=== PATIENT | female | born 1950 | race Caucasian/White ===

== ENCOUNTER 2017-11-22 13:22 | Inpatient (IN) | payer OTHER ==
--- NOTE | 2017-11-22 13:43 | PDOC ---
History of Present Illness <Marty Patino - Last Filed: 11/22/17 17:23> - History of Present Illness Initial Comments: 11/22/17 13:41 67 yo F with h/o HTN, hypothyroidism, chronic gastritis,C5 spinal fusion (2 years ago) and recurrent C5 spinal stenosis who p/w preop for cervical spinal fusion. Patient with 1-2 years of worsening left hand tingling, frontal OQUENDO's, and lightheadedness. Has received serial CT and MRI C-SPINE imaging Q1-Q3 months with worsening cervical stenosis. Patient advised to undergo operative repair 1 year ago per daughter at bedside, but refused. Denies F/C, N/V, CP, SOB, abdominal pain, diarrhea, constipation, urinary complaints, weakness. PMH: As noted above. On ASA 81 mg QD with last use x [address] Isak Rodriguez (orthopedist) [phone]. ROS: as noted above SHx: Denies tobacco, Etoh, IVDA Allergies: Codeine, Penicillin, Morphine, Ibruprofen (Hives) <Eliu Lala - Last Filed: 11/22/17 19:00> - General Chief Complaint: Pain, Acute Stated Complaint: PRE-OP, ADMIT Time Seen by Provider: 11/22/17 13:40 Past History <Marty Patino - Last Filed: 11/22/17 17:23> - Past Medical History Asthma: Yes COPD: No DVT: No Dementia: No GI Disorders: Yes (gastritis / IBS/ GERD) HTN: Yes Psychiatric Problems: Yes (anxiety/ depression) Seizures: Yes (hypo) Other medical history: headache - Surgical History Abdominal Surgery: Yes Appendectomy: Yes Cholecystectomy: Yes Neurologic Surgery: Yes (Clot removal s/p stroke) - Immunization History Immunization Up to Date: Yes - Suicide/Smoking/Psychosocial Hx Smoking History: Never smoked Information on smoking cessation initiated: No Hx Alcohol Use: No Drug/Substance Use Hx: No Substance Use Type: None <Eliu Lala - Last Filed: 11/22/17 19:00> - Past Medical History Allergies/Adverse Reactions: Allergies Allergy/AdvReac Type Severity Reaction Status Date / Time acetaminophen [From Percocet] Allergy Verified 11/22/17 13:30 codeine Allergy Verified 11/22/17 13:30 diphenhydramine Allergy Verified 11/22/17 13:30 [From Benadryl Allergy] hydromorphone Allergy Verified 11/22/17 13:30 ibuprofen [From Motrin] Allergy Verified 11/22/17 13:30 ketamine Allergy Verified 11/22/17 13:30 metoclopramide [From Reglan] Allergy Verified 11/22/17 13:30 morphine Allergy Verified 11/22/17 13:30 oxycodone [From Percocet] Allergy Verified 11/22/17 13:30 Penicillins Allergy Verified 11/22/17 13:30 prednisone Allergy Verified 11/22/17 13:30 sulfur [From Sulfur-8] Allergy Verified 11/22/17 13:30 tizanidine Allergy Verified 11/22/17 13:30 Home Medications: Ambulatory Orders Aspirin [ASA -] 81 mg PO DAILY 11/22/17 Famotidine [Pepcid -] 40 mg PO DAILY 11/22/17 Fluticasone Prop 0.05% Nasal [Flonase -] 1 - 2 spray NS DAILY 11/22/17 LORazepam [Ativan] 0.5 mg PO DAILY 11/22/17 Levothyroxine [Synthroid -] 50 mcg PO DAILY 11/22/17 Lisinopril [Prinivil -] 40 mg PO DAILY 11/22/17 Metoprolol Tartrate 25 mg PO DAILY 11/22/17 Montelukast Sodium [Singulair] 10 mg PO DAILY 11/22/17 Sertraline HCl [Zoloft] 25 mg PO DAILY 11/22/17 Review of Systems - Review of Systems Comments:: 11/22/17 13:40 GENERAL/CONSTITUTIONAL: No fever or chills. No weakness. HEAD, EYES, EARS, NOSE AND THROAT: No change in vision. No ear pain or discharge. No sore throat. CARDIOVASCULAR: No chest pain or shortness of breath RESPIRATORY: No cough, wheezing, or hemoptysis. GASTROINTESTINAL: No nausea, vomiting, diarrhea or constipation. GENITOURINARY: No dysuria, frequency, or change in urination. MUSCULOSKELETAL: No joint or muscle swelling or pain. SKIN: No rash NEUROLOGIC: No headache, vertigo, loss of consciousness, or change in strength/ sensation. ENDOCRINE: No increased thirst. No abnormal weight change HEMATOLOGIC/LYMPHATIC: No anemia, easy bleeding, or history of blood clots. ALLERGIC/IMMUNOLOGIC: No hives or skin allergy. <Eliu Lala - Last Filed: 11/22/17 19:00> *Physical Exam - Vital Signs Last Vital Signs Temp Pulse Resp BP Pulse Ox 98.5 F 74 16 114/71 98 11/22/17 13:31 11/22/17 13:31 11/22/17 13:31 11/22/17 13:31 11/22/17 14:37 <Marty Patino - Last Filed: 11/22/17 17:23> - Vital Signs Last Vital Signs Temp Pulse Resp BP Pulse Ox 98.5 F 74 16 114/71 99 11/22/17 13:31 11/22/17 13:31 11/22/17 13:31 11/22/17 13:31 11/22/17 13:31 - Physical Exam Comments: 11/22/17 13:41 GENERAL: Awake, alert, and fully oriented, in no acute distress HEAD: No signs of trauma, normocephalic, atraumatic EYES: PERRLA, EOMI, sclera anicteric, conjunctiva clear ENT: Hearing grossly normal, nares patent, oropharynx clear without exudates. Moist mucosa NECK: Normal ROM, supple, no lymphadenopathy, JVD, or masses LUNGS: No distress, speaks full sentences, clear to auscultation bilaterally HEART: Regular rate and rhythm, normal S1 and S2, no murmurs, rubs or gallops, peripheral pulses normal and equal bilaterally. ABDOMEN: Soft, nontender, normoactive bowel sounds. No guarding, no rebound. No masses EXTREMITIES : Normal inspection, Normal range of motion, no edema. No clubbing or cyanosis. NEUROLOGICAL: Cranial nerves II through XII grossly intact. Normal speech, normal gait, no focal motor deficits SKIN: Warm, Dry, normal turgor, no rashes or lesions noted <Eliu Lala - Last Filed: 11/22/17 19:00> ED Treatment Course - LABORATORY CBC & Chemistry Diagram: 11/22/17 14:25 11/22/17 14:25 - ADDITIONAL ORDERS Additional order review: Laboratory Results 11/22/17 11/22/17 11/22/17 14:25 14:25 14:25 PT with INR 11.30 INR 1.00 PTT (Actin FS) Sodium 141 Potassium 4.3 Chloride 106 Carbon Dioxide 27 Anion Gap 8 BUN 21 H Creatinine 1.1 H Creat Clearance w eGFR 49.85 Random Glucose 99 Calcium 8.6 Total Bilirubin 0.8 AST 16 ALT 22 Alkaline Phosphatase 60 Creatine Kinase 41 Troponin I < 0.02 Total Protein 6.9 Albumin 3.6 Blood Type A POSITIVE Antibody Screen Positive H Antibody Identification Anti e Antigen Identification No Result Required. 11/22/17 14:25 PT with INR INR PTT (Actin FS) 25.5 L Sodium Potassium Chloride Carbon Dioxide Anion Gap BUN Creatinine Creat Clearance w eGFR Random Glucose Calcium Total Bilirubin AST ALT Alkaline Phosphatase Creatine Kinase Troponin I Total Protein Albumin Blood Type Antibody Screen Antibody Identification Antigen Identification 11/22/17 14:25 RBC 4.04 MCV 93.1 MCHC 34.8 RDW 14.4 MPV 7.5 Neutrophils % 70.9 Lymphocytes % 17.4 Monocytes % 10.9 H Eosinophils % 0.4 Basophils % 0.4 <Marty Patino - Last Filed: 11/22/17 17:23> - LABORATORY CBC & Chemistry Diagram: 11/22/17 14:25 11/22/17 14:25 <Eliu Lala - Last Filed: 11/22/17 19:00> Medical Decision Making - Medical Decision Making 11/22/17 14:15 67 yo F with h/o HTN, hypothyroidism, chronic gastritis,C5 spinal fusion (2 years ago) and recurrent C5 spinal stenosis who p/w preop for cervical spinal fusion. A&Ox3, VSS. Patient referred from outside orthopedics Dr. Isak Su [phone] for preoperative evaluation and admission. ED Course: CBC, CMP, PT/INR, aPTT, Cardiac Pr EKG, CXR 11/22/17 15:43 Spoke to answering service. Information to be faxed to [facility] ED. 11/22/17 18:59 Patient to be admitted to Dr. Schofield per Dr.David Rodriguez for fall risk and preop with multiple medical comorbidities. CBC, CMP: Unremarkable EKG: NSR with absent acute ischemic changes ( STD/SAMMY). Normal intervals. CXR: Unremarkable with absent acute pathology. <Eliu Lala - Last Filed: 11/22/17 19:00> *DC/Admit/Observation/Transfer - Discharge Dispostion Decision to Admit order: Yes <Marty Patino - Last Filed: 11/22/17 17:23> <Eliu Lala - Last Filed: 11/22/17 19:00> Diagnosis at time of Disposition: Myelopathy, Neck pain - Discharge Dispostion Condition at time of disposition: Stable
[2017-11-22 14:39] LABS: BASO % 0.4 % (0-2.0); EOS % 0.4 % (0-4.5); HEMATOCRIT 37.6 % (32.4-45.2); HEMOGLOBIN 13.1 GM/dL (10.7-15.3); LYMPH % 17.4 % (8-40); MCH 32.4 pg (25.7-33.7); MCHC 34.8 g/dl (32.0-36.0); MEAN CELL VOLUME 93.1 fl (80-96); MEAN PLT VOLUME 7.5 fl (7.5-11.1); MONO % 10.9 % (3.8-10.2); NEUT % 70.9 % (42.8-82.8); PLATELET COUNT 223 K/MM3 (134-434); RBC 4.04 M/mm3 (3.60-5.2); RDW 14.4 % (11.6-15.6); WHITE BLOOD COUNT 6.5 K/mm3 (4.0-10.0)
--- NOTE | 2017-11-22 14:49 | PDOC ---
Attending Attestation - Resident Resident Name: SpikeFrankEliu - ED Attending Attestation I have performed the following: I have examined & evaluated the patient, The case was reviewed & discussed with the resident, I agree w/resident's findings & plan, Exceptions are as noted - HPI HPI: 11/22/17 14:47 67y hx of htn, hypothyroidism, hx of c5 fusion presents with recurrent stenosis , had declined surgery initially, but now with worsening neurologic symptoms including hand tingling/headache due to bony growth in her cervical spine. Pt was scheduled for surgery on saturday by Dr. Doll and was sent to the ED for evalution by Dr. Doll. Pt denies any new acute complaints, fever/chills, cough , sob, cp, abd pain, dirarhea, leg swelling, extermity weakness. [phone] Yara Kenyon Surogical coordinator - Physicial Exam PE: 11/26/17 05:52 see above - Medical Decision Making 11/22/17 17:05 pts labs were reviewed and unremarkable ekg is NSR will discuss with dr. Doll regarding further plan 11/22/17 17:[address] Merlos service, requests admission for rapidly progressing myelopathy as pt is a fall risk case dw [employer] Sg[employer], will admit to dr. stuart service Case discussed in detail with admitting physician including history, physical exam and ancillary studies. Admitting physician has assumed care for the patient, will follow all pending diagnostics and will complete the evaluation and treatment. Heart Score/ECG Review - ECG Impressions Comment:: 11/22/17 16:39 Twelve-lead EKG was performed and reviewed by me. There is normal sinus rhythm with a normal rate. rate of 60 The axis is normal. The intervals are normal. There is normal R wave progression There are no ST or T wave abnormalities. Impression: Normal twelve-lead EKG
[2017-11-22 14:52] LABS: PROTHROMBIN TIME (PATIENT) 11.3 SEC (9.7-13.0)
[2017-11-22 15:04] LABS: ALBUMIN 3.6 g/dl (3.4-5.0); ANION GAP 8 (8-16); BILIRUBIN,TOTAL 0.8 mg/dL (0.2-1.0); BLOOD UREA NITROGEN 21 mg/dL (7-18); CALCIUM 8.6 mg/dL (8.5-10.1); CHLORIDE 106 mmol/L (98-107); CO2 27 mmol/L (21-32); CREATININE 1.1 mg/dL (0.55-1.02); GLUCOSE,RANDOM 99 mg/dL (74-106); POTASSIUM 4.3 mmol/L (3.5-5.1); SGOT/AST 16 U/L (15-37); SGPT/ALT 22 U/L (12-78); SODIUM 141 mmol/L (136-145); TOT PROT 6.9 g/dl (6.4-8.2)
[2017-11-22 15:06] LABS: ALK PHOS 60 U/L (45-117)
--- NOTE | 2017-11-22 18:08 | HP ---
CHIEF COMPLAINT: Instructed to come in by Dr. 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 The patient reports a history of cervical spine surgery, most recent fusion 17 months ago. She reports over the past 2 months the pain in the neck has worsened and is accompanied by spasms and pain shooting down into her shoulders. About 3.5 weeks ago, the patient developed a frontal headache with temporal pain. She went to the ED at [facility] where they found she had an elevated BP and performed a head CT with showed a "normal brain". The patient saw Dr. Tovar who did further imaging of her neck and stated worsening status and will need to perform surgery on Saturday 11/25. The patient arrived in the ED today for pre- op clearance for surgery on Saturday. The patient denies any chest pain, lower extremity edema, urinary symptoms. The patient reports that she does get dizzy once in a while. Off note, the patient states that she had has heart palpitations about one month ago and wore a holter monitor. She is unaware of the results of the monitor. Her ophthalmic dispenser is Dr. 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 Lumbar fusion 08/2007, hardware removal 08/2008 Cholecystectomy 08/2008 Thyroidectomy 1971 Social History: Smoking: denies Alcohol: denies Drugs: denies Family History: Allergies acetaminophen [From Percocet] Allergy (Verified 11/22/17 13:30) codeine Allergy (Verified 11/22/17 13:30) diphenhydramine [From Benadryl Allergy] Allergy (Verified 11/22/17 13:30) hydromorphone Allergy (Verified 11/22/17 13:30) ibuprofen [From Motrin] Allergy (Verified 11/22/17 13:30) ketamine Allergy (Verified 11/22/17 13:30) metoclopramide [From Reglan] Allergy (Verified 11/22/17 13:30) morphine Allergy (Verified 11/22/17 13:30) oxycodone [From Percocet] Allergy (Verified 11/22/17 13:30) Penicillins Allergy (Verified 11/22/17 13:30) prednisone Allergy (Verified 11/22/17 13:30) sulfur [From Sulfur-8] Allergy (Verified 11/22/17 13:30) tizanidine Allergy (Verified 11/22/17 13:30) HOME MEDICATIONS: Home Medications Medication Instructions Recorded Aspirin [ASA -] 81 mg PO DAILY 11/22/17 Famotidine [Pepcid -] 40 mg PO DAILY 11/22/17 Fluticasone Prop 0.05% Nasal 1 - 2 spray NS DAILY 11/22/17 [Flonase -] LORazepam [Ativan] 0.5 mg PO DAILY 11/22/17 Levothyroxine [Synthroid -] 50 mcg PO DAILY 11/22/17 Lisinopril [Prinivil -] 40 mg PO DAILY 11/22/17 Metoprolol Tartrate 25 mg PO DAILY 11/22/17 Montelukast Sodium [Singulair] 10 mg PO DAILY 11/22/17 Sertraline HCl [Zoloft] 25 mg PO DAILY 11/22/17 REVIEW OF SYSTEMS CONSTITUTIONAL: Absent: fever, chills, diaphoresis, generalized weakness, malaise, loss of appetite, weight change HEENT: Absent: rhinorrhea, nasal congestion, throat pain, throat swelling, difficulty swallowing, mouth swelling, ear pain, eye pain, visual changes CARDIOVASCULAR: Palpitations about 1 month ago, had a holter monitor as an outpatient Absent: chest pain, syncope, irregular heart rate, lightheadedness, peripheral edema RESPIRATORY: Absent: cough, shortness of breath, dyspnea with exertion, orthopnea, wheezing, stridor, hemoptysis GASTROINTESTINAL: Absent: abdominal pain, abdominal distension, nausea, vomiting, diarrhea, constipation, melena, hematochezia GENITOURINARY: Absent: dysuria, frequency, urgency, hesitancy, hematuria, flank pain, genital pain MUSCULOSKELETAL: Cervical neck pain radiating up her head and to shoulders and down arms for several months now. SKIN: Absent: rash, itching, pallor HEMATOLOGIC/IMMUNOLOGIC: Absent: easy bleeding, easy bruising, lymphadenopathy, frequent infections ENDOCRINE: Absent: unexplained weight gain, unexplained weight loss, heat intolerance, cold intolerance NEUROLOGIC: Absent: headache, focal weakness or paresthesias, dizziness, unsteady gait, seizure, mental status changes, bladder or bowel incontinence PSYCHIATRIC: Absent: anxiety, depression, suicidal or homicidal ideation, hallucinations. PHYSICAL EXAMINATION Vital Signs - 24 hr 11/22/17 11/22/17 13:31 14:37 Temperature 98.5 F Pulse Rate 74 Respiratory 16 Rate Blood Pressure 114/71 O2 Sat by Pulse 99 98 Oximetry (%) GENERAL: Awake, alert, and fully oriented, in no acute distress. HEAD: Normal with no signs of trauma. EYES: Pupils equal, round and reactive to light, extraocular movements intact, sclera anicteric, conjunctiva clear. No lid lag. EARS, NOSE, THROAT: Ears normal, nares patent, oropharynx clear without exudates. Moist mucous membranes. NECK: Wearing soft collar. LUNGS: Breath sounds equal, clear to auscultation bilaterally. No wheezes, and no crackles. No accessory muscle use. HEART: Regular rate and rhythm, normal S1 and S2 without murmur, rub or gallop. ABDOMEN: Soft, nontender, not distended, normoactive bowel sounds, no guarding, no rebound, no masses. No hepatomegaly or splenomegaly. MUSCULOSKELETAL: Normal range of motion at all joints. No bony deformities or tenderness. No CVA tenderness. UPPER EXTREMITIES: 2+ pulses, warm, well-perfused. No cyanosis. No clubbing. No peripheral edema. LOWER EXTREMITIES: 2+ pulses, warm, well-perfused. No calf tenderness. No peripheral edema. NEUROLOGICAL: Slight left mouth droop which daught states the patient has had "forever". Decreased muscle strength in b/l upper extremities 3/5. B/l lower extremities with 5/5 muscle strength PSYCHIATRIC: Cooperative. Good eye contact. Appropriate mood and affect. SKIN: Warm, dry, normal turgor, no rashes or lesions noted, normal capillary refill. Laboratory Results - last 24 hr 11/22/17 11/22/17 11/22/17 14:25 14:25 14:25 WBC 6.5 RBC 4.04 Hgb 13.1 Hct 37.6 MCV 93.1 MCH 32.4 MCHC 34.8 RDW 14.4 Plt Count 223 MPV 7.5 Neutrophils % 70.9 Lymphocytes % 17.4 Monocytes % 10.9 H Eosinophils % 0.4 Basophils % 0.4 PT with INR 11.30 INR 1.00 PTT (Actin FS) 25.5 L Sodium Potassium Chloride Carbon Dioxide Anion Gap BUN Creatinine Creat Clearance w eGFR Random Glucose Calcium Total Bilirubin AST ALT Alkaline Phosphatase Creatine Kinase Troponin I Total Protein Albumin Blood Type Antibody Screen Antibody Identification Antigen Identification 11/22/17 11/22/17 14:25 14:25 WBC RBC Hgb Hct MCV MCH MCHC RDW Plt Count MPV Neutrophils % Lymphocytes % Monocytes % Eosinophils % Basophils % PT with INR INR PTT (Actin FS) Sodium 141 Potassium 4.3 Chloride 106 Carbon Dioxide 27 Anion Gap 8 BUN 21 H Creatinine 1.1 H Creat Clearance w eGFR 49.85 Random Glucose 99 Calcium 8.6 Total Bilirubin 0.8 AST 16 ALT 22 Alkaline Phosphatase 60 Creatine Kinase 41 Troponin I < 0.02 Total Protein 6.9 Albumin 3.6 Blood Type A POSITIVE Antibody Screen Positive H Antibody Identification Anti e Antigen Identification No Result Required. Assessment: This is a 67 year old female with PMHx of HTN, hypothyroidism, CVA ( s/p TPA with hemorrhagic conversion requiring evacuation/surgery), multiple back surgeries, who presented to the ED with progressively worsening headache, neck pain radiating to her shoulders and down her arms. Plan: 1) Worsening neck pain - Patient has recent imaging of neck on a disc, does not have the report. She states worsening bone growth into cervical spine and will be having surgery with Dr. Tovar on Saturday - Pre-op clearance - F/u Dr. Tovar consult for surgery details 2) HTN - HTN here in ED likely 2/2 anxiety. Will give Ativan and monitor BP closely - Continue Lisinopril - Continue Toprol XL 3) Hypothyroidism - Continue Synthroid 4) Hx of CVA - 2.5 years ago, received TPA, had hemorrhagic conversion and had evacuation surgery - F/u neuro consult for clearance 5) F/E/N: - Sodium controlled diet - Monitor electrolytes 6) Prophylaxis: - SCDs bilaterally - No chemical DVT prophylaxis until evaluated by neuro (hx of CVA with hemorrhagic conversion after tpa) 7) Dispo: - Requires continued inpatient care CODE STATUS: FULL CODE Visit type - Emergency Visit Emergency Visit: Yes ED Registration Date: 11/22/17 Care time: The patient presented to the Emergency Department on the above date and was hospitalized for further evaluation of their emergent condition. - New Patient This patient is new to me today: Yes Date on this admission: 12/10/17 - Critical Care Critical Care patient: No Hospitalist Screening - Colonoscopy Questionnaire Colonoscopy Questionnaire: Colonoscopy Questionnaire - Patient: 50 - 75 years old and never had a screening colonoscopy: Unknown History of colon or rectal polyps, or CA: Unknown History of IBD, Crohn's disease or UC: Unknown History of abdominal radiation therapy as a child: Unknown - Relative: 1 with colon or rectal CA, or polyps at age 60 or younger: Unknown Colon or rectal CA diagnosed at age 45 or younger: Unknown Multiple relatives with colon or rectal CA: Unknown - Outcome: Screening Result: Negative Screen
[2017-11-22] MEDS ORDERED: hydrALAZINE HCL 10 MG TABLET PO ONE (18:11)
[2017-11-22] MEDS ORDERED: LORazepam 0.5 MG TABLET PO ONE (18:25)
[2017-11-22] MEDS ORDERED: LORazepam 0.5 MG TABLET ONE (18:27)
[2017-11-22 20:11] LABS: URINE APPEARANCE Clear; URINE BILIRUBIN Negative (NEGATIVE); URINE GLUCOSE (UA) Negative (NEGATIVE); URINE KETONE Negative (NEGATIVE); URINE LEUK ESTERASE Negative (NEGATIVE); URINE NITRITE Negative (NEGATIVE); URINE PROTEIN Negative (NEGATIVE); URINE UROBILINOGEN 0.2 (0.2-1.0)
[2017-11-22 20:13] LABS: URINE COLOR YELLOW
[2017-11-22 20:25] LABS: EPI CELLS NONE SEEN /HPF; URINE WBC 0-2 (0-5)
[2017-11-22 20:26] LABS: URINE BACTERIA NONE SEEN /hpf (NEGATIVE)
[2017-11-22] MEDS: RANITIDINE HCL 150 MG TABLET (FP) PO SCH (21:45)
[2017-11-22 22:11] VITALS: BMI 23.6
[2017-11-23] MEDS: LEVOTHYROXINE NA 50 MCG TABLET (FP) PO SCH (06:11)
--- NOTE | 2017-11-23 08:21 | EKG ---
Test Reason : Blood Pressure : / mmHG Vent. Rate : 060 BPM Atrial Rate : 060 BPM P-R Int : 134 ms QRS Dur : 084 ms QT Int : 434 ms P-R-T Axes : 065 024 048 degrees QTc Int : 434 ms NORMAL SINUS RHYTHM NORMAL ECG NO PREVIOUS ECGS AVAILABLE Confirmed by SHASHANK REAVES, ADRIEL ([id number]) on 11/23/2017 8:21:14 AM Referred By: Confirmed By:ADRIEL ENCARNACION MD
[2017-11-23 08:45] LABS: HEMATOCRIT 36.4 % (32.4-45.2); HEMOGLOBIN 12.4 GM/dL (10.7-15.3); MCH 31.8 pg (25.7-33.7); MEAN CELL VOLUME 93.5 fl (80-96); PLATELET COUNT 214 K/MM3 (134-434); RBC 3.89 M/mm3 (3.60-5.2); RDW 14.4 % (11.6-15.6)
[2017-11-23] MEDS: LORazepam 0.5 MG TABLET PO SCH ×2 (09:12→09:15)
[2017-11-23] MEDS: LISINOPRIL 20 MG TABLET (FP) PO SCH (09:12)
[2017-11-23] MEDS: SERTRALINE HCL 25 MG TABLET (FP) PO SCH (09:12)
[2017-11-23] MEDS ORDERED: DOCUSATE SODIUM 100 MG CAPSULE (FP) PO PRN (09:39)
[2017-11-23] MEDS ORDERED: LORazepam 0.5 MG TABLET PO PRN (09:39)
[2017-11-23 09:46] LABS: ALBUMIN 3.6 g/dl (3.4-5.0); ALK PHOS 55 U/L (45-117); ANION GAP 6 (8-16); BLOOD UREA NITROGEN 20 mg/dL (7-18); CALCIUM 8.5 mg/dL (8.5-10.1); CHLORIDE 108 mmol/L (98-107); CO2 28 mmol/L (21-32); CREATININE 1.1 mg/dL (0.55-1.02); GLUCOSE,RANDOM 80 mg/dL (74-106); MAGNESIUM 2.4 mg/dL (1.8-2.4); PHOSPHOROUS 3.9 mg/dL (2.5-4.9); SGOT/AST 14 U/L (15-37); SGPT/ALT 19 U/L (12-78); SODIUM 142 mmol/L (136-145); TOT PROT 6.6 g/dl (6.4-8.2)
[2017-11-23] MEDS ORDERED: MONTELUKAST NA 10 MG TABLET PO SCH (10:00)
[2017-11-23] MEDS ORDERED: PATIENT'S OWN MEDICATION (NON-FORMULARY) (Lisinopril [Prinivil -] 40 MG) PO SCH (10:00)
[2017-11-23] MEDS ORDERED: PATIENT'S OWN MEDICATION (NON-FORMULARY) (Famotidine [Pepcid -] 40 MG) PO SCH (10:00)
[2017-11-23] MEDS ORDERED: METOPROLOL TARTRATE 25 MG TABLET (FP) PO SCH (10:00)
[2017-11-23] MEDS ORDERED: PNEUMOC 13-VAL CONJ-DIP CRM/PF 0.5 ML DISP.SYRIN IM ONE (10:00)
--- NOTE | 2017-11-23 10:21 | PN ---
Progress Note (short form) - Note Progress Note: Subjective: The patient was seen and examined at the bedside, she has no complaints at this time The patient is requesting a stool softener Current Medications Generic Name Dose Route Start Last Admin Trade Name Freq PRN Reason Stop Dose Admin Docusate Sodium 100 mg 11/23/17 09:39 Colace - PO Q8H PRN CONSTIPATION Fluticasone Propionate 2 spray 11/23/17 10:00 Flonase - NS DAILY PACO Levothyroxine Sodium 50 mcg 11/23/17 07:00 11/23/17 06:11 Synthroid - PO 50 mcg ACBK PACO Administration Lisinopril 40 mg 11/23/17 10:00 11/23/17 09:12 Prinivil PO 40 mg DAILY PACO Administration Lorazepam 0.5 mg 11/23/17 09:39 Ativan - PO DAILY PRN ANXIETY Metoprolol Tartrate 25 mg 11/23/17 10:00 Lopressor - PO DAILY PACO Montelukast Sodium 10 mg 11/23/17 22:00 Singulair - PO HS PACO Ranitidine HCl 300 mg 11/22/17 22:00 11/22/17 21:45 Zantac - PO 300 mg HS PACO Administration Sertraline HCl 25 mg 11/23/17 10:00 11/23/17 09:12 Zoloft - PO 25 mg DAILY PACO Administration Objective: Vital Signs Period Temp Pulse Resp BP Sys/Dominguez Pulse Ox Last 24 Hr 97.7 F-98.6 F 60-74 16-18 114-183/45-86 98-99 Physical Exam: General: NAD, A&Ox3 Lungs: CTA bilaterally Heart: RRR, S1S2 Abd: Soft, non-tender, non-distended. Normoactive bowel sounds Ext: B/l upper extremities with decreased strength, 3/5. B/l lower extremities 5 /5 strength Neuro: Slight left mouth droop (daughter states patient has had this "forever") CBCD WBC 4.0 K/mm3 (4.0-10.0) D 11/23/17 08:00 RBC 3.89 M/mm3 (3.60-5.2) 11/23/17 08:00 Hgb 12.4 GM/dL (10.7-15.3) 11/23/17 08:00 Hct 36.4 % (32.4-45.2) 11/23/17 08:00 MCV 93.5 fl (80-96) 11/23/17 08:00 MCHC 34.0 g/dl (32.0-36.0) 11/23/17 08:00 RDW 14.4 % (11.6-15.6) 11/23/17 08:00 Plt Count 214 K/MM3 (134-434) 11/23/17 08:00 MPV 8.0 fl (7.5-11.1) 11/23/17 08:00 CMP Sodium 142 mmol/L (136-145) 11/23/17 08:00 Potassium 4.0 mmol/L (3.5-5.1) 11/23/17 08:00 Chloride 108 mmol/L (98-107) H 11/23/17 08:00 Carbon Dioxide 28 mmol/L (21-32) 11/23/17 08:00 Anion Gap 6 (8-16) L 11/23/17 08:00 BUN 20 mg/dL (7-18) H 11/23/17 08:00 Creatinine 1.1 mg/dL (0.55-1.02) H 11/23/17 08:00 Creat Clearance w eGFR 49.85 (>60) 11/23/17 08:00 Random Glucose 80 mg/dL (74-106) 11/23/17 08:00 Calcium 8.5 mg/dL (8.5-10.1) 11/23/17 08:00 Total Bilirubin 1.0 mg/dL (0.2-1.0) D 11/23/17 08:00 AST 14 U/L (15-37) L 11/23/17 08:00 ALT 19 U/L (12-78) 11/23/17 08:00 Alkaline Phosphatase 55 U/L (45-117) 11/23/17 08:00 Total Protein 6.6 g/dl (6.4-8.2) 11/23/17 08:00 Albumin 3.6 g/dl (3.4-5.0) 11/23/17 08:00 CARDIAC ENZYMES Creatine Kinase 41 IU/L (26-192) 11/22/17 14:25 Troponin I < 0.02 ng/ml (0.00-0.05) 11/22/17 14:25 Assessment: This is a 67 year old female with PMHx of HTN, hypothyroidism, CVA ( s/p TPA with hemorrhagic conversion requiring evacuation/surgery), multiple back surgeries, who presented to the ED with progressively worsening headache, neck pain radiating to her shoulders and down her arms. Plan: 1) Worsening neck pain - Patient has recent imaging of neck on a disc, does not have the report. She states worsening bone growth into cervical spine and will be having surgery with Dr. Tovar on Saturday - Pre-op clearance - F/u Dr. Tovar consult for surgery details 2) HTN - Continue Lisinopril - Continue Toprol XL 3) Hypothyroidism - Continue Synthroid 4) Palpitations - Patient reports about 1 month ago she had a holter monitor placed with her [employer] operator - Attempt to call office to retrieve records Dr. Hiwot Yeh ([phone]) 5) Hx of CVA - 2.5 years ago, received TPA, had hemorrhagic conversion and had evacuation surgery - F/u neuro consult for clearance 6) F/E/N: - Sodium controlled diet - Monitor electrolytes 7) Prophylaxis: - SCDs bilaterally - No chemical DVT prophylaxis until evaluated by neuro (hx of CVA with hemorrhagic conversion after tpa) - [place] 8) Dispo: - Requires continued inpatient care CODE STATUS: FULL CODE Visit type - Emergency Visit Emergency Visit: Yes ED Registration Date: 11/22/17 Care time: The patient presented to the Emergency Department on the above date and was hospitalized for further evaluation of their emergent condition. - New Patient This patient is new to me today: No - Critical Care Critical Care patient: No
[2017-11-23] MEDS ORDERED: PT OWN MED DRAWER 7, Y5N ONE ×2 (10:51→23:38)
--- NOTE | 2017-11-23 12:25 | CONSULT ---
Consult - text type - Consultation Consultation Note: Neurology CHIEF COMPLAINT: Instructed to come in by Dr. Tovar for emergency surgery HISTORY OF PRESENT ILLNESS: History obtained from patient and chart. 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 The patient reports a history of cervical spine surgery, most recent fusion 17 months ago. She reported over the past 2 months the pain in the neck has worsened and is accompanied by spasms and pain shooting down into her shoulders. About 3.5 weeks ago, the patient developed a frontal headache with temporal pain. She went to the ED at [facility] where they found she had an elevated BP and performed a head CT with showed a "normal brain". The patient saw Dr. Tovar who did further imaging of her neck and stated worsening status and will need to perform surgery on Saturday 11/25. The patient arrived in the ED for ongoing management and possible surgical intervention. Patient to have medical clearance. Her ASA has been stopped. Regarding surgery, she does have a baseline risk of infarct as well as risk for bleed due to her prior history, no further risk noted. These to be weighed by surgeon in evaluating risk/benefit, defer to patient and surgeon regarding further surgical intervention. 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 Lumbar fusion 08/2007, hardware removal 08/2008 Cholecystectomy 08/2008 Thyroidectomy 1971 Social History: Smoking: denies Alcohol: denies Drugs: denies Family History: [place] Allergies acetaminophen [From Percocet] Allergy (Verified 11/22/17 13:30) codeine Allergy (Verified 11/22/17 13:30) diphenhydramine [From Benadryl Allergy] Allergy (Verified 11/22/17 13:30) hydromorphone Allergy (Verified 11/22/17 13:30) ibuprofen [From Motrin] Allergy (Verified 11/22/17 13:30) ketamine Allergy (Verified 11/22/17 13:30) metoclopramide [From Reglan] Allergy (Verified 11/22/17 13:30) morphine Allergy (Verified 11/22/17 13:30) oxycodone [From Percocet] Allergy (Verified 11/22/17 13:30) Penicillins Allergy (Verified 11/22/17 13:30) prednisone Allergy (Verified 11/22/17 13:30) sulfur [From Sulfur-8] Allergy (Verified 11/22/17 13:30) tizanidine Allergy (Verified 11/22/17 13:30) HOME MEDICATIONS: Home Medications Medication Instructions Recorded Aspirin [ASA -] 81 mg PO DAILY 11/22/17 Famotidine [Pepcid -] 40 mg PO DAILY 11/22/17 Fluticasone Prop 0.05% Nasal 1 - 2 spray NS DAILY 11/22/17 [Flonase -] LORazepam [Ativan] 0.5 mg PO DAILY 11/22/17 Levothyroxine [Synthroid -] 50 mcg PO DAILY 11/22/17 Lisinopril [Prinivil -] 40 mg PO DAILY 11/22/17 Metoprolol Tartrate 25 mg PO DAILY 11/22/17 Montelukast Sodium [Singulair] 10 mg PO DAILY 11/22/17 Sertraline HCl [Zoloft] 25 mg PO DAILY 11/22/17 REVIEW OF SYSTEMS CONSTITUTIONAL: Absent: fever, chills, diaphoresis, generalized weakness, malaise, loss of appetite, weight change HEENT: Absent: rhinorrhea, nasal congestion, throat pain, throat swelling, difficulty swallowing, mouth swelling, ear pain, eye pain, visual changes CARDIOVASCULAR: Palpitations about 1 month ago, had a holter monitor as an outpatient Absent: chest pain, syncope, irregular heart rate, lightheadedness, peripheral edema RESPIRATORY: Absent: cough, shortness of breath, dyspnea with exertion, orthopnea, wheezing, stridor, hemoptysis GASTROINTESTINAL: Absent: abdominal pain, abdominal distension, nausea, vomiting, diarrhea, constipation, melena, hematochezia GENITOURINARY: Absent: dysuria, frequency, urgency, hesitancy, hematuria, flank pain, genital pain MUSCULOSKELETAL: Cervical neck pain radiating up her head and to shoulders and down arms for several months now. SKIN: Absent: rash, itching, pallor HEMATOLOGIC/IMMUNOLOGIC: Absent: easy bleeding, easy bruising, lymphadenopathy, frequent infections ENDOCRINE: Absent: unexplained weight gain, unexplained weight loss, heat intolerance, cold intolerance NEUROLOGIC: Absent: headache, focal weakness or paresthesias, dizziness, unsteady gait, seizure, mental status changes, bladder or bowel incontinence PSYCHIATRIC: Absent: anxiety, depression, suicidal or homicidal ideation, hallucinations. PHYSICAL EXAMINATION CBCD WBC 4.0 K/mm3 (4.0-10.0) D 11/23/17 08:00 RBC 3.89 M/mm3 (3.60-5.2) 11/23/17 08:00 Hgb 12.4 GM/dL (10.7-15.3) 11/23/17 08:00 Hct 36.4 % (32.4-45.2) 11/23/17 08:00 MCV 93.5 fl (80-96) 11/23/17 08:00 MCHC 34.0 g/dl (32.0-36.0) 11/23/17 08:00 RDW 14.4 % (11.6-15.6) 11/23/17 08:00 Plt Count 214 K/MM3 (134-434) 11/23/17 08:00 MPV 8.0 fl (7.5-11.1) 11/23/17 08:00 CMP Sodium 142 mmol/L (136-145) 11/23/17 08:00 Potassium 4.0 mmol/L (3.5-5.1) 11/23/17 08:00 Chloride 108 mmol/L (98-107) H 11/23/17 08:00 Carbon Dioxide 28 mmol/L (21-32) 11/23/17 08:00 Anion Gap 6 (8-16) L 11/23/17 08:00 BUN 20 mg/dL (7-18) H 11/23/17 08:00 Creatinine 1.1 mg/dL (0.55-1.02) H 11/23/17 08:00 Creat Clearance w eGFR 49.85 (>60) 11/23/17 08:00 Calcium 8.5 mg/dL (8.5-10.1) 11/23/17 08:00 Total Bilirubin 1.0 mg/dL (0.2-1.0) D 11/23/17 08:00 AST 14 U/L (15-37) L 11/23/17 08:00 ALT 19 U/L (12-78) 11/23/17 08:00 Alkaline Phosphatase 55 U/L (45-117) 11/23/17 08:00 Total Protein 6.6 g/dl (6.4-8.2) 11/23/17 08:00 Albumin 3.6 g/dl (3.4-5.0) 11/23/17 08:00 GENERAL: Awake, alert, and fully oriented, in no acute distress. HEAD: Normal with no signs of trauma. EYES: Pupils equal, round and reactive to light, extraocular movements intact, sclera anicteric, conjunctiva clear. No lid lag. EARS, NOSE, THROAT: Ears normal, nares patent, oropharynx clear without exudates. Moist mucous membranes. NECK: Wearing soft collar. LUNGS: Breath sounds equal, clear to auscultation bilaterally. No wheezes, and no crackles. No accessory muscle use. HEART: Regular rate and rhythm, normal S1 and S2 without murmur, rub or gallop. ABDOMEN: Soft, nontender, not distended, normoactive bowel sounds, no guarding, no rebound, no masses. No hepatomegaly or splenomegaly. MUSCULOSKELETAL: Normal range of motion at all joints. No bony deformities or tenderness. No CVA tenderness. UPPER EXTREMITIES: 2+ pulses, warm, well-perfused. No cyanosis. No clubbing. No peripheral edema. LOWER EXTREMITIES: 2+ pulses, warm, well-perfused. No calf tenderness. No peripheral edema. NEUROLOGICAL: CN intact, 3+/5 strenght in UE, B/l lower extremities with 5/5 muscle strength, sensory symetric to LT in UE and LE, gait deferrred PSYCHIATRIC: Cooperative. Good eye contact. Appropriate mood and affect. SKIN: Warm, dry, normal turgor, no rashes or lesions noted, normal capillary refill. CBCD WBC 4.0 K/mm3 (4.0-10.0) D 11/23/17 08:00 RBC 3.89 M/mm3 (3.60-5.2) 11/23/17 08:00 Hgb 12.4 GM/dL (10.7-15.3) 11/23/17 08:00 Hct 36.4 % (32.4-45.2) 11/23/17 08:00 MCV 93.5 fl (80-96) 11/23/17 08:00 MCHC 34.0 g/dl (32.0-36.0) 11/23/17 08:00 RDW 14.4 % (11.6-15.6) 11/23/17 08:00 Plt Count 214 K/MM3 (134-434) 11/23/17 08:00 MPV 8.0 fl (7.5-11.1) 11/23/17 08:00 CMP Sodium 142 mmol/L (136-145) 11/23/17 08:00 Potassium 4.0 mmol/L (3.5-5.1) 11/23/17 08:00 Chloride 108 mmol/L (98-107) H 11/23/17 08:00 Carbon Dioxide 28 mmol/L (21-32) 11/23/17 08:00 Anion Gap 6 (8-16) L 11/23/17 08:00 BUN 20 mg/dL (7-18) H 11/23/17 08:00 Creatinine 1.1 mg/dL (0.55-1.02) H 11/23/17 08:00 Creat Clearance w eGFR 49.85 (>60) 11/23/17 08:00 Calcium 8.5 mg/dL (8.5-10.1) 11/23/17 08:00 Total Bilirubin 1.0 mg/dL (0.2-1.0) D 11/23/17 08:00 AST 14 U/L (15-37) L 11/23/17 08:00 ALT 19 U/L (12-78) 11/23/17 08:00 Alkaline Phosphatase 55 U/L (45-117) 11/23/17 08:00 Total Protein 6.6 g/dl (6.4-8.2) 11/23/17 08:00 Albumin 3.6 g/dl (3.4-5.0) 11/23/17 08:00 Assessment: 67 year old female with PMHx of HTN, hypothyroidism, 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 The patient reports a history of cervical spine surgery, most recent fusion 17 months ago. She reported over the past 2 months the pain in the neck has worsened and is accompanied by spasms and pain shooting down into her shoulders. About 3.5 weeks ago, the patient developed a frontal headache with temporal pain. She went to the ED at [facility] where they found she had an elevated BP and performed a head CT with showed a "normal brain". The patient saw Dr. Tovar who did further imaging of her neck and stated worsening status and will need to perform surgery on Saturday 11/25. The patient arrived in the ED for ongoing management and possible surgical intervention. Patient to have medical clearance. Her ASA has been stopped. Regarding surgery, she does have a baseline risk of infarct as well as risk for bleed due to her prior history, no further risk noted. These to be weighed by surgeon in evaluating risk/benefit, defer to patient and surgeon regarding further surgical intervention. Pain mgmt as tolerated. Medical pre-op evaluation ongoing. Follow up with Orthopedist regarding possible surgical intervention. No further rec'd at this time.
[2017-11-23] MEDS: FLUTICASONE PROP 0.05% 16 GM NASAL SPRAY NS SCH ×2 (12:35→12:54)
--- NOTE | 2017-11-23 18:38 | CON.CARD ---
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 Patient reports chronic nonexertional palpitations and sees a tool grinder operator surface in [place] and underwent echo and arrhythmia monitors without sig results, tool grinder operator surface previously saw her prior to previous c-spine surgery in consultation. She reports atypical non-exertional chest pain, but denies dyspnea , near or true syncope, palpitations, orthopnea, PND or LE edema. ASA since held. - History Source History Provided By: Patient - Past Medical History ...LMP: 08/23/04 ...: No - Alcohol/Substance Use Hx Alcohol Use: No - Smoking History Smoking history: Never smoked Home Medications - Allergies Allergies/Adverse Reactions: Allergies Allergy/AdvReac Type Severity Reaction Status Date / Time codeine Allergy Verified 11/22/17 13:30 diphenhydramine Allergy Verified 11/22/17 13:30 [From Benadryl Allergy] fentanyl Allergy Verified 11/22/17 20:03 hydromorphone Allergy Verified 11/22/17 13:30 ibuprofen [From Motrin] Allergy Verified 11/22/17 13:30 ketamine Allergy Verified 11/22/17 13:30 metoclopramide [From Reglan] Allergy Verified 11/22/17 13:30 morphine Allergy Verified 11/22/17 13:30 oxycodone [From Percocet] Allergy Verified 11/22/17 13:30 Penicillins Allergy Verified 11/22/17 13:30 prednisone Allergy Verified 11/22/17 13:30 sulfur [From Sulfur-8] Allergy Verified 11/22/17 13:30 tizanidine Allergy Verified 11/22/17 13:30 - Home Medications Home Medications: Ambulatory Orders Aspirin [ASA -] 81 mg PO DAILY 11/22/17 Famotidine [Pepcid -] 40 mg PO DAILY 11/22/17 Fluticasone Prop 0.05% Nasal [Flonase -] 1 - 2 spray NS DAILY 11/22/17 LORazepam [Ativan] 0.5 mg PO DAILY 11/22/17 Levothyroxine [Synthroid -] 50 mcg PO DAILY 11/22/17 Lisinopril [Prinivil -] 40 mg PO DAILY 11/22/17 Metoprolol Tartrate 25 mg PO DAILY 11/22/17 Montelukast Sodium [Singulair] 10 mg PO DAILY 11/22/17 Sertraline HCl [Zoloft] 25 mg PO DAILY 11/22/17 Review of Systems - Review of Systems Neck: reports: Pain on Movement Vital Signs: Vital Signs Temperature 98.5 F 11/23/17 18:00 Pulse Rate 62 11/23/17 18:00 Respiratory Rate 20 11/23/17 18:00 Blood Pressure 147/83 11/23/17 18:00 O2 Sat by Pulse Oximetry (%) 99 11/23/17 09:00 Constitutional: Yes: No Distress, Calm, Thin Neck: Yes: Supple Respiratory: Yes: Regular, CTA Bilaterally Gastrointestinal: Yes: Normal Bowel Sounds, Soft Cardiovascular: Yes: Regular Rate and Rhythm JVD: No Carotid Bruit: No Heart Sounds: Yes: S1, S2 Edema: No - Other Data Labs, Other Data: CBC, BMP 11/23/17 08:00 11/23/17 08:00 INR, PTT INR 1.00 (0.82-1.09) 11/22/17 14:25 NSR @ 60 Imaging - Results Chest X-ray: Report Reviewed (NAD) Problem List - Problems (1) Intermittent palpitations Code(s): R00.2 - PALPITATIONS (2) Hypothyroidism Code(s): E03.9 - HYPOTHYROIDISM, UNSPECIFIED (3) Hypertension Code(s): I10 - ESSENTIAL (PRIMARY) HYPERTENSION Qualifiers: Hypertension type: essential hypertension Qualified Code(s): I10 - Essential (primary) hypertension (4) Pre-operative cardiovascular examination Code(s): Z01.810 - ENCOUNTER FOR PREPROCEDURAL CARDIOVASCULAR EXAMINATION (5) Myelopathy Code(s): G95.9 - DISEASE OF SPINAL CORD, UNSPECIFIED Assessment/Plan 1. Pre-operative cardiovascular evaluation 2. Planned for c-spine surgery 3. HTN 4. Hypothyroidism 5. Chronic palpitations, h/o anxiety d/o 6. H/o stroke post TPA, bleed and evacuation P:1. Given absence of sxs of acute coronary syndrome, decompensated CHF or malignant arrhythmia, may proceed with c-spine surgery from CV-standpoint without further testing 2. Continue lisinopril 40 qd, Toprol XL 25 qd, hold ASA 81 qd tami-op 3. F/u outpatient cardiology records Dr. Hiwot Yeh ([phone]) on Saturday 4. Thank you for consultative opportunity
[2017-11-23] MEDS ORDERED: GLYCERIN 1 RECTAL SUPPOSITORY, ADULT PR ONE (21:14)
[2017-11-23] MEDS: MONTELUKAST NA 10 MG TABLET PO SCH (21:49)
[2017-11-23] MEDS: RANITIDINE HCL 150 MG TABLET (FP) PO SCH (21:49)
[2017-11-24] MEDS ORDERED: PT OWN MED DRAWER 7, Y5N ONE (00:26)
[2017-11-24] MEDS: LEVOTHYROXINE NA 50 MCG TABLET (FP) PO SCH (06:49)
[2017-11-24] MEDS: metoPROLOL SUCCINATE 25 MG TAB.SR.24H (FP) PO SCH (09:37)
[2017-11-24] MEDS: LISINOPRIL 20 MG TABLET (FP) PO SCH (09:37)
[2017-11-24] MEDS: SERTRALINE HCL 25 MG TABLET (FP) PO SCH (09:38)
--- NOTE | 2017-11-24 12:20 | PN ---
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 The patient reports a history of cervical spine surgery, most recent fusion 17 months ago. She reported over the past 2 months the pain in the neck has worsened and is accompanied by spasms and pain shooting down into her shoulders. About 3.5 weeks ago, the patient developed a frontal headache with temporal pain. She went to the ED at [facility] where they found she had an elevated BP and performed a head CT with showed a "normal brain". The patient saw Dr. Tovar who did further imaging of her neck and stated worsening status and will need to perform surgery on Saturday 11/25. The patient arrived in the ED for ongoing management and possible surgical intervention. Patient to have medical clearance. Her ASA has been stopped. Regarding surgery, she does have a baseline risk of infarct as well as risk for bleed due to her prior history, no further risk noted. Plan for surgery deferred to surgeon/patient. No new complaints overnight. Still has tension type b/l temporal headaches and going cervicalgia and cervical radiculopathy. Active Medications Docusate Sodium (Colace -) 100 mg PO Q8H PRN PRN Reason: CONSTIPATION Levothyroxine Sodium (Synthroid -) 50 mcg PO ACBK [facility] Last Admin: 11/24/17 06:49 Dose: 50 mcg Lisinopril (Prinivil) 40 mg PO DAILY [facility] Last Admin: 11/24/17 09:37 Dose: 40 mg Lorazepam (Ativan -) 0.5 mg PO DAILY PRN PRN Reason: ANXIETY Metoprolol Succinate (Toprol Xl -) 25 mg PO DAILY [facility] Last Admin: 11/24/17 09:37 Dose: 25 mg Montelukast Sodium (Singulair -) 10 mg PO HS [facility] Last Admin: 11/23/17 21:49 Dose: 10 mg Ranitidine HCl (Zantac -) 300 mg PO HS [facility] Last Admin: 11/23/17 21:49 Dose: 300 mg Sertraline HCl (Zoloft -) 25 mg PO DAILY [facility] Last Admin: 11/24/17 09:38 Dose: 25 mg PHYSICAL EXAMINATION Vital Signs Temperature 98.8 F 11/24/17 09:41 Pulse Rate 79 11/24/17 09:41 Respiratory Rate 20 11/24/17 09:41 Blood Pressure 151/78 11/24/17 09:41 O2 Sat by Pulse Oximetry (%) 99 11/24/17 09:00 GENERAL: Awake, alert, and fully oriented, in no acute distress. HEAD: Normal with no signs of trauma. EYES: Pupils equal, round and reactive to light, extraocular movements intact, sclera anicteric, conjunctiva clear. No lid lag. EARS, NOSE, THROAT: Ears normal, nares patent, oropharynx clear without exudates. Moist mucous membranes. NECK: Wearing soft collar. LUNGS: Breath sounds equal, clear to auscultation bilaterally. No wheezes, and no crackles. No accessory muscle use. HEART: Regular rate and rhythm, normal S1 and S2 without murmur, rub or gallop. ABDOMEN: Soft, nontender, not distended, normoactive bowel sounds, no guarding, no rebound, no masses. No hepatomegaly or splenomegaly. MUSCULOSKELETAL: Normal range of motion at all joints. No bony deformities or tenderness. No CVA tenderness. UPPER EXTREMITIES: 2+ pulses, warm, well-perfused. No cyanosis. No clubbing. No peripheral edema. LOWER EXTREMITIES: 2+ pulses, warm, well-perfused. No calf tenderness. No peripheral edema. NEUROLOGICAL: CN intact, 3+/5 strenght in UE, B/l lower extremities with 5/5 muscle strength, sensory symetric to LT in UE and LE, gait deferrred PSYCHIATRIC: Cooperative. Good eye contact. Appropriate mood and affect. SKIN: Warm, dry, normal turgor, no rashes or lesions noted, normal capillary refill. CBCD WBC 4.0 K/mm3 (4.0-10.0) D 11/23/17 08:00 RBC 3.89 M/mm3 (3.60-5.2) 11/23/17 08:00 Hgb 12.4 GM/dL (10.7-15.3) 11/23/17 08:00 Hct 36.4 % (32.4-45.2) 11/23/17 08:00 MCV 93.5 fl (80-96) 11/23/17 08:00 MCHC 34.0 g/dl (32.0-36.0) 11/23/17 08:00 RDW 14.4 % (11.6-15.6) 11/23/17 08:00 Plt Count 214 K/MM3 (134-434) 11/23/17 08:00 MPV 8.0 fl (7.5-11.1) 11/23/17 08:00 CMP Sodium 142 mmol/L (136-145) 11/23/17 08:00 Potassium 4.0 mmol/L (3.5-5.1) 11/23/17 08:00 Chloride 108 mmol/L (98-107) H 11/23/17 08:00 Carbon Dioxide 28 mmol/L (21-32) 11/23/17 08:00 Anion Gap 6 (8-16) L 11/23/17 08:00 BUN 20 mg/dL (7-18) H 11/23/17 08:00 Creatinine 1.1 mg/dL (0.55-1.02) H 11/23/17 08:00 Creat Clearance w eGFR 49.85 (>60) 11/23/17 08:00 Calcium 8.5 mg/dL (8.5-10.1) 11/23/17 08:00 Total Bilirubin 1.0 mg/dL (0.2-1.0) D 11/23/17 08:00 AST 14 U/L (15-37) L 11/23/17 08:00 ALT 19 U/L (12-78) 11/23/17 08:00 Alkaline Phosphatase 55 U/L (45-117) 11/23/17 08:00 Total Protein 6.6 g/dl (6.4-8.2) 11/23/17 08:00 Albumin 3.6 g/dl (3.4-5.0) 11/23/17 08:00 Assessment: 67 year old female with PMHx of HTN, hypothyroidism, 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 The patient reports a history of cervical spine surgery, most recent fusion 17 months ago. She reported over the past 2 months the pain in the neck has worsened and is accompanied by spasms and pain shooting down into her shoulders. About 3.5 weeks ago, the patient developed a frontal headache with temporal pain. She went to the ED at [facility] where they found she had an elevated BP and performed a head CT with showed a "normal brain". The patient saw Dr. Tovar who did further imaging of her neck and stated worsening status and will need to perform surgery on Saturday 11/25. The patient arrived in the ED for ongoing management and possible surgical intervention. Patient to have medical clearance. Her ASA has been stopped. Regarding surgery, she does have a baseline risk of infarct as well as risk for bleed due to her prior history, no further risk noted. Defer to patient and surgeon regarding further surgical intervention. Pain mgmt as tolerated. Medical pre-op evaluation ongoing. No further rec'd at this time.
--- NOTE | 2017-11-24 13:15 | PN ---
Progress Note (short form) - Note Progress Note: Subjective: The patient was seen and examined at the bedside, she has no complaints at this time Current Medications Generic Name Dose Route Start Last Admin Trade Name Gary PRN Reason Stop Dose Admin Acetaminophen 650 mg 11/24/17 13:20 Tylenol - PO Q4H PRN PAIN LEVEL 1-5 Docusate Sodium 100 mg 11/23/17 09:39 Colace - PO Q8H PRN CONSTIPATION Levothyroxine Sodium 50 mcg 11/23/17 07:00 11/24/17 06:49 Synthroid - PO 50 mcg ACBK PACO Administration Lisinopril 40 mg 11/23/17 10:00 11/24/17 09:37 Prinivil PO 40 mg DAILY PACO Administration Lorazepam 0.5 mg 11/23/17 09:39 Ativan - PO DAILY PRN ANXIETY Metoprolol Succinate 25 mg 11/24/17 10:00 11/24/17 09:37 Toprol Xl - PO 25 mg DAILY PACO Administration Montelukast Sodium 10 mg 11/23/17 22:00 11/23/17 21:49 Singulair - PO 10 mg HS PACO Administration Ranitidine HCl 300 mg 11/22/17 22:00 11/23/17 21:49 Zantac - PO 300 mg HS PACO Administration Sertraline HCl 25 mg 11/23/17 10:00 11/24/17 09:38 Zoloft - PO 25 mg DAILY PACO Administration Objective: Vital Signs Period Temp Pulse Resp BP Sys/Dominguez Pulse Ox Last 24 Hr 97.6 F-98.9 F 59-79 18-20 132-151/69-83 99-99 Physical Exam: General: NAD, A&Ox3 Lungs: CTA bilaterally Heart: RRR, S1S2 Abd: Soft, non-tender, non-distended. Normoactive bowel sounds Ext: B/l upper extremities with decreased strength, 3/5. B/l lower extremities 5 /5 strength Neuro: Slight left mouth droop (daughter states patient has had this "forever") CBCD WBC 4.0 K/mm3 (4.0-10.0) D 11/23/17 08:00 RBC 3.89 M/mm3 (3.60-5.2) 11/23/17 08:00 Hgb 12.4 GM/dL (10.7-15.3) 11/23/17 08:00 Hct 36.4 % (32.4-45.2) 11/23/17 08:00 MCV 93.5 fl (80-96) 11/23/17 08:00 MCHC 34.0 g/dl (32.0-36.0) 11/23/17 08:00 RDW 14.4 % (11.6-15.6) 11/23/17 08:00 Plt Count 214 K/MM3 (134-434) 11/23/17 08:00 MPV 8.0 fl (7.5-11.1) 11/23/17 08:00 CMP Sodium 142 mmol/L (136-145) 11/23/17 08:00 Potassium 4.0 mmol/L (3.5-5.1) 11/23/17 08:00 Chloride 108 mmol/L (98-107) H 11/23/17 08:00 Carbon Dioxide 28 mmol/L (21-32) 11/23/17 08:00 Anion Gap 6 (8-16) L 11/23/17 08:00 BUN 20 mg/dL (7-18) H 11/23/17 08:00 Creatinine 1.1 mg/dL (0.55-1.02) H 11/23/17 08:00 Creat Clearance w eGFR 49.85 (>60) 11/23/17 08:00 Random Glucose 80 mg/dL (74-106) 11/23/17 08:00 Calcium 8.5 mg/dL (8.5-10.1) 11/23/17 08:00 Total Bilirubin 1.0 mg/dL (0.2-1.0) D 11/23/17 08:00 AST 14 U/L (15-37) L 11/23/17 08:00 ALT 19 U/L (12-78) 11/23/17 08:00 Alkaline Phosphatase 55 U/L (45-117) 11/23/17 08:00 Total Protein 6.6 g/dl (6.4-8.2) 11/23/17 08:00 Albumin 3.6 g/dl (3.4-5.0) 11/23/17 08:00 CARDIAC ENZYMES Creatine Kinase 41 IU/L (26-192) 11/22/17 14:25 Troponin I < 0.02 ng/ml (0.00-0.05) 11/22/17 14:25 Assessment: This is a 67 year old female with PMHx of HTN, hypothyroidism, CVA ( s/p TPA with hemorrhagic conversion requiring evacuation/surgery), multiple back surgeries, who presented to the ED with progressively worsening headache, neck pain radiating to her shoulders and down her arms. Plan: 1) Worsening neck pain - Patient has recent imaging of neck on a disc, does not have the report. She states worsening bone growth into cervical spine and will be having surgery with Dr. Tovar on Saturday - Pre-op clearance - F/u Dr. Tovar consult for surgery details 2) HTN - Continue Lisinopril - Continue Toprol XL 3) Hypothyroidism - Continue Synthroid 4) Palpitations - Patient reports about 1 month ago she had a holter monitor placed with her chinese herbalist - Attempt to call office to retrieve records Dr. Hiwot Yeh ([phone]) - Appreciate surgery consult 5) Hx of CVA - 2.5 years ago, received TPA, had hemorrhagic conversion and had evacuation surgery - Appreciate neurology consult 6) F/E/N: - Sodium controlled diet - Monitor electrolytes 7) Prophylaxis: - SCDs bilaterally - No chemical DVT prophylaxis until evaluated by neuro (hx of CVA with hemorrhagic conversion after tpa) - Deena 8) Dispo: - Requires continued inpatient care CODE STATUS: FULL CODE Visit type - Emergency Visit Emergency Visit: Yes ED Registration Date: 11/22/17 Care time: The patient presented to the Emergency Department on the above date and was hospitalized for further evaluation of their emergent condition. - New Patient This patient is new to me today: No - Critical Care Critical Care patient: No
[2017-11-24] MEDS ORDERED: ACETAMINOPHEN 325 MG TABLET (FP) PO PRN (13:20)
--- NOTE | 2017-11-24 14:50 | PN ---
Progress Note, Physician History of Present Illness: Await c-spine surgery, no current chest pain or palpitations. - Current Medication List Current Medications: Active Medications Acetaminophen (Tylenol -) 650 mg PO Q4H PRN PRN Reason: PAIN LEVEL 1-5 Docusate Sodium (Colace -) 100 mg PO Q8H PRN PRN Reason: CONSTIPATION Levothyroxine Sodium (Synthroid -) 50 mcg PO ACBK [facility] Last Admin: 11/24/17 06:49 Dose: 50 mcg Lisinopril (Prinivil) 40 mg PO DAILY [facility] Last Admin: 11/24/17 09:37 Dose: 40 mg Lorazepam (Ativan -) 0.5 mg PO DAILY PRN PRN Reason: ANXIETY Metoprolol Succinate (Toprol Xl -) 25 mg PO DAILY [facility] Last Admin: 11/24/17 09:37 Dose: 25 mg Montelukast Sodium (Singulair -) 10 mg PO [facility] Last Admin: 11/23/17 21:49 Dose: 10 mg Ranitidine HCl (Zantac -) 300 mg PO [facility] Last Admin: 11/23/17 21:49 Dose: 300 mg Sertraline HCl (Zoloft -) 25 mg PO DAILY [facility] Last Admin: 11/24/17 09:38 Dose: 25 mg - Objective Vital Signs: Vital Signs Temperature 98.5 F 11/24/17 14:19 Pulse Rate 65 11/24/17 14:19 Respiratory Rate 19 11/24/17 14:19 Blood Pressure 139/79 11/24/17 14:19 O2 Sat by Pulse Oximetry (%) 99 11/24/17 09:00 Constitutional: Yes: No Distress, Calm Neck: Yes: Supple Cardiovascular: Yes: Regular Rate and Rhythm Respiratory: Yes: Regular, CTA Bilaterally Gastrointestinal: Yes: Normal Bowel Sounds, Soft Edema: No Labs: CBC, BMP 11/23/17 08:00 11/23/17 08:00 INR, PTT INR 1.00 (0.82-1.09) 11/22/17 14:25 Problem List - Problems (1) Intermittent palpitations Code(s): R00.2 - PALPITATIONS (2) Hypothyroidism Code(s): E03.9 - HYPOTHYROIDISM, UNSPECIFIED (3) Hypertension Code(s): I10 - ESSENTIAL (PRIMARY) HYPERTENSION Qualifiers: Hypertension type: essential hypertension Qualified Code(s): I10 - Essential (primary) hypertension (4) Pre-operative cardiovascular examination Code(s): Z01.810 - ENCOUNTER FOR PREPROCEDURAL CARDIOVASCULAR EXAMINATION (5) Myelopathy Code(s): G95.9 - DISEASE OF SPINAL CORD, UNSPECIFIED Assessment/Plan 1. Pre-operative cardiovascular evaluation 2. Planned for c-spine surgery 3. HTN 4. Hypothyroidism 5. Chronic palpitations, h/o anxiety d/o 6. H/o stroke post TPA, bleed and evacuation P:1. Given absence of sxs of acute coronary syndrome, decompensated CHF or malignant arrhythmia, may proceed with c-spine surgery from CV-standpoint without further testing 2. Continue lisinopril 40 qd, Toprol XL 25 qd, hold ASA 81 qd tami-op 3. F/u outpatient cardiology records Dr. Hiwot Yeh ([phone]) on Saturday
[2017-11-24] MEDS: FAMOTIDINE 40 MG PO SCH (17:12)
[2017-11-24] MEDS ORDERED: BISACODYL 10 MG SUPP.RECT RC ONE (20:45)
[2017-11-24] MEDS ORDERED: BENZOCAINE 28 GM HEMORRHOIDAL OINTMENT PR ONE (20:45)
[2017-11-24] MEDS: MONTELUKAST NA 10 MG TABLET PO SCH (21:42)
[2017-11-25] MEDS: LEVOTHYROXINE NA 50 MCG TABLET (FP) PO SCH (06:13)
[2017-11-25] MEDS ORDERED: DEXTROSE 5%-NORMAL SALINE 1,000 ML IV SCH ×2 (08:45→14:46)
[2017-11-25] MEDS ORDERED: MIDAZOLAM HCL 2 MG/2 ML SINGLE DOSE VIAL ONE ×2 (09:19→14:15)
[2017-11-25] MEDS ORDERED: VANCOMYCIN 1,000 MG VIAL (RESTRICTED TO ID ONLY) ONE (09:19)
[2017-11-25] MEDS ORDERED: fentaNYL CITRATE 250 MCG/5 ML VIAL ONE (09:19)
--- NOTE | 2017-11-25 09:28 | PN ---
Progress Note (short form) - Note Progress Note: Subjective: The patient was seen and examined at the bedside, she has no complaints at this time Current Medications Generic Name Dose Route Start Last Admin Trade Name Gary PRN Reason Stop Dose Admin Acetaminophen 650 mg 11/24/17 13:20 11/24/17 23:23 Tylenol - PO 650 mg Q4H PRN Administration PAIN LEVEL 1-5 Docusate Sodium 100 mg 11/23/17 09:39 11/24/17 21:42 Colace - PO 100 mg Q8H PRN Administration CONSTIPATION Dextrose/Sodium Chloride 1,000 mls @ 83 mls/hr 11/25/17 08:45 11/25/17 09:47 D5-Ns - IV Not Given ASDIR PACO Levothyroxine Sodium 50 mcg 11/23/17 07:00 11/25/17 06:13 Synthroid - PO 50 mcg ACBK PACO Administration Lisinopril 40 mg 11/23/17 10:00 11/25/17 09:48 Prinivil PO Not Given DAILY PACO Lorazepam 0.5 mg 11/23/17 09:39 11/25/17 05:02 Ativan - PO 0.5 mg DAILY PRN Administration ANXIETY Metoprolol Succinate 25 mg 11/24/17 10:00 11/25/17 09:48 Toprol Xl - PO Not Given DAILY PACO Montelukast Sodium 10 mg 11/23/17 22:00 11/24/17 21:42 Singulair - PO 10 mg HS PACO Administration Patient's Own 1 each 11/24/17 17:15 11/25/17 09:48 Medication (Non- PO Not Given Formulary)Famotidine DAILY PACO 40mg Tab Sertraline HCl 25 mg 11/23/17 10:00 11/25/17 09:48 Zoloft - PO Not Given DAILY PACO Objective: Vital Signs Period Temp Pulse Resp BP Sys/Dominguez Pulse Ox Last 24 Hr 97.4 F-98.5 F 53-97 19-20 109-157/58-98 96-96 Physical Exam: General: NAD, A&Ox3 Lungs: CTA bilaterally Heart: RRR, S1S2 Abd: Soft, non-tender, non-distended. Normoactive bowel sounds Ext: B/l upper extremities with decreased strength, 3/5. B/l lower extremities 5 /5 strength Neuro: Slight left mouth droop (daughter states patient has had this "forever") CBCD WBC 4.0 K/mm3 (4.0-10.0) D 11/23/17 08:00 RBC 3.89 M/mm3 (3.60-5.2) 11/23/17 08:00 Hgb 12.4 GM/dL (10.7-15.3) 11/23/17 08:00 Hct 36.4 % (32.4-45.2) 11/23/17 08:00 MCV 93.5 fl (80-96) 11/23/17 08:00 MCHC 34.0 g/dl (32.0-36.0) 11/23/17 08:00 RDW 14.4 % (11.6-15.6) 11/23/17 08:00 Plt Count 214 K/MM3 (134-434) 11/23/17 08:00 MPV 8.0 fl (7.5-11.1) 11/23/17 08:00 CMP Sodium 142 mmol/L (136-145) 11/23/17 08:00 Potassium 4.0 mmol/L (3.5-5.1) 11/23/17 08:00 Chloride 108 mmol/L (98-107) H 11/23/17 08:00 Carbon Dioxide 28 mmol/L (21-32) 11/23/17 08:00 Anion Gap 6 (8-16) L 11/23/17 08:00 BUN 20 mg/dL (7-18) H 11/23/17 08:00 Creatinine 1.1 mg/dL (0.55-1.02) H 11/23/17 08:00 Creat Clearance w eGFR 49.85 (>60) 11/23/17 08:00 Random Glucose 80 mg/dL (74-106) 11/23/17 08:00 Calcium 8.5 mg/dL (8.5-10.1) 11/23/17 08:00 Total Bilirubin 1.0 mg/dL (0.2-1.0) D 11/23/17 08:00 AST 14 U/L (15-37) L 11/23/17 08:00 ALT 19 U/L (12-78) 11/23/17 08:00 Alkaline Phosphatase 55 U/L (45-117) 11/23/17 08:00 Total Protein 6.6 g/dl (6.4-8.2) 11/23/17 08:00 Albumin 3.6 g/dl (3.4-5.0) 11/23/17 08:00 CARDIAC ENZYMES Creatine Kinase 41 IU/L (26-192) 11/22/17 14:25 Troponin I < 0.02 ng/ml (0.00-0.05) 11/22/17 14:25 Assessment: This is a 67 year old female with PMHx of HTN, hypothyroidism, CVA ( s/p TPA with hemorrhagic conversion requiring evacuation/surgery), multiple back surgeries, who presented to the ED with progressively worsening headache, neck pain radiating to her shoulders and down her arms. Plan: 1) Worsening neck pain - Patient has recent imaging of neck on a disc, does not have the report. She states worsening bone growth into cervical spine - For surgery today - F/u Dr. Tovar consult for surgery details 2) HTN - Continue Lisinopril - Continue Toprol XL 3) Hypothyroidism - Continue Synthroid 4) Palpitations - Patient reports about 1 month ago she had a holter monitor placed with her machine stemmer - Attempt to call office to retrieve records Dr. Hiwot Yeh ([phone]) - Appreciate surgery consult 5) Hx of CVA - 2.5 years ago, received TPA, had hemorrhagic conversion and had evacuation surgery - Appreciate neurology consult 6) F/E/N: - NPO for surgery - Monitor electrolytes 7) Prophylaxis: - SCDs bilaterally - No chemical DVT prophylaxis for surgery today - [place] 8) Dispo: - Requires continued inpatient care CODE STATUS: FULL CODE Visit type - Emergency Visit Emergency Visit: Yes ED Registration Date: 11/22/17 Care time: The patient presented to the Emergency Department on the above date and was hospitalized for further evaluation of their emergent condition. - New Patient This patient is new to me today: No - Critical Care Critical Care patient: No
[2017-11-25] MEDS ORDERED: SCOPOLAMINE HYDROBROMIDE 1 PATCH PATCH.TD72 ONE (09:30)
[2017-11-25] MEDS ORDERED: VANCOMYCIN 1,000 MG VIAL (RESTRICTED TO ID ONLY) IVPB ONE (09:30)
[2017-11-25] MEDS: SERTRALINE HCL 25 MG TABLET (FP) PO SCH (09:48)
[2017-11-25] MEDS: FAMOTIDINE 40 MG PO SCH (09:48)
[2017-11-25] MEDS: LISINOPRIL 20 MG TABLET (FP) PO SCH (09:48)
[2017-11-25] MEDS: metoPROLOL SUCCINATE 25 MG TAB.SR.24H (FP) PO SCH (09:48)
[2017-11-25] MEDS ORDERED: ePHEDrine SULFATE 50 MG/1 ML AMPULE ONE (10:09)
[2017-11-25] MEDS ORDERED: ceFAZolin SODIUM 1 GM VIAL IVPB ONE (10:30)
[2017-11-25] MEDS ORDERED: PROPOFOL 20 ML ONE ×11 (11:02→13:01)
[2017-11-25] MEDS ORDERED: ROCURONIUM BROMIDE 50 MG/5 ML VIAL ONE (11:22)
[2017-11-25] MEDS ORDERED: THROMBIN (BOVINE) 5,000 UNIT VIAL TP ONE (11:31)
[2017-11-25] MEDS ORDERED: NEOSTIGMINE METHYLSULFATE 0.5 MG/ML - 10 ML MDV ONE (11:45)
[2017-11-25] MEDS ORDERED: GLYCOPYRROLATE 0.2 MG/1 ML VIAL ONE (11:45)
[2017-11-25] MEDS ORDERED: LABETALOL HCL 5 MG/1 ML (100MG/20 ML VIAL) ONE (12:59)
--- NOTE | 2017-11-25 14:12 | PN ---
Progress Note (short form) - Note Progress Note: 67F w/acute neurological decline due to cervical spinal stenosis now s/p MOLLY, C5 -C6 corpectomies, C4 & C7 partial corpectomies, C4-C7 ACDF POD #0. -Admit to ICU x 24 hrs. post-op for airway observation. -Decadron 10mg IV q12h x 2 doses post-op. -Pain control: per anaesthesia team. -Incentive spirometry. -PT/OT/Rehab, OOB. -WBAT B/L UE & LE. -Clear liquid diet, advance as tolerated. -d/c Cisse catheter at midnight & f/u TOV. -Care per primary medical team. -Discharge planning. -Will follow. Isak Tovar MD (Orthopaedic Surgery).
--- NOTE | 2017-11-25 14:16 | OP ---
Operative Note - Note: Operative Date: 11/25/17 Pre-Operative Diagnosis: 1. Acute neurological decline. 2. Cervical spinal stenosis Operation: 1. MOLLY C5-C6. 2. C4-5, C6-7 discectomies. 3. C5 & C6 corpectomies. 4. C4, C7 partial corpectomies. 5. C4-C7 ACDF Post-Operative Diagnosis: Same as Pre-op Surgeon: Isak Tovar Cardio Tech: Aldo Tovar Anesthesiologist/HR BUSINESS PARTNER CONSULTANT: Davie Price Anesthesia: General Specimens Removed: Hardware, disk material Estimated Blood Loss (mls): 15 Operative Report Dictated: Yes
[2017-11-25] MEDS ORDERED: ONDANSETRON 4 MG/2 ML VIAL IVPUSH PRN ×2 (14:19→17:34)
[2017-11-25] MEDS ORDERED: oxyCODONE HCL 5 MG TABLET PO PRN ×2 (14:19)
[2017-11-25] MEDS ORDERED: DOCUSATE SODIUM 100 MG CAPSULE (FP) PO PRN (14:46)
[2017-11-25] MEDS ORDERED: ACETAMINOPHEN 325 MG TABLET (FP) PO PRN (14:46)
[2017-11-25] MEDS ORDERED: LORazepam 0.5 MG TABLET PO PRN (14:46)
[2017-11-25] MEDS ORDERED: hydrALAZINE HCL 20 MG/ML VIAL ONE (16:27)
[2017-11-25] MEDS ORDERED: hydrALAZINE HCL 20 MG/ML VIAL IVPUSH ONE (16:32)
[2017-11-25] MEDS ORDERED: LACTATED RINGERS SOLUTION 1,000 ML IV SCH (17:30)
[2017-11-25] MEDS ORDERED: PROMETHAZINE HCL 25 MG/1 ML VIAL IVPB PRN (17:34)
[2017-11-25] MEDS ORDERED: DEXTROSE 5%-WATER - 50 ML IVPB ONE (17:35)
[2017-11-25] MEDS ORDERED: ceFAZolin SODIUM 1 GM VIAL ONE (17:35)
[2017-11-25] MEDS: CEFAZOLIN 1 GM in DEXTROSE 5%-WATER - 50 ML IVPB SCH (17:39)
--- NOTE | 2017-11-25 18:56 | OP ---
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 OPERATION PERFORMED: 1. Removal of hardware, anterior spine. 2. Inspection of fusion mass. 3. Corpectomy, C5 and C6. 4. Diskectomy, C4-5 and C6-7, partial corpectomy C4, and partial corpectomy C7. 5. Insertion of cage, C4 to C7. 6. Anterior plating, C4 to C7. ANESTHESIA: General. ANTIBIOTICS GIVEN: Kefzol 2 g, vancomycin 1 g, Decadron 10 mg given preop. With the patient correctly identified, brought into the operating room. Imaging was available for intraoperative evaluation. Timeout was called. Prepping was with Betadine scrub solution, wiped off with alcohol; DuraPrep applied. A window drape applied. INDICATIONS: This patient developed increasing cervical spondylogenic myelopathic changes due to this progressive increasingly large lesion behind the cage at C4- 5. Cage was inserted about 3-4 years ago and revealed no significant complications excepting for this ongoing problem of neckache combined with neurological compromise. An oblique incision was made in the lines of Josh at the cricothyroid interval on the contralateral side to the original incision, which was on the right-hand side. The dissection was taken through the platysma. The plane between the viscera and vessels was opened with some difficulty, this because of scarring from previous surgery. The prevertebral fascia was freed with utilization of a Bovie to free the soft tissue off the plate and then a peanut was utilized to develop the space of the anterior surface of the vertebral bodies of C4, the plate area which covered C5 and C6, as well as the vertebral body of C7. All soft tissue freed using the Bovie as a melting tool to free the soft tissue off the anterior structures as outlined above. The plate was removed with no difficulty with the appropriate plate removal equipment. The fusion mass was inspected and found to be actually stable and solid. At that point, the disk of C4-5 and the disk of C6-C7 were resected. The annulus was transected off its bony attachments with a unipolar Bovie. The disk curetted and then using an acorn-tip, bennie-tip malu, 2 channels were cut into the bone bed from the superior endplate of C5 to the inferior endplate of C6 along the left and right gutters. This gave clear, easy access to the bone bed, and this was rongeured out utilizing [place] rongeurs. The endplates were flattened to receive the cage by burring down the remaining endplates at the low end of C4 and the upper end of C7. Partial corpectomies of C4 and C7 were performed, this in order to flatten the endplates appropriately. The entire bone and vertebral body of C4, C5, and C6 were removed, leaving the cage in situ, which was solidly attached. This meant that it was adherent to the dura. We utilized a gentle upward motion by grasping the cage with a [place] and working sharply and firmly under the cage, following the bony contours blindly, the large mass of osseofibrous material was freed off the actual spinal cord. No neuromonitoring problems encountered once the entire corpectomy was performed and the complete removal of the cage and this massive fibro-osseous material which was causing the problem. Once this had been performed, a cage called Pyramesh cage from [employer] was carefully measured in the interspace. The interspace was distracted very slightly with the use of [place] pins and a distractor tool. The cage was filled with a combination of demineralized bone putty combined with autologous bone and gently tamped into exactly perfect snug position with the distraction applied.The cage was seated and noted to be stable after being gently tapped into position . The [place] pins were removed, and the entire cage with ligamentotaxis was solidified in its fixation as the bony ends collapsed onto the cage. A size 49-mm Simplicity plate was seated and fixed with 3 screws 12-mm screws, four with 4-mm screws, and one with a 4.5- mm screw. Solid fixation achieved. The screws were locked with the appropriate locking device. The wounds were thoroughly lavaged. Hemostasis was complete. The wound was dry. Closure was as follows: Platysma and investing layer of fascia in 1 layer with 2-0 Vicryl, skin 3-0 Monocryl with Steri-Strips. No drainage utilized. Operation went extremely well. No complications. MD MONCHO Burdick/[id number] MTDD
[2017-11-25] MEDS: ACETAMINOPHEN 1000 MG/100 ML VIAL (NON FORMULARY) IVPB PRN (20:14)
--- NOTE | 2017-11-25 20:49 | CONSULT ---
Consult Consult Specialty:: Pulm/CCM Reason for Consultation:: s/p spinal stenosis repair - History of Present Illness Chief Complaint: surgical site pain History of Present Illness: 67yow with PMHx of HTN, hypothyroidism,CVA s/p TPA with hemorrhagic conversion requiring evacuation/surgery, spinal stenosis s/p multiple back surgeries most recent about 17months ago, who presented to the ED with progressively worsening headache, neck pain radiating to her shoulders and down her arms. Imaging by Dr Tovar showed calcification on prvious hardware pressing on the dura. She was scheduled for repair. Today she is s/p removal of hardware, C5-C6 corpectomies , C4 and S9uinvihr corpectomies, C4-C7 ACDF. In the OR EBL 75cc, IVF 2L and UOP 600cc. She was transferred to ICU for post-op management. In ICU rec'd slightly lethargic, oriented BP 170-190's/80-90, HR 87, o2 sat 97% , on 2L NC O2. Anterior neck surgical site c/d/i. Tylenol IV given for pain. Pt allergic to opiates and NSAIDS. Metoprol 25mg po given for HTN. - History Source History Provided By: Medical Record - Past Medical History [employer] WORK[employer]: Yes: CVA Cardio/Vascular: Yes: HTN ...LMP: 08/23/04 ...: No Musculoskeletal: Yes: Chronic low back pain Endocrine: Yes: Hypothyroidism - Alcohol/Substance Use Hx Alcohol Use: No - Smoking History Smoking history: Never smoked Home Medications - Allergies Allergies/Adverse Reactions: Allergies Allergy/AdvReac Type Severity Reaction Status Date / Time codeine Allergy Verified 11/22/17 13:30 diphenhydramine Allergy Verified 11/22/17 13:30 [From Benadryl Allergy] fentanyl Allergy Verified 11/22/17 20:03 hydromorphone Allergy Verified 11/22/17 13:30 ibuprofen [From Motrin] Allergy Verified 11/22/17 13:30 ketamine Allergy Verified 11/22/17 13:30 metoclopramide [From Reglan] Allergy Verified 11/22/17 13:30 morphine Allergy Verified 11/22/17 13:30 oxycodone [From Percocet] Allergy Verified 11/22/17 13:30 Penicillins Allergy Verified 11/22/17 13:30 prednisone Allergy Verified 11/22/17 13:30 sulfur [From Sulfur-8] Allergy Verified 11/22/17 13:30 tizanidine Allergy Verified 11/22/17 13:30 - Home Medications Home Medications: Ambulatory Orders Aspirin [ASA -] 81 mg PO DAILY 11/22/17 Famotidine [Pepcid -] 40 mg PO DAILY 11/22/17 Fluticasone Prop 0.05% Nasal [Flonase -] 1 - 2 spray NS DAILY 11/22/17 LORazepam [Ativan] 0.5 mg PO DAILY 11/22/17 Levothyroxine [Synthroid -] 50 mcg PO DAILY 11/22/17 Lisinopril [Prinivil -] 40 mg PO DAILY 11/22/17 Metoprolol Tartrate 25 mg PO DAILY 11/22/17 Montelukast Sodium [Singulair] 10 mg PO DAILY 11/22/17 Sertraline HCl [Zoloft] 25 mg PO DAILY 11/22/17 Family Disease History - Family Disease History Family History: Unremarkable Review of Systems - Review of Systems Constitutional: reports: No Symptoms Eyes: reports: No Symptoms Neck: reports: Pain on Movement, Stiffness Cardiovascular: reports: No Symptoms Respiratory: reports: No Symptoms Gastrointestinal: reports: No Symptoms Genitourinary: reports: No Symptoms Neurological: reports: Dizziness, Headache, Parasthesia Endocrine: reports: No Symptoms Hematology/Lymphatic: reports: No Symptoms Psychiatric: reports: No Symptoms Physical Exam Vital Signs: Vital Signs Temperature 98 F 11/25/17 17:26 Pulse Rate 74 11/25/17 18:00 Respiratory Rate 14 11/25/17 18:00 Blood Pressure 167/73 11/25/17 18:00 O2 Sat by Pulse Oximetry (%) 100 11/25/17 17:49 Constitutional: Yes: Well Nourished, No Distress Eyes: Yes: WNL, PERRL HENT: Yes: Atraumatic, Normocephalic Neck: Yes: Trachea Midline, Other (surgical dressing d/i) Cardiovascular: Yes: Regular Rate and Rhythm, S1, S2 Respiratory: Yes: Regular, CTA Bilaterally, On Nasal O2 Gastrointestinal: Yes: WNL, Soft Renal/: Yes: Og Present Musculoskeletal: Yes: Other (neck pain) Extremities: Yes: WNL Edema: No Peripheral Pulses WNL: Yes Integumentary: Yes: WNL Wound/Incision: Yes: Clean/Dry, Dressing Dry and Intact Neurological: Yes: Alert, Oriented, Cran Nerves II-XII Intact ...Motor Strength: WNL Psychiatric: Yes: Alert, Oriented Labs: CBC, BMP 11/23/17 08:00 11/23/17 08:00 CBC,CMP WBC 4.0 K/mm3 (4.0-10.0) D 11/23/17 08:00 RBC 3.89 M/mm3 (3.60-5.2) 11/23/17 08:00 Hgb 12.4 GM/dL (10.7-15.3) 11/23/17 08:00 Hct 36.4 % (32.4-45.2) 11/23/17 08:00 MCV 93.5 fl (80-96) 11/23/17 08:00 MCH 31.8 pg (25.7-33.7) 11/23/17 08:00 MCHC 34.0 g/dl (32.0-36.0) 11/23/17 08:00 RDW 14.4 % (11.6-15.6) 11/23/17 08:00 Plt Count 214 K/MM3 (134-434) 11/23/17 08:00 MPV 8.0 fl (7.5-11.1) 11/23/17 08:00 Neutrophils % 70.9 % (42.8-82.8) 11/22/17 14:25 Lymphocytes % 17.4 % (8-40) 11/22/17 14:25 Monocytes % 10.9 % (3.8-10.2) H 11/22/17 14:25 Eosinophils % 0.4 % (0-4.5) 11/22/17 14:25 Basophils % 0.4 % (0-2.0) 11/22/17 14:25 Sodium 142 mmol/L (136-145) 11/23/17 08:00 Potassium 4.0 mmol/L (3.5-5.1) 11/23/17 08:00 Chloride 108 mmol/L (98-107) H 11/23/17 08:00 Carbon Dioxide 28 mmol/L (21-32) 11/23/17 08:00 Anion Gap 6 (8-16) L 11/23/17 08:00 BUN 20 mg/dL (7-18) H 11/23/17 08:00 Creatinine 1.1 mg/dL (0.55-1.02) H 11/23/17 08:00 Creat Clearance w eGFR 49.85 (>60) 11/23/17 08:00 Random Glucose 80 mg/dL (74-106) 11/23/17 08:00 Calcium 8.5 mg/dL (8.5-10.1) 11/23/17 08:00 Phosphorus 3.9 mg/dL (2.5-4.9) 11/23/17 08:00 Magnesium 2.4 mg/dL (1.8-2.4) 11/23/17 08:00 Total Bilirubin 1.0 mg/dL (0.2-1.0) D 11/23/17 08:00 AST 14 U/L (15-37) L 11/23/17 08:00 ALT 19 U/L (12-78) 11/23/17 08:00 Alkaline Phosphatase 55 U/L (45-117) 11/23/17 08:00 Creatine Kinase 41 IU/L (26-192) 11/22/17 14:25 Troponin I < 0.02 ng/ml (0.00-0.05) 11/22/17 14:25 Total Protein 6.6 g/dl (6.4-8.2) 11/23/17 08:00 Albumin 3.6 g/dl (3.4-5.0) 11/23/17 08:00 Current Medications Acetaminophen (Tylenol -) 650 mg PO Q4H PRN PRN Reason: PAIN LEVEL 1-5 Acetaminophen (Ofirmev Injection -) 1,000 mg IVPB Q6H PRN PRN Reason: PAIN LEVEL 6-10 Last Admin: 11/25/17 20:14 Dose: 1,000 mg Chlorhexidine Gluconate (Hibiclens For Decolonization -) 1 applic TP HS [facility] Last Admin: 11/25/17 21:11 Dose: 1 applic Dexamethasone Sodium Phosphate (Decadron Injection -) 10 mg IVPUSH BID [facility] Stop: 11/26/17 10:01 Last Admin: 11/25/17 21:11 Dose: 10 mg Docusate Sodium (Colace -) 100 mg PO Q8H PRN PRN Reason: CONSTIPATION Fentanyl (Sublimaze Injection -) 50 mcg IVPUSH [id number] PRN PRN Reason: PAIN-PACU ORDER X 4 DOSES ONLY Cefazolin Sodium 1 gm/ (Dextrose) 50 mls @ 100 mls/hr IVPB Q8H-IV [facility] Stop: 11/26/17 17:59 Last Admin: 11/25/17 17:39 Dose: 100 mls/hr Dextrose/Sodium Chloride (D5-Ns -) 1,000 mls @ 83 mls/hr IV ASDIR [facility] Last Admin: 11/25/17 17:43 Dose: 83 mls/hr Lactated Ringer's (Lactated Ringers Solution) 1,000 mls @ 125 mls/hr IV ASDIR [facility] Levothyroxine Sodium (Synthroid -) 50 mcg PO ACBK [facility] Lisinopril (Prinivil) 40 mg PO DAILY [facility] Lorazepam (Ativan -) 0.5 mg PO DAILY PRN PRN Reason: ANXIETY Metoprolol Succinate (Toprol Xl -) 25 mg PO DAILY [facility] Montelukast Sodium (Singulair -) 10 mg PO HS [facility] Last Admin: 11/25/17 21:14 Dose: 10 mg Mupirocin (Bactroban Ointment (For Decolonization) -) 1 applic NS BID [facility] Stop: 11/30/17 21:59 Last Admin: 11/25/17 21:11 Dose: 1 applic Non-Formulary Medication (Patient's Own Med) 1 each PO DAILY [facility] Ondansetron HCl (Zofran Injection) 4 mg IVPUSH Q6H PRN PRN Reason: NAUSEA AND/OR VOMITING Ondansetron HCl (Zofran Injection) 4 mg IVPUSH Q6H PRN PRN Reason: NAUSEA AND/OR VOMITING Oxycodone HCl (Roxicodone -) 5 mg PO Q4H PRN PRN Reason: PAIN LEVEL 6-10 Oxycodone HCl (Roxicodone -) 10 mg PO Q4H PRN PRN Reason: PAIN LEVEL 7 - 10 Promethazine HCl (Phenergan Injection -) 12.5 mg IVPB Q6H PRN PRN Reason: NAUSEA-FOR RESCUE AFTER 15 MIN Sertraline HCl (Zoloft -) 25 mg PO DAILY [facility] Problem List - Problems (1) Spinal stenosis Code(s): M48.00 - SPINAL STENOSIS, SITE UNSPECIFIED (2) S/P discectomy Code(s): Z98.890 - OTHER SPECIFIED POSTPROCEDURAL STATES (3) Hypertension Code(s): I10 - ESSENTIAL (PRIMARY) HYPERTENSION Qualifiers: Hypertension type: essential hypertension Qualified Code(s): I10 - Essential (primary) hypertension (4) Hypothyroidism Code(s): E03.9 - HYPOTHYROIDISM, UNSPECIFIED (5) Myelopathy Code(s): G95.9 - DISEASE OF SPINAL CORD, UNSPECIFIED (6) Neck pain Code(s): M54.2 - CERVICALGIA Assessment/Plan 67yow with PMHx of HTN, hypothyroidism,CVA, spinal stenosis s/p multiple repairs now today s/p spinal hardware removal, c5-c6 corpectomies, C4 and [id number] corpectomies, C4-C7 ACDF. Plan: -Post-op care as per surgery -Assess surgical site for bleeding, redness swelling -Cont decadron BID -Cont post-op Ancef -Neuro checks -Pain management with Tylenol IV -Activity as per surgery -Restart home antihypertensives -Monitor UOP -D/c og when OOB -Clear diet as tito -SCDs FARA Borja [facility] time 35mins
[2017-11-25] MEDS ORDERED: METOPROLOL TARTRATE 25 MG TABLET (FP) PO ONE (21:00)
[2017-11-25] MEDS: MUPIROCIN 2% TOPICAL OINTMENT FOR DECOLONIZATION NS SCH (21:11)
[2017-11-25] MEDS: DEXAMETHASONE SOD PHOSPHATE 10 MG/1 ML VIAL IVPUSH SCH (21:11)
[2017-11-25] MEDS ORDERED: MONTELUKAST NA 10 MG TABLET PO SCH (22:00)
[2017-11-25] MEDS ORDERED: CHLORHEXIDINE GLUCONATE 4% CLEANSER FOR DECOLONIZATION TP SCH (22:00)
[2017-11-26] MEDS ORDERED: ceFAZolin SODIUM 1 GM VIAL ONE ×4 (02:33→21:13)
[2017-11-26] MEDS ORDERED: DEXTROSE 5%-WATER - 50 ML IVPB ONE ×4 (02:35→21:13)
[2017-11-26] MEDS: CEFAZOLIN 1 GM in DEXTROSE 5%-WATER - 50 ML IVPB SCH ×3 (02:45→18:21)
[2017-11-26] MEDS: ACETAMINOPHEN 1000 MG/100 ML VIAL (NON FORMULARY) IVPB PRN ×2 (03:21→09:29)
[2017-11-26] MEDS ORDERED: PT OWN MED DRAWER 7, Y5N ONE ×2 (05:58→18:06)
[2017-11-26 06:14] LABS: BASO % 0.1 % (0-2.0); EOS % 0.1 % (0-4.5); HEMATOCRIT 36.2 % (32.4-45.2); HEMOGLOBIN 12.5 GM/dL (10.7-15.3); LYMPH % 3.4 % (8-40); MCH 32.3 pg (25.7-33.7); MCHC 34.5 g/dl (32.0-36.0); MEAN CELL VOLUME 93.5 fl (80-96); MEAN PLT VOLUME 8.4 fl (7.5-11.1); MONO % 4.6 % (3.8-10.2); NEUT % 91.8 % (42.8-82.8); PLATELET COUNT 218 K/MM3 (134-434); RBC 3.88 M/mm3 (3.60-5.2); RDW 14.5 % (11.6-15.6); WHITE BLOOD COUNT 13.6 K/mm3 (4.0-10.0)
--- NOTE | 2017-11-26 06:41 | PN ---
Progress Note (short form) - Note Progress Note: Chief Complaint: Events noted, notes reviewed, complaining of headache and incisional discomfort, denies any chest pain or dyspnea, denies palpitations History of Present Illness: Seen and examined in the ICU. Events noted, notes reviewed, complaining of headache and incisional discomfort, denies any chest pain or dyspnea, denies palpitations - Current Medication List Current Medications: Active Medications Current Medications Acetaminophen (Tylenol -) 650 mg PO Q4H PRN PRN Reason: PAIN LEVEL 1-5 Acetaminophen (Ofirmev Injection -) 1,000 mg IVPB Q6H PRN PRN Reason: PAIN LEVEL 6-10 Last Admin: 11/26/17 03:21 Dose: 1,000 mg Chlorhexidine Gluconate (Hibiclens For Decolonization -) 1 applic TP HS [facility] Last Admin: 11/25/17 21:11 Dose: 1 applic Dexamethasone Sodium Phosphate (Decadron Injection -) 10 mg IVPUSH BID [facility] Stop: 11/26/17 10:01 Last Admin: 11/25/17 21:11 Dose: 10 mg Docusate Sodium (Colace -) 100 mg PO Q8H PRN PRN Reason: CONSTIPATION Fentanyl (Sublimaze Injection -) 50 mcg IVPUSH [id number] PRN PRN Reason: PAIN-PACU ORDER X 4 DOSES ONLY Cefazolin Sodium 1 gm/ (Dextrose) 50 mls @ 100 mls/hr IVPB Q8H-IV [facility] Stop: 11/26/17 17:59 Last Admin: 11/26/17 02:45 Dose: 100 mls/hr Dextrose/Sodium Chloride (D5-Ns -) 1,000 mls @ 83 mls/hr IV ASDIR [facility] Last Admin: 11/25/17 17:43 Dose: 83 mls/hr Lactated Ringer's (Lactated Ringers Solution) 1,000 mls @ 125 mls/hr IV ASDIR [facility] Last Admin: 11/26/17 06:25 Dose: 125 mls/hr Levothyroxine Sodium (Synthroid -) 50 mcg PO ACBK [facility] Last Admin: 11/26/17 06:04 Dose: 50 mcg Lisinopril (Prinivil) 40 mg PO DAILY [facility] Last Admin: 11/26/17 06:55 Dose: 40 mg Lorazepam (Ativan -) 0.5 mg PO DAILY PRN PRN Reason: ANXIETY Last Admin: 11/26/17 02:53 Dose: 0.5 mg Metoprolol Succinate (Toprol Xl -) 25 mg PO DAILY [facility] Montelukast Sodium (Singulair -) 10 mg PO HS [facility] Last Admin: 11/25/17 21:14 Dose: 10 mg Mupirocin (Bactroban Ointment (For Decolonization) -) 1 applic NS BID [facility] Stop: 11/30/17 21:59 Last Admin: 11/25/17 21:11 Dose: 1 applic Non-Formulary Medication (Patient's Own Med) 1 each PO DAILY [facility] Ondansetron HCl (Zofran Injection) 4 mg IVPUSH Q6H PRN PRN Reason: NAUSEA AND/OR VOMITING Ondansetron HCl (Zofran Injection) 4 mg IVPUSH Q6H PRN PRN Reason: NAUSEA AND/OR VOMITING Oxycodone HCl (Roxicodone -) 5 mg PO Q4H PRN PRN Reason: PAIN LEVEL 6-10 Oxycodone HCl (Roxicodone -) 10 mg PO Q4H PRN PRN Reason: PAIN LEVEL 7 - 10 Promethazine HCl (Phenergan Injection -) 12.5 mg IVPB Q6H PRN PRN Reason: NAUSEA-FOR RESCUE AFTER 15 MIN Sertraline HCl (Zoloft -) 25 mg PO DAILY [facility] Review of Systems Cardiovascular: As noted above Respiratory: denies: Cough or Sputum Production Gastrointestinal: denies: Nausea, Vomiting, Diarrhea, Constipation or Abdominal Discomfort Musculoskeletal: Neck Discomfort Endocrine: No Symptoms Reported - Objective Vital Signs: Last Vital Signs Temp Pulse Resp BP Pulse Ox 97.6 F 58 L 14 170/71 100 11/26/17 06:43 11/26/17 06:43 11/26/17 06:43 11/26/17 06:43 11/25/17 21:00 Intake & Output 11/23/17 11/24/17 11/25/17 11/26/17 23:59 23:59 23:59 23:59 Intake Total 680 1100 2533 1046 Output Total 150 1025 1200 Balance 530 1100 1508 -154 Weight 129 lb Constitutional: Mild Distress, Anxious Neck: Negative JVD Cardiovascular: S1 S2 Regular Rate and Rhythm No Murmurs Respiratory: Clear Bilaterally Gastrointestinal: soft Benign Normal Bowel Sounds Ext: No Edema Labs: CBC, BMP 11/26/17 05:46 11/26/17 05:46 Hepatic Panel Total Bilirubin 0.5 mg/dL (0.2-1.0) D 11/26/17 05:46 AST 39 U/L (15-37) H 11/26/17 05:46 ALT 47 U/L (12-78) 11/26/17 05:46 Alkaline Phosphatase 60 U/L (45-117) 11/26/17 05:46 Albumin 3.2 g/dl (3.4-5.0) L 11/26/17 05:46 INR, PTT INR 1.00 (0.82-1.09) 11/22/17 14:25 Assessment/Plan ASSESSMENT: 1. Post-operative day #1 post MOLLY C5-C6, C4-5, C6-7 discectomies, C5 & C6 corpectomies, C4, C7 partial corpectomies and C4-C7 ACDF 2. Probable diastolic LV dysfunction with class 0 NYHA classification LV failure 3. HTN, not at goal 4. 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 Hypothyroidism 6. History of palpitations 7. History of anxiety disorder PLAN: 1. Continue Lisinopril and administer early today 2. Continue Toprol XL 3. Resume ASA once cleared by neurosurgery 4. Pain management as per the primary team Mari Lopez MD
[2017-11-26 06:58] LABS: CALCIUM 8.3 mg/dL (8.5-10.1); CHLORIDE 107 mmol/L (98-107); POTASSIUM 4.4 mmol/L (3.5-5.1); SODIUM 142 mmol/L (136-145)
[2017-11-26] MEDS ORDERED: LEVOTHYROXINE NA 50 MCG TABLET (FP) PO SCH (07:00)
[2017-11-26] MEDS ORDERED: LISINOPRIL 20 MG TABLET (FP) PO SCH (07:00)
[2017-11-26 07:04] LABS: ALBUMIN 3.2 g/dl (3.4-5.0); ALK PHOS 60 U/L (45-117); ANION GAP 10 (8-16); BILIRUBIN,TOTAL 0.5 mg/dL (0.2-1.0); BLOOD UREA NITROGEN 11 mg/dL (7-18); CO2 25 mmol/L (21-32); CREATININE 0.9 mg/dL (0.55-1.02); GLUCOSE,RANDOM 137 mg/dL (74-106); SGOT/AST 39 U/L (15-37); SGPT/ALT 47 U/L (12-78); TOT PROT 6.3 g/dl (6.4-8.2)
--- NOTE | 2017-11-26 07:55 | PN ---
Physical Exam: SUBJECTIVE: Patient awake. C/o sore throat. Last BM pre-operative. Tolerating PO intake. Denies any chest pain, shortness of breath, nausea/vomiting, numbness /tingling. OBJECTIVE: Vital Signs Period Temp Pulse Resp BP Sys/Dominguez Pulse Ox Last 24 Hr 97.6 F-98.4 F 58-88 11-20 143-194/64-98 96-100 GENERAL: The patient is awake, alert, and fully oriented, in no acute distress. NECK: Incision C/D/I HEAD: Normal with no signs of trauma. EYES: PERRL, extraocular movements intact, sclera anicteric, conjunctiva clear. No ptosis. LUNGS: Breath sounds equal, clear to auscultation bilaterally, no wheezes, no crackles, no accessory muscle use. HEART: Regular rate and rhythm, S1, S2 without murmur, rub or gallop. ABDOMEN: Soft, nontender, nondistended, normoactive bowel sounds, no guarding, no rebound, no hepatosplenomegaly, no masses. EXTREMITIES: 2+ pulses, warm, well-perfused, no edema. SKIN: Warm, dry, normal turgor, no rashes or lesions noted Laboratory Results - last 24 hr 11/26/17 11/26/17 05:46 05:46 WBC 13.6 H D RBC 3.88 Hgb 12.5 Hct 36.2 MCV 93.5 MCH 32.3 MCHC 34.5 RDW 14.5 Plt Count 218 MPV 8.4 Neutrophils % 91.8 H D Lymphocytes % 3.4 L D Monocytes % 4.6 Eosinophils % 0.1 Basophils % 0.1 Sodium 142 Potassium 4.4 Chloride 107 Carbon Dioxide 25 Anion Gap 10 BUN 11 Creatinine 0.9 Creat Clearance w eGFR > 60 Random Glucose 137 H Calcium 8.3 L Total Bilirubin 0.5 D AST 39 H ALT 47 Alkaline Phosphatase 60 Total Protein 6.3 L Albumin 3.2 L Active Medications Generic Name Dose Route Start Last Admin Trade Name Freq PRN Reason Stop Dose Admin Acetaminophen 650 mg 11/25/17 14:46 Tylenol - PO Q4H PRN PAIN LEVEL 1-5 Acetaminophen 1,000 mg 11/25/17 20:08 11/26/17 03:21 Ofirmev Injection - IVPB 1,000 mg Q6H PRN Administration PAIN LEVEL 6-10 Chlorhexidine Gluconate 1 applic 11/25/17 22:00 11/25/17 21:11 Hibiclens For Decolonization - TP 1 applic HS [facility] Administration Dexamethasone Sodium Phosphate 10 mg 11/25/17 22:00 11/25/17 21:11 Decadron Injection - IVPUSH 11/26/17 10:01 10 mg BID [facility] Administration Docusate Sodium 100 mg 11/25/17 14:46 Colace - PO Q8H PRN CONSTIPATION Fentanyl 50 mcg 11/25/17 17:16 Sublimaze Injection - IVPUSH [id number] PRN PAIN-PACU ORDER X 4 DOSES ONLY Cefazolin Sodium 1 gm/ 50 mls @ 100 mls/hr 11/25/17 18:00 11/26/17 02:45 Dextrose IVPB 11/26/17 17:59 100 mls/hr Q8H-IV [facility] Administration Dextrose/Sodium Chloride 1,000 mls @ 83 mls/hr 11/25/17 14:46 11/25/17 17:43 D5-Ns - IV 83 mls/hr ASDIR [facility] Administration Lactated Ringer's 1,000 mls @ 125 mls/hr 11/25/17 17:30 11/26/17 06:25 Lactated Ringers Solution IV 125 mls/hr ASDIR [facility] Administration Levothyroxine Sodium 50 mcg 11/26/17 07:00 11/26/17 06:04 Synthroid - PO 50 mcg ACBK [facility] Administration Lisinopril 40 mg 11/26/17 07:00 11/26/17 06:55 Prinivil PO 40 mg DAILY [facility] Administration Lorazepam 0.5 mg 11/25/17 14:46 11/26/17 02:53 Ativan - PO 0.5 mg DAILY PRN Administration ANXIETY Metoprolol Succinate 25 mg 11/26/17 10:00 Toprol Xl - PO DAILY [facility] Montelukast Sodium 10 mg 11/25/17 22:00 11/25/17 21:14 Singulair - PO 10 mg HS [facility] Administration Mupirocin 1 applic 11/25/17 22:00 11/25/17 21:11 Bactroban Ointment (For Decolonization) - NS 11/30/17 21:59 1 applic BID [facility] Administration Non-Formulary Medication 1 each 11/26/17 10:00 Patient's Own Med PO DAILY [facility] Ondansetron HCl 4 mg 11/25/17 14:19 Zofran Injection IVPUSH Q6H PRN NAUSEA AND/OR VOMITING Ondansetron HCl 4 mg 11/25/17 17:34 Zofran Injection IVPUSH Q6H PRN NAUSEA AND/OR VOMITING Oxycodone HCl 5 mg 11/25/17 14:19 Roxicodone - PO Q4H PRN PAIN LEVEL 6-10 Oxycodone HCl 10 mg 11/25/17 14:19 Roxicodone - PO Q4H PRN PAIN LEVEL 7 - 10 Promethazine HCl 12.5 mg 11/25/17 17:34 Phenergan Injection - IVPB Q6H PRN NAUSEA-FOR RESCUE AFTER 15 MIN Sertraline HCl 25 mg 11/26/17 10:00 Zoloft - PO DAILY [facility] ASSESSMENT/PLAN: 67 year old female POD #1 from C5-C6 MOLLY, C4-C5 and C6-C7 disectomies, C5 corpectomy, C6 corpectomy, C4 partial corpectomy, C7 partial corpectomy, C4-C7 ACDF. 1. POD #1 from C5-C6 MOLLY, C4-C5 and C6-C7 disectomies, C5 corpectomy, C6 corpectomy, C4 partial corpectomy, C7 partial corpectomy, C4-C7 ACDF - Patient awake, alert, no post operative BM, c/o sore throat - Continue pain control w/Tylenol given patient's h/o of multiple DA - Increase bowel regimen w/Senna, Miralax - Cepacol PRN for sore throat 2. HTN Overnight BP range 150's-170's/70's-80's Likely 2/2 to pain Will continue home medication regimen of Metoprolol, Lisinopril 3. HYPOTHYROIDISM - Continue Levothyroxine (50 mcg), home dose 4. ANXIETY - Continue Ativan (0.5 mg QD), home dose - Continue Sertraline (25 mg QD), home dose FEN Continue to monitor electrolytes CLD - consider advancing diet as tolerated PROPHYLAXIS SCDs Holding A/C as per surgery recommendation Disposition: As per surgery/primary Visit type - Emergency Visit Emergency Visit: No - New Patient This patient is new to me today: Yes Date on this admission: 11/26/17 - Critical Care Critical Care patient: No
[2017-11-26] MEDS: MUPIROCIN 2% TOPICAL OINTMENT FOR DECOLONIZATION NS SCH ×2 (09:19→21:24)
[2017-11-26] MEDS: DEXAMETHASONE SOD PHOSPHATE 10 MG/1 ML VIAL IVPUSH SCH (09:20)
[2017-11-26] MEDS ORDERED: metoPROLOL SUCCINATE 25 MG TAB.SR.24H (FP) PO SCH (10:00)
[2017-11-26] MEDS ORDERED: POLYETHYLENE GLYCOL 3350 119 GM BTL PO SCH (10:00)
[2017-11-26] MEDS ORDERED: SERTRALINE HCL 25 MG TABLET (FP) PO SCH (10:00)
--- NOTE | 2017-11-26 10:06 | PN ---
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 The patient reports a history of cervical spine surgery, most recent fusion 17 months ago. She reported over the past 2 months the pain in the neck has worsened and is accompanied by spasms and pain shooting down into her shoulders. About 3.5 weeks ago, the patient developed a frontal headache with temporal pain. She went to the ED at [facility] where they found she had an elevated BP and performed a head CT with showed a "normal brain". The patient saw Dr. Tovar who did further imaging of her neck and stated worsening status and completed surgical intervetnion on Saturday 11/25. The patient currently in ICU getting critical care monitoring post-op. Orthopedic surgeon managing. She reports neck pain, not able to take multiple pain medication due to allergies. Gettign IV tylenol, discussed with nurse at bedside. Active Medications Acetaminophen (Tylenol -) 650 mg PO Q4H PRN PRN Reason: PAIN LEVEL 1-5 Acetaminophen (Ofirmev Injection -) 1,000 mg IVPB Q6H PRN PRN Reason: PAIN LEVEL 6-10 Last Admin: 11/26/17 09:29 Dose: 1,000 mg Chlorhexidine Gluconate (Hibiclens For Decolonization -) 1 applic TP HS PACO Last Admin: 11/25/17 21:11 Dose: 1 applic Docusate Sodium (Colace -) 100 mg PO Q8H PRN PRN Reason: CONSTIPATION Fentanyl (Sublimaze Injection -) 50 mcg IVPUSH [id number] PRN PRN Reason: PAIN-PACU ORDER X 4 DOSES ONLY Cefazolin Sodium 1 gm/ (Dextrose) 50 mls @ 100 mls/hr IVPB Q8H-IV [facility] Stop: 11/26/17 17:59 Last Admin: 11/26/17 09:19 Dose: 100 mls/hr Dextrose/Sodium Chloride (D5-Ns -) 1,000 mls @ 83 mls/hr IV ASDIR [facility] Last Admin: 11/25/17 17:43 Dose: 83 mls/hr Lactated Ringer's (Lactated Ringers Solution) 1,000 mls @ 125 mls/hr IV ASDIR [facility] Last Admin: 11/26/17 06:25 Dose: 125 mls/hr Levothyroxine Sodium (Synthroid -) 50 mcg PO ACBK [facility] Last Admin: 11/26/17 06:04 Dose: 50 mcg Lisinopril (Prinivil) 40 mg PO DAILY [facility] Last Admin: 11/26/17 06:55 Dose: 40 mg Lorazepam (Ativan -) 0.5 mg PO DAILY PRN PRN Reason: ANXIETY Last Admin: 11/26/17 02:53 Dose: 0.5 mg Metoprolol Succinate (Toprol Xl -) 25 mg PO DAILY [facility] Last Admin: 11/26/17 09:20 Dose: 25 mg Montelukast Sodium (Singulair -) 10 mg PO [facility] Last Admin: 11/25/17 21:14 Dose: 10 mg Mupirocin (Bactroban Ointment (For Decolonization) -) 1 applic NS BID [facility] Stop: 11/30/17 21:59 Last Admin: 11/26/17 09:19 Dose: 1 applic Non-Formulary Medication (Patient's Own Med) 1 each PO DAILY [facility] Last Admin: 11/26/17 09:21 Dose: 1 each Ondansetron HCl (Zofran Injection) 4 mg IVPUSH Q6H PRN PRN Reason: NAUSEA AND/OR VOMITING Ondansetron HCl (Zofran Injection) 4 mg IVPUSH Q6H PRN PRN Reason: NAUSEA AND/OR VOMITING Oxycodone HCl (Roxicodone -) 5 mg PO Q4H PRN PRN Reason: PAIN LEVEL 6-10 Oxycodone HCl (Roxicodone -) 10 mg PO Q4H PRN PRN Reason: PAIN LEVEL 7 - 10 Polyethylene Glycol (Miralax (For Daily Use) -) 17 gm PO DAILY [facility] Promethazine HCl (Phenergan Injection -) 12.5 mg IVPB Q6H PRN PRN Reason: NAUSEA-FOR RESCUE AFTER 15 MIN Senna/Docusate Sodium (Pericolace -) 2 tablet PO [facility] Stop: 11/27/17 08:03 Sertraline HCl (Zoloft -) 25 mg PO DAILY [facility] Last Admin: 11/26/17 09:21 Dose: 25 mg PHYSICAL EXAMINATION Vital Signs Temperature 97.6 F 11/26/17 06:43 Pulse Rate 56 L 11/26/17 08:00 Respiratory Rate 14 11/26/17 08:00 Blood Pressure 171/72 11/26/17 08:00 O2 Sat by Pulse Oximetry (%) 100 11/25/17 21:00 GENERAL: Awake, alert, and fully oriented, in no acute distress. HEAD: Normal with no signs of trauma. EYES: Pupils equal, round and reactive to light, extraocular movements intact, sclera anicteric, conjunctiva clear. No lid lag. EARS, NOSE, THROAT: Ears normal, nares patent, oropharynx clear without exudates. Moist mucous membranes. NECK: Wearing soft collar. LUNGS: Breath sounds equal, clear to auscultation bilaterally. No wheezes, and no crackles. No accessory muscle use. HEART: Regular rate and rhythm, normal S1 and S2 without murmur, rub or gallop. ABDOMEN: Soft, nontender, not distended, normoactive bowel sounds, no guarding, no rebound, no masses. No hepatomegaly or splenomegaly. MUSCULOSKELETAL: Normal range of motion at all joints. No bony deformities or tenderness. No CVA tenderness. UPPER EXTREMITIES: 2+ pulses, warm, well-perfused. No cyanosis. No clubbing. No peripheral edema. LOWER EXTREMITIES: 2+ pulses, warm, well-perfused. No calf tenderness. No peripheral edema. NEUROLOGICAL: CN intact, 3+/5 strenght in UE, B/l lower extremities with 5/5 muscle strength, sensory symetric to LT in UE and LE, gait deferrred PSYCHIATRIC: Cooperative. Good eye contact. Appropriate mood and affect. SKIN: Warm, dry, normal turgor, no rashes or lesions noted, normal capillary refill. CBCD WBC 13.6 K/mm3 (4.0-10.0) H D 11/26/17 05:46 RBC 3.88 M/mm3 (3.60-5.2) 11/26/17 05:46 Hgb 12.5 GM/dL (10.7-15.3) 11/26/17 05:46 Hct 36.2 % (32.4-45.2) 11/26/17 05:46 MCV 93.5 fl (80-96) 11/26/17 05:46 MCHC 34.5 g/dl (32.0-36.0) 11/26/17 05:46 RDW 14.5 % (11.6-15.6) 11/26/17 05:46 Plt Count 218 K/MM3 (134-434) 11/26/17 05:46 MPV 8.4 fl (7.5-11.1) 11/26/17 05:46 CMP Sodium 142 mmol/L (136-145) 11/26/17 05:46 Potassium 4.4 mmol/L (3.5-5.1) 11/26/17 05:46 Chloride 107 mmol/L (98-107) 11/26/17 05:46 Carbon Dioxide 25 mmol/L (21-32) 11/26/17 05:46 Anion Gap 10 (8-16) 11/26/17 05:46 BUN 11 mg/dL (7-18) 11/26/17 05:46 Creatinine 0.9 mg/dL (0.55-1.02) 11/26/17 05:46 Creat Clearance w eGFR > 60 (>60) 11/26/17 05:46 Calcium 8.3 mg/dL (8.5-10.1) L 11/26/17 05:46 Total Bilirubin 0.5 mg/dL (0.2-1.0) D 11/26/17 05:46 AST 39 U/L (15-37) H 11/26/17 05:46 ALT 47 U/L (12-78) 11/26/17 05:46 Alkaline Phosphatase 60 U/L (45-117) 11/26/17 05:46 Total Protein 6.3 g/dl (6.4-8.2) L 11/26/17 05:46 Albumin 3.2 g/dl (3.4-5.0) L 11/26/17 05:46 Assessment: 67 year old female with PMHx of HTN, hypothyroidism, 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 The patient reports a history of cervical spine surgery, most recent fusion 17 months ago. She reported over the past 2 months the pain in the neck has worsened and is accompanied by spasms and pain shooting down into her shoulders. About 3.5 weeks ago, the patient developed a frontal headache with temporal pain. She went to the ED at [facility] where they found she had an elevated BP and performed a head CT with showed a "normal brain". The patient saw Dr. Tovar who did further imaging of her neck and stated worsening status and will need to perform surgery on Saturday 11/25. The patient saw Dr. Tovar who did further imaging of her neck and stated worsening status and completed surgical intervetnion on Saturday 11/25. The patient currently in ICU getting critical care monitoring post-op. Orthopedic surgeon managing. She reports neck pain, not able to take multiple pain medication due to allergies. Gettign IV tylenol, discussed with nurse at bedside. Pain mgmt as tolerated. PT/OT, consider rehab if indicated. DVT ppx. Follow up Orthopedic Rec'd. Critical care time 35 mins.
[2017-11-26] MEDS ORDERED: BENZOCAINE/MENTH/CETYLPYRD CL 1 EACH LOZENGE MM PRN ×2 (11:30→17:53)
--- NOTE | 2017-11-26 12:25 | PN ---
Teaching Attending Note Name of Resident: Deandra Travis ATTENDING PHYSICIAN STATEMENT I saw and evaluated the patient. I reviewed the resident's note and discussed the case with the resident. I agree with the resident's findings and plan as documented. SUBJECTIVE: Pt seen and examined in the ICU. c/o throat discomfort. Pain relatively controlled on tylenol. OBJECTIVE: Last Vital Signs Temp Pulse Resp BP Pulse Ox 97.7 F 58 L 14 181/79 100 11/26/17 10:12 11/26/17 10:12 11/26/17 10:12 11/26/17 10:12 11/26/17 09:00 Intake & Output 11/23/17 11/24/17 11/25/17 11/26/17 23:59 23:59 23:59 23:59 Intake Total 680 1100 2533 1046 Output Total 150 1025 1200 Balance 530 1100 1508 -154 Weight 58.513 kg Gen: NAD in chair Heart: RRR Lung: decreased breath sounds at the bases Abd: soft, nontender Ext: no edema CBC, BMP 11/26/17 05:46 11/26/17 05:46 Active Medications Acetaminophen (Tylenol -) 650 mg PO Q4H PRN PRN Reason: PAIN LEVEL 1-5 Acetaminophen (Ofirmev Injection -) 1,000 mg IVPB Q6H PRN PRN Reason: PAIN LEVEL 6-10 Last Admin: 11/26/17 09:29 Dose: 1,000 mg Benzocaine/Menthol (Cepacol Lozenge -) 1 each MM PRN PRN PRN Reason: SORE THROAT Chlorhexidine Gluconate (Hibiclens For Decolonization -) 1 applic TP HS PACO Last Admin: 11/25/17 21:11 Dose: 1 applic Docusate Sodium (Colace -) 100 mg PO Q8H PRN PRN Reason: CONSTIPATION Fentanyl (Sublimaze Injection -) 50 mcg IVPUSH [id number] PRN PRN Reason: PAIN-PACU ORDER X 4 DOSES ONLY Cefazolin Sodium 1 gm/ (Dextrose) 50 mls @ 100 mls/hr IVPB Q8H-IV [facility] Stop: 11/26/17 17:59 Last Admin: 11/26/17 09:19 Dose: 100 mls/hr Dextrose/Sodium Chloride (D5-Ns -) 1,000 mls @ 83 mls/hr IV ASDIR [facility] Last Admin: 11/25/17 17:43 Dose: 83 mls/hr Lactated Ringer's (Lactated Ringers Solution) 1,000 mls @ 125 mls/hr IV ASDIR [facility] Last Admin: 11/26/17 06:25 Dose: 125 mls/hr Levothyroxine Sodium (Synthroid -) 50 mcg PO ACBK [facility] Last Admin: 11/26/17 06:04 Dose: 50 mcg Lisinopril (Prinivil) 40 mg PO DAILY [facility] Last Admin: 11/26/17 06:55 Dose: 40 mg Lorazepam (Ativan -) 0.5 mg PO DAILY PRN PRN Reason: ANXIETY Last Admin: 11/26/17 02:53 Dose: 0.5 mg Metoprolol Succinate (Toprol Xl -) 25 mg PO DAILY [facility] Last Admin: 11/26/17 09:20 Dose: 25 mg Montelukast Sodium (Singulair -) 10 mg PO HS [facility] Last Admin: 11/25/17 21:14 Dose: 10 mg Mupirocin (Bactroban Ointment (For Decolonization) -) 1 applic NS BID [facility] Stop: 11/30/17 21:59 Last Admin: 11/26/17 09:19 Dose: 1 applic Non-Formulary Medication (Patient's Own Med) 1 each PO DAILY [facility] Last Admin: 11/26/17 09:21 Dose: 1 each Ondansetron HCl (Zofran Injection) 4 mg IVPUSH Q6H PRN PRN Reason: NAUSEA AND/OR VOMITING Ondansetron HCl (Zofran Injection) 4 mg IVPUSH Q6H PRN PRN Reason: NAUSEA AND/OR VOMITING Oxycodone HCl (Roxicodone -) 5 mg PO Q4H PRN PRN Reason: PAIN LEVEL 6-10 Oxycodone HCl (Roxicodone -) 10 mg PO Q4H PRN PRN Reason: PAIN LEVEL 7 - 10 Polyethylene Glycol (Miralax (For Daily Use) -) 17 gm PO DAILY [facility] Last Admin: 11/26/17 11:00 Dose: 17 grams Promethazine HCl (Phenergan Injection -) 12.5 mg IVPB Q6H PRN PRN Reason: NAUSEA-FOR RESCUE AFTER 15 MIN Senna/Docusate Sodium (Pericolace -) 2 tablet PO [facility] Stop: 11/27/17 08:03 Sertraline HCl (Zoloft -) 25 mg PO DAILY [facility] Last Admin: 11/26/17 09:21 Dose: 25 mg ASSESSMENT AND PLAN: Cervical Spinal Stenosis s/p MOLLY C5-C6, C4-5, C6-7 discectomies, C5 & C6 corpectomies, C4, C7 partial corpectomies and C4-C7 ACDF LV Diastolic Dysfunction HTN h/o CVA Hypothyroidism - pain control - incentive spirometry - bowel regimen - cepacol lozenges - PO per surgery - mechanical DVT prophylaxis - can transfer to floor, will defer to surgery
--- NOTE | 2017-11-26 13:51 | PN ---
Progress Note (short form) - Note Progress Note: Subjective: The patient was seen and examined at the bedside, she has complaints of neck pain Current Medications Generic Name Dose Route Start Last Admin Trade Name Freq PRN Reason Stop Dose Admin Acetaminophen 650 mg 11/25/17 14:46 Tylenol - PO Q4H PRN PAIN LEVEL 1-5 Acetaminophen 1,000 mg 11/25/17 20:08 11/26/17 09:29 Ofirmev Injection - IVPB 1,000 mg Q6H PRN Administration PAIN LEVEL 6-10 Benzocaine/Menthol 1 each 11/26/17 11:30 Cepacol Lozenge - MM PRN PRN SORE THROAT Chlorhexidine Gluconate 1 applic 11/25/17 22:00 11/25/17 21:11 Hibiclens For Decolonization - TP 1 applic HS PACO Administration Docusate Sodium 100 mg 11/25/17 14:46 Colace - PO Q8H PRN CONSTIPATION Fentanyl 50 mcg 11/25/17 17:16 Sublimaze Injection - IVPUSH [id number] PRN PAIN-PACU ORDER X 4 DOSES ONLY Cefazolin Sodium 1 gm/ 50 mls @ 100 mls/hr 11/25/17 18:00 11/26/17 09:19 Dextrose IVPB 11/26/17 17:59 100 mls/hr Q8H-IV [facility]O Administration Dextrose/Sodium Chloride 1,000 mls @ 83 mls/hr 11/25/17 14:46 11/25/17 17:43 D5-Ns - IV 83 mls/hr ASDIR [facility]O Administration Lactated Ringer's 1,000 mls @ 125 mls/hr 11/25/17 17:30 11/26/17 06:25 Lactated Ringers Solution IV 125 mls/hr ASDIR [facility]O Administration Levothyroxine Sodium 50 mcg 11/26/17 07:00 11/26/17 06:04 Synthroid - PO 50 mcg ACBK [facility] Administration Lisinopril 40 mg 11/26/17 07:00 11/26/17 06:55 Prinivil PO 40 mg DAILY [facility] Administration Lorazepam 0.5 mg 11/25/17 14:46 11/26/17 02:53 Ativan - PO 0.5 mg DAILY PRN Administration ANXIETY Metoprolol Succinate 25 mg 11/26/17 10:00 11/26/17 09:20 Toprol Xl - PO 25 mg DAILY [facility] Administration Montelukast Sodium 10 mg 11/25/17 22:00 11/25/17 21:14 Singulair - PO 10 mg HS [facility] Administration Mupirocin 1 applic 11/25/17 22:00 11/26/17 09:19 Bactroban Ointment (For Decolonization) - NS 11/30/17 21:59 1 applic BID [facility] Administration Non-Formulary Medication 1 each 11/26/17 10:00 11/26/17 09:21 Patient's Own Med PO 1 each DAILY [facility] Administration Ondansetron HCl 4 mg 11/25/17 14:19 Zofran Injection IVPUSH Q6H PRN NAUSEA AND/OR VOMITING Ondansetron HCl 4 mg 11/25/17 17:34 Zofran Injection IVPUSH Q6H PRN NAUSEA AND/OR VOMITING Oxycodone HCl 5 mg 11/25/17 14:19 Roxicodone - PO Q4H PRN PAIN LEVEL 6-10 Oxycodone HCl 10 mg 11/25/17 14:19 Roxicodone - PO Q4H PRN PAIN LEVEL 7 - 10 Polyethylene Glycol 17 gm 11/26/17 10:00 11/26/17 11:00 Miralax (For Daily Use) - PO 17 grams DAILY [facility] Administration Promethazine HCl 12.5 mg 11/25/17 17:34 Phenergan Injection - IVPB Q6H PRN NAUSEA-FOR RESCUE AFTER 15 MIN Senna/Docusate Sodium 2 tablet 11/26/17 22:00 Pericolace - PO 11/27/17 08:03 HS [facility] Sertraline HCl 25 mg 11/26/17 10:00 11/26/17 09:21 Zoloft - PO 25 mg DAILY [facility] Administration Objective: Vital Signs Period Temp Pulse Resp BP Sys/Dominguez Pulse Ox Last 24 Hr 97.6 F-98.4 F 56-88 11-17 149-194/64-98 98-100 Physical Exam: General: NAD, A&Ox3 HEENT: Anterior neck dressing, c/d/i Lungs: CTA bilaterally Heart: RRR, S1S2 Abd: Soft, non-tender, non-distended. Normoactive bowel sounds Ext: B/l upper extremities with decreased strength, 3/5. B/l lower extremities 5 /5 strength Neuro: Slight left mouth droop (daughter states patient has had this "forever") CBCD WBC 13.6 K/mm3 (4.0-10.0) H D 11/26/17 05:46 RBC 3.88 M/mm3 (3.60-5.2) 11/26/17 05:46 Hgb 12.5 GM/dL (10.7-15.3) 11/26/17 05:46 Hct 36.2 % (32.4-45.2) 11/26/17 05:46 MCV 93.5 fl (80-96) 11/26/17 05:46 MCHC 34.5 g/dl (32.0-36.0) 11/26/17 05:46 RDW 14.5 % (11.6-15.6) 11/26/17 05:46 Plt Count 218 K/MM3 (134-434) 11/26/17 05:46 MPV 8.4 fl (7.5-11.1) 11/26/17 05:46 CMP Sodium 142 mmol/L (136-145) 11/26/17 05:46 Potassium 4.4 mmol/L (3.5-5.1) 11/26/17 05:46 Chloride 107 mmol/L (98-107) 11/26/17 05:46 Carbon Dioxide 25 mmol/L (21-32) 11/26/17 05:46 Anion Gap 10 (8-16) 11/26/17 05:46 BUN 11 mg/dL (7-18) 11/26/17 05:46 Creatinine 0.9 mg/dL (0.55-1.02) 11/26/17 05:46 Creat Clearance w eGFR > 60 (>60) 11/26/17 05:46 Random Glucose 137 mg/dL (74-106) H 11/26/17 05:46 Calcium 8.3 mg/dL (8.5-10.1) L 11/26/17 05:46 Total Bilirubin 0.5 mg/dL (0.2-1.0) D 11/26/17 05:46 AST 39 U/L (15-37) H 11/26/17 05:46 ALT 47 U/L (12-78) 11/26/17 05:46 Alkaline Phosphatase 60 U/L (45-117) 11/26/17 05:46 Total Protein 6.3 g/dl (6.4-8.2) L 11/26/17 05:46 Albumin 3.2 g/dl (3.4-5.0) L 11/26/17 05:46 CARDIAC ENZYMES Creatine Kinase 41 IU/L (26-192) 11/22/17 14:25 Troponin I < 0.02 ng/ml (0.00-0.05) 11/22/17 14:25 Assessment: This is a 67 year old female with PMHx of HTN, hypothyroidism, CVA ( s/p TPA with hemorrhagic conversion requiring evacuation/surgery), multiple back surgeries, who presented to the ED with progressively worsening headache, neck pain radiating to her shoulders and down her arms. 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 - New Patient This patient is new to me today: No - Critical Care Critical Care patient: No
--- NOTE | 2017-11-26 14:58 | PN ---
Progress Note, Physician Chief Complaint: Pt. is having pain that is helped by IV tylenol. Pain is 10/10 between doses, but she is allergic to nearly every pain medication. She is able to tolerate it with the tylenol for now. - Current Medication List Current Medications: Active Medications Acetaminophen (Tylenol -) 650 mg PO Q4H PRN PRN Reason: PAIN LEVEL 1-5 Acetaminophen (Ofirmev Injection -) 1,000 mg IVPB Q6H PRN PRN Reason: PAIN LEVEL 6-10 Last Admin: 11/26/17 09:29 Dose: 1,000 mg Benzocaine/Menthol (Cepacol Lozenge -) 1 each MM PRN PRN PRN Reason: SORE THROAT Docusate Sodium (Colace -) 100 mg PO Q8H PRN PRN Reason: CONSTIPATION Cefazolin Sodium 1 gm/ (Dextrose) 50 mls @ 100 mls/hr IVPB Q8H-IV [facility] Stop: 11/26/17 17:59 Last Admin: 11/26/17 09:19 Dose: 100 mls/hr Dextrose/Sodium Chloride (D5-Ns -) 1,000 mls @ 83 mls/hr IV ASDIR [facility] Last Admin: 11/25/17 17:43 Dose: 83 mls/hr Lactated Ringer's (Lactated Ringers Solution) 1,000 mls @ 125 mls/hr IV ASDIR [facility] Last Admin: 11/26/17 06:25 Dose: 125 mls/hr Levothyroxine Sodium (Synthroid -) 50 mcg PO ACBK [facility] Last Admin: 11/26/17 06:04 Dose: 50 mcg Lisinopril (Prinivil) 40 mg PO DAILY [facility] Last Admin: 11/26/17 06:55 Dose: 40 mg Lorazepam (Ativan -) 0.5 mg PO DAILY PRN PRN Reason: ANXIETY Last Admin: 11/26/17 02:53 Dose: 0.5 mg Metoprolol Succinate (Toprol Xl -) 25 mg PO DAILY [facility] Last Admin: 11/26/17 09:20 Dose: 25 mg Montelukast Sodium (Singulair -) 10 mg PO HS [facility] Last Admin: 11/25/17 21:14 Dose: 10 mg Mupirocin (Bactroban Ointment (For Decolonization) -) 1 applic NS BID [facility] Stop: 11/30/17 21:59 Last Admin: 11/26/17 09:19 Dose: 1 applic Non-Formulary Medication (Patient's Own Med) 1 each PO DAILY [facility] Last Admin: 11/26/17 09:21 Dose: 1 each Ondansetron HCl (Zofran Injection) 4 mg IVPUSH Q6H PRN PRN Reason: NAUSEA AND/OR VOMITING Ondansetron HCl (Zofran Injection) 4 mg IVPUSH Q6H PRN PRN Reason: NAUSEA AND/OR VOMITING Oxycodone HCl (Roxicodone -) 5 mg PO Q4H PRN PRN Reason: PAIN LEVEL 6-10 Oxycodone HCl (Roxicodone -) 10 mg PO Q4H PRN PRN Reason: PAIN LEVEL 7 - 10 Polyethylene Glycol (Miralax (For Daily Use) -) 17 gm PO DAILY [facility] Last Admin: 11/26/17 11:00 Dose: 17 grams Promethazine HCl (Phenergan Injection -) 12.5 mg IVPB Q6H PRN PRN Reason: NAUSEA-FOR RESCUE AFTER 15 MIN Senna/Docusate Sodium (Pericolace -) 2 tablet PO HS [facility] Stop: 11/27/17 08:03 Sertraline HCl (Zoloft -) 25 mg PO DAILY [facility] Last Admin: 11/26/17 09:21 Dose: 25 mg - Objective Vital Signs: Vital Signs Temperature 97.7 F 11/26/17 10:12 Pulse Rate 64 11/26/17 13:58 Respiratory Rate 18 11/26/17 13:58 Blood Pressure 174/81 11/26/17 13:58 O2 Sat by Pulse Oximetry (%) 100 11/26/17 09:00 Constitutional: Yes: Well Nourished, No Distress, Calm Neurological: Yes: WNL, Alert, Oriented Labs: CBC, BMP 11/26/17 05:46 11/26/17 05:46 INR, PTT INR 1.00 (0.82-1.09) 11/22/17 14:25 Assessment/Plan POD#1 s/p anterior cervical fusion under [place]. Having pain but allergic to most pain meds. Is ok for now with IV tylenol. D/C from anesthesia care.
[2017-11-26] MEDS ORDERED: DEXTROSE 5%-NORMAL SALINE 1,000 ML IV SCH (17:53)
[2017-11-26] MEDS ORDERED: ONDANSETRON 4 MG/2 ML VIAL IVPUSH PRN ×2 (17:53→18:00)
[2017-11-26] MEDS ORDERED: DOCUSATE SODIUM 100 MG CAPSULE (FP) PO PRN (17:53)
[2017-11-26] MEDS ORDERED: oxyCODONE HCL 5 MG TABLET PO PRN ×2 (17:53)
[2017-11-26] MEDS ORDERED: LACTATED RINGERS SOLUTION 1,000 ML IV SCH (17:53)
[2017-11-26] MEDS ORDERED: ACETAMINOPHEN 325 MG TABLET (FP) PO PRN (17:53)
[2017-11-26] MEDS ORDERED: PROMETHAZINE HCL 25 MG/1 ML VIAL IVPB PRN (17:56)
[2017-11-26] MEDS ORDERED: ACETAMINOPHEN 1000 MG/100 ML VIAL (NON FORMULARY) IVPB ONE ×3 (18:30→21:30)
[2017-11-26] MEDS: LORazepam 0.5 MG TABLET PO PRN (21:24)
[2017-11-26] MEDS: MONTELUKAST NA 10 MG TABLET PO SCH (21:26)
[2017-11-26] MEDS ORDERED: SENNOSIDES/DOCUSATE COMBO (SENNA PLUS) TABLET (UD) PO SCH ×2 (22:00)
[2017-11-27] MEDS: CEFAZOLIN 1 GM in DEXTROSE 5%-WATER - 50 ML IVPB SCH ×2 (02:00→09:13)
[2017-11-27] MEDS ORDERED: ACETAMINOPHEN 1000 MG/100 ML VIAL (NON FORMULARY) IVPB ONE (04:00)
[2017-11-27 06:06] LABS: BASO % 0.1 % (0-2.0); EOS % 0.1 % (0-4.5); HEMATOCRIT 34.7 % (32.4-45.2); HEMOGLOBIN 11.9 GM/dL (10.7-15.3); LYMPH % 8.7 % (8-40); MCH 32.2 pg (25.7-33.7); MCHC 34.4 g/dl (32.0-36.0); MEAN CELL VOLUME 93.6 fl (80-96); MEAN PLT VOLUME 8.4 fl (7.5-11.1); MONO % 7.8 % (3.8-10.2); NEUT % 83.3 % (42.8-82.8); PLATELET COUNT 214 K/MM3 (134-434); RBC 3.71 M/mm3 (3.60-5.2); RDW 14.7 % (11.6-15.6); WHITE BLOOD COUNT 13.8 K/mm3 (4.0-10.0)
[2017-11-27] MEDS: LEVOTHYROXINE NA 50 MCG TABLET (FP) PO SCH (06:45)
[2017-11-27 06:48] LABS: ALBUMIN 3.2 g/dl (3.4-5.0); ANION GAP 8 (8-16); BLOOD UREA NITROGEN 15 mg/dL (7-18); CALCIUM 8.5 mg/dL (8.5-10.1); CHLORIDE 107 mmol/L (98-107); CO2 28 mmol/L (21-32); CREATININE 0.9 mg/dL (0.55-1.02); GLUCOSE,RANDOM 84 mg/dL (74-106); POTASSIUM 4.2 mmol/L (3.5-5.1); SGOT/AST 27 U/L (15-37); SGPT/ALT 29 U/L (12-78); SODIUM 143 mmol/L (136-145)
[2017-11-27 06:50] LABS: ALK PHOS 57 U/L (45-117); BILIRUBIN,TOTAL 0.8 mg/dL (0.2-1.0); TOT PROT 6.4 g/dl (6.4-8.2)
[2017-11-27] MEDS ORDERED: ceFAZolin SODIUM 1 GM VIAL ONE (09:10)
[2017-11-27] MEDS ORDERED: DEXTROSE 5%-WATER - 50 ML IVPB ONE (09:10)
[2017-11-27] MEDS: SERTRALINE HCL 25 MG TABLET (FP) PO SCH (09:14)
[2017-11-27] MEDS: MUPIROCIN 2% TOPICAL OINTMENT FOR DECOLONIZATION NS SCH (09:14)
[2017-11-27] MEDS: LISINOPRIL 20 MG TABLET (FP) PO SCH (09:14)
[2017-11-27] MEDS: POLYETHYLENE GLYCOL 3350 119 GM BTL PO SCH (09:15)
[2017-11-27] MEDS ORDERED: PT OWN MED DRAWER 7, Y5N ONE (09:34)
--- NOTE | 2017-11-27 09:34 | PN ---
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 The patient reports a history of cervical spine surgery, most recent fusion 17 months ago. She reported over the past 2 months the pain in the neck has worsened and is accompanied by spasms and pain shooting down into her shoulders. About 3.5 weeks ago, the patient developed a frontal headache with temporal pain. She went to the ED at [facility] where they found she had an elevated BP and performed a head CT with showed a "normal brain". The patient saw Dr. Tovar who did further imaging of her neck and stated worsening status and completed surgical intervention on Saturday 11/25. The patient currently in ICU getting critical care monitoring post-op. Orthopedic surgeon managing. She reports continued pain, not able to take multiple pain medication due to allergies. Getting IV tylenol, discussed with nurse at bedside. Active Medications Acetaminophen (Tylenol -) 650 mg PO Q4H PRN PRN Reason: PAIN LEVEL 1-3 Last Admin: 11/26/17 18:21 Dose: 650 mg Benzocaine/Menthol (Cepacol Lozenge -) 1 each MM PRN PRN PRN Reason: SORE THROAT Docusate Sodium (Colace -) 100 mg PO Q8H PRN PRN Reason: CONSTIPATION Cefazolin Sodium 1 gm/ (Dextrose) 50 mls @ 100 mls/hr IVPB Q8H-IV [facility] Stop: 11/27/17 17:59 Last Admin: 11/27/17 09:13 Dose: 100 mls/hr Levothyroxine Sodium (Synthroid -) 50 mcg PO ACBK [facility] Last Admin: 11/27/17 06:45 Dose: 50 mcg Lisinopril (Prinivil) 40 mg PO DAILY [facility] Last Admin: 11/27/17 09:14 Dose: 40 mg Lorazepam (Ativan -) 0.5 mg PO Q24H PRN PRN Reason: ANXIETY Last Admin: 11/26/17 21:24 Dose: 0.5 mg Metoprolol Succinate (Toprol Xl -) 25 mg PO DAILY [facility] Last Admin: 11/27/17 09:14 Dose: 25 mg Montelukast Sodium (Singulair -) 10 mg PO HS [facility] Last Admin: 11/26/17 21:26 Dose: 10 mg Mupirocin (Bactroban Ointment (For Decolonization) -) 1 applic NS BID [facility] Stop: 11/30/17 21:59 Last Admin: 11/27/17 09:14 Dose: 1 applic Non-Formulary Medication (Patient's Own Med) 1 each PO DAILY [facility] Last Admin: 11/27/17 09:15 Dose: 1 each Ondansetron HCl (Zofran Injection) 4 mg IVPUSH Q6H PRN PRN Reason: NAUSEA AND/OR VOMITING Oxycodone HCl (Roxicodone -) 5 mg PO Q4H PRN PRN Reason: PAIN LEVEL 4-6 Oxycodone HCl (Roxicodone -) 10 mg PO Q4H PRN PRN Reason: PAIN LEVEL 7 - 10 Polyethylene Glycol (Miralax (For Daily Use) -) 17 gm PO DAILY [facility] Last Admin: 11/27/17 09:15 Dose: 17 grams Promethazine HCl (Phenergan Injection -) 12.5 mg IVPB Q6H PRN PRN Reason: NAUSEA-FOR RESCUE AFTER 15 MIN Sertraline HCl (Zoloft -) 25 mg PO DAILY [facility] Last Admin: 11/27/17 09:14 Dose: 25 mg PHYSICAL EXAMINATION Vital Signs Temperature 98.4 F 11/27/17 06:00 Pulse Rate 60 11/27/17 09:11 Respiratory Rate 15 11/27/17 09:11 Blood Pressure 172/74 11/27/17 09:11 O2 Sat by Pulse Oximetry (%) 100 11/26/17 20:54 GENERAL: Awake, alert, and fully oriented, in no acute distress. HEAD: Normal with no signs of trauma. EYES: Pupils equal, round and reactive to light, extraocular movements intact, sclera anicteric, conjunctiva clear. No lid lag. EARS, NOSE, THROAT: Ears normal, nares patent, oropharynx clear without exudates. Moist mucous membranes. NECK: Wearing soft collar. LUNGS: Breath sounds equal, clear to auscultation bilaterally. No wheezes, and no crackles. No accessory muscle use. HEART: Regular rate and rhythm, normal S1 and S2 without murmur, rub or gallop. ABDOMEN: Soft, nontender, not distended, normoactive bowel sounds, no guarding, no rebound, no masses. No hepatomegaly or splenomegaly. MUSCULOSKELETAL: Normal range of motion at all joints. No bony deformities or tenderness. No CVA tenderness. UPPER EXTREMITIES: 2+ pulses, warm, well-perfused. No cyanosis. No clubbing. No peripheral edema. LOWER EXTREMITIES: 2+ pulses, warm, well-perfused. No calf tenderness. No peripheral edema. NEUROLOGICAL: CN intact, 3+/5 strenght in UE, B/l lower extremities with 5/5 muscle strength, sensory symetric to LT in UE and LE, gait deferrred PSYCHIATRIC: Cooperative. Good eye contact. Appropriate mood and affect. SKIN: Warm, dry, normal turgor, no rashes or lesions noted, normal capillary refill. CBCD WBC 13.8 K/mm3 (4.0-10.0) H 11/27/17 05:55 RBC 3.71 M/mm3 (3.60-5.2) 11/27/17 05:55 Hgb 11.9 GM/dL (10.7-15.3) 11/27/17 05:55 Hct 34.7 % (32.4-45.2) 11/27/17 05:55 MCV 93.6 fl (80-96) 11/27/17 05:55 MCHC 34.4 g/dl (32.0-36.0) 11/27/17 05:55 RDW 14.7 % (11.6-15.6) 11/27/17 05:55 Plt Count 214 K/MM3 (134-434) 11/27/17 05:55 MPV 8.4 fl (7.5-11.1) 11/27/17 05:55 CMP Sodium 143 mmol/L (136-145) 11/27/17 05:55 Potassium 4.2 mmol/L (3.5-5.1) 11/27/17 05:55 Chloride 107 mmol/L (98-107) 11/27/17 05:55 Carbon Dioxide 28 mmol/L (21-32) 11/27/17 05:55 Anion Gap 8 (8-16) 11/27/17 05:55 BUN 15 mg/dL (7-18) 11/27/17 05:55 Creatinine 0.9 mg/dL (0.55-1.02) 11/27/17 05:55 Creat Clearance w eGFR > 60 (>60) 11/27/17 05:55 Calcium 8.5 mg/dL (8.5-10.1) 11/27/17 05:55 Total Bilirubin 0.8 mg/dL (0.2-1.0) D 11/27/17 05:55 AST 27 U/L (15-37) 11/27/17 05:55 ALT 29 U/L (12-78) 11/27/17 05:55 Alkaline Phosphatase 57 U/L (45-117) 11/27/17 05:55 Total Protein 6.4 g/dl (6.4-8.2) 11/27/17 05:55 Albumin 3.2 g/dl (3.4-5.0) L 11/27/17 05:55 Assessment: 67 year old female with PMHx of HTN, hypothyroidism, 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 The patient reports a history of cervical spine surgery, most recent fusion 17 months ago. She reported over the past 2 months the pain in the neck has worsened and is accompanied by spasms and pain shooting down into her shoulders. About 3.5 weeks ago, the patient developed a frontal headache with temporal pain. She went to the ED at [facility] where they found she had an elevated BP and performed a head CT with showed a "normal brain". The patient saw Dr. Tovar who did further imaging of her neck and stated worsening status and will need to perform surgery on Saturday 11/25. The patient saw Dr. Tovar who did further imaging of her neck and stated worsening status and completed surgical intervetnion on Saturday 11/25. The patient currently in ICU getting critical care monitoring post-op. Orthopedic surgeon managing. She reports neck pain, not able to take multiple pain medication due to allergies. Getting IV Tylenol, discussed with nurse at bedside. Pain mgmt as tolerated. PT/OT, was ambulating with therapist yesterday. Consider rehab if indicated. DVT ppx. Follow up Orthopedic Rec'd. Critical care time 35 mins.
[2017-11-27] MEDS ORDERED: metoPROLOL SUCCINATE 25 MG TAB.SR.24H (FP) PO SCH (10:00)
--- NOTE | 2017-11-27 10:03 | PN ---
Physical Exam: SUBJECTIVE: Patient seen and examined in the ICU. Having mild pain, but getting IV tylenol which she states helps her pain. Denies any chest pain or shortness of breath. Has multiple allergies to pain medications. Reports constipation x 3 days. OBJECTIVE: Vital Signs Period Temp Pulse Resp BP Sys/Dominguez Pulse Ox Last 24 Hr 97.7 F-98.4 F 56-70 12-18 137-181/65-81 100 GENERAL: The patient is awake, alert, and fully oriented, in no acute distress, reports mild neck pain. HEAD: Normal with no signs of trauma. EYES: PERRL, extraocular movements intact, sclera anicteric, conjunctiva clear. No ptosis. ENT: Ears normal, nares patent, oropharynx clear without exudates, moist mucous membranes. NECK:anterior neck dressing intact LUNGS: Breath sounds equal, clear to auscultation bilaterally, no wheezes, no crackles, no accessory muscle use. HEART: Regular rate and rhythm ABDOMEN: Soft, nontender, nondistended, normoactive bowel sounds, no guarding, no rebound, no hepatosplenomegaly, no masses. EXTREMITIES: 2+ pulses, warm, well-perfused, no edema. NEUROLOGICAL: Cranial nerves II through XII grossly intact. Normal speech, gait not observed. PSYCH: Normal mood, normal affect. SKIN: Warm, dry, normal turgor, no rashes or lesions noted Laboratory Results - last 24 hr 11/27/17 11/27/17 05:55 05:55 WBC 13.8 H RBC 3.71 Hgb 11.9 Hct 34.7 MCV 93.6 MCH 32.2 MCHC 34.4 RDW 14.7 Plt Count 214 MPV 8.4 Neutrophils % 83.3 H Lymphocytes % 8.7 D Monocytes % 7.8 Eosinophils % 0.1 Basophils % 0.1 Sodium 143 Potassium 4.2 Chloride 107 Carbon Dioxide 28 Anion Gap 8 BUN 15 Creatinine 0.9 Creat Clearance w eGFR > 60 Random Glucose 84 Calcium 8.5 Total Bilirubin 0.8 D AST 27 ALT 29 Alkaline Phosphatase 57 Total Protein 6.4 Albumin 3.2 L Active Medications Generic Name Dose Route Start Last Admin Trade Name Freq PRN Reason Stop Dose Admin Acetaminophen 1,000 mg 11/27/17 09:45 Ofirmev Injection - IVPB Q6H PRN PAIN Benzocaine/Menthol 1 each 11/26/17 17:53 Cepacol Lozenge - MM PRN PRN SORE THROAT Docusate Sodium 100 mg 11/26/17 17:53 Colace - PO Q8H PRN CONSTIPATION Cefazolin Sodium 1 gm/ 50 mls @ 100 mls/hr 11/26/17 18:00 11/27/17 09:13 Dextrose IVPB 11/27/17 17:59 100 mls/hr Q8H-IV [facility] Administration Levothyroxine Sodium 50 mcg 11/27/17 07:00 11/27/17 06:45 Synthroid - PO 50 mcg ACBK [facility] Administration Lisinopril 40 mg 11/27/17 10:00 11/27/17 09:14 Prinivil PO 40 mg DAILY [facility] Administration Lorazepam 0.5 mg 11/26/17 18:00 11/26/17 21:24 Ativan - PO 0.5 mg Q24H PRN Administration ANXIETY Metoprolol Succinate 25 mg 11/27/17 10:00 11/27/17 09:14 Toprol Xl - PO 25 mg DAILY [facility] Administration Montelukast Sodium 10 mg 11/26/17 22:00 11/26/17 21:26 Singulair - PO 10 mg HS [facility] Administration Mupirocin 1 applic 11/26/17 22:00 11/27/17 09:14 Bactroban Ointment (For Decolonization) - NS 11/30/17 21:59 1 applic BID [facility] Administration Non-Formulary Medication 1 each 11/27/17 10:00 11/27/17 09:15 Patient's Own Med PO 1 each DAILY [facility] Administration Ondansetron HCl 4 mg 11/26/17 18:00 Zofran Injection IVPUSH Q6H PRN NAUSEA AND/OR VOMITING Oxycodone HCl 5 mg 11/26/17 17:53 Roxicodone - PO Q4H PRN PAIN LEVEL 4-6 Oxycodone HCl 10 mg 11/26/17 17:53 Roxicodone - PO Q4H PRN PAIN LEVEL 7 - 10 Polyethylene Glycol 17 gm 11/27/17 10:00 11/27/17 09:15 Miralax (For Daily Use) - PO 17 grams DAILY [facility] Administration Promethazine HCl 12.5 mg 11/26/17 17:56 Phenergan Injection - IVPB Q6H PRN NAUSEA-FOR RESCUE AFTER 15 MIN Sertraline HCl 25 mg 11/27/17 10:00 11/27/17 09:14 Zoloft - PO 25 mg DAILY [facility] Administration ASSESSMENT/PLAN: Patient is a 67 year old female with a significant past medical history of hypertension, hypothyroidism, CVA (s/p TPA with hemorrhagic conversion s/p evacuation/surgery) and multiple back surgeries Patient presented to the ED on 11/22/2017 with worsening headaches, neck pain. She was found to have cervical spine stenosis and is s/p MOLLY C5-C6, C4-C5, C6-C7 discectomies, C5 & C6 corpectomy, C4-C7 partial corpectomies, C4-C7 ACDF with Dr. Tovar. Ortho/Surgery Cervical spine stenosis s/p MOLLY, C5-C6 corpectomies, C4 & C7 partial corpectomies, C4-C7 ACDF s/p ICU for airway observation Given Decadron 10mg IV q12h x 2 doses post-op Tylenol IV for pain control, pt has multiple allergies Incentive spirometer Clear liquid diet, advance as tolerated. Surgery following Card: Hypertension, elevated this am. but also having pain Will monitor BP and may need an increase of cardiac meds On Lisinoprl 40mg daily, Toprol XL Endo: Hypothyroidism, chornic On Synthroid Neuro: CVA s/p TPA with hemorrhagic conversion s/p evacuation Neuro following Physical therapy F.E.N. Fluids: tolerating PO Electrolytes: monitor Nutrition: advance as per surgery Prophylaxis: DVT: SCDs GI: deferred Disposition: full code
[2017-11-27] MEDS: DOCUSATE SODIUM 100 MG CAPSULE (FP) PO SCH ×2 (14:43→21:32)
--- NOTE | 2017-11-27 15:42 | PATH ---
Surgical Pathology Report Patient Name: RAMON JI [facility]. Rec. #: [id number] /Age/Gender: 1950 (Age: 67) / F Account: [id number] Location: [address] [place] [address] Taken: 11/25/2017 Received: 11/26/2017 Reported: 11/27/2017 Physicians: Isak Tovar M.D. Specimen(s) Received A: DISC C6-7/C4-5 B: EROVED SURGICAL HARDWARE Clinical History Disease of spinal cord, neck pain Final Diagnosis A.C6-7/C4-5 DISC, EXCISION: FRAGMENTS OF CARTILAGINOUS TISSUE AND SCANTY BONE FRAGMENTS WITH DEGENERATIVE CHANGE. B. SURGICAL HARDWARE, REMOVED: SURGICAL HARDWARE. GROSS EXAMINATION ONLY Electronically Signed Neri Corona M.D. Gross Description A. Received in formalin labeled "C6-7, C4-5 disc," is a 3.2 x 2.7 x 0.3 cm aggregate of cooney fragments of fibrocartilaginous tissue. A in home sales representative portion is submitted in one cassette. B. Received fresh labeled "removed surgical hardware," is a 2.0 x 1.6 x 0.2 cm wilkins metallic plate. Also received within the same container is a 1.3 x 1.1 x 0.8 cm black metallic surgical device. There are 4 metallic screws received within the same container, averaging 1.4 cm in length. No soft tissue is present. No sections are submitted, gross only. 11/26/201711/26/2017
[2017-11-27] MEDS ORDERED: metoPROLOL SUCCINATE 25 MG TAB.SR.24H (FP) PO ONE (15:45)
[2017-11-27] MEDS: ACETAMINOPHEN 1000 MG/100 ML VIAL (NON FORMULARY) IVPB PRN (16:18)
[2017-11-27] MEDS: MONTELUKAST NA 10 MG TABLET PO SCH (21:32)
[2017-11-28] MEDS: MUPIROCIN 2% TOPICAL OINTMENT FOR DECOLONIZATION NS SCH ×3 (06:17→22:00)
[2017-11-28] MEDS: LEVOTHYROXINE NA 50 MCG TABLET (FP) PO SCH (06:19)
[2017-11-28] MEDS: DOCUSATE SODIUM 100 MG CAPSULE (FP) PO SCH ×4 (06:19→22:20)
[2017-11-28 09:18] LABS: BASO % 0.3 % (0-2.0); EOS % 1.1 % (0-4.5); HEMATOCRIT 36.1 % (32.4-45.2); HEMOGLOBIN 12.2 GM/dL (10.7-15.3); LYMPH % 14.2 % (8-40); MCH 31.3 pg (25.7-33.7); MCHC 33.6 g/dl (32.0-36.0); MEAN CELL VOLUME 93.1 fl (80-96); MEAN PLT VOLUME 7.7 fl (7.5-11.1); MONO % 10.1 % (3.8-10.2); NEUT % 74.3 % (42.8-82.8); PLATELET COUNT 210 K/MM3 (134-434); RBC 3.88 M/mm3 (3.60-5.2); RDW 14.4 % (11.6-15.6); WHITE BLOOD COUNT 7.1 K/mm3 (4.0-10.0)
[2017-11-28 09:36] LABS: ALK PHOS 59 U/L (45-117); ANION GAP 6 (8-16); BILIRUBIN,TOTAL 0.9 mg/dL (0.2-1.0); BLOOD UREA NITROGEN 14 mg/dL (7-18); CALCIUM 8.1 mg/dL (8.5-10.1); CHLORIDE 106 mmol/L (98-107); CO2 29 mmol/L (21-32); CREATININE 0.7 mg/dL (0.55-1.02); GLUCOSE,RANDOM 85 mg/dL (74-106); MAGNESIUM 2.2 mg/dL (1.8-2.4); POTASSIUM 4.2 mmol/L (3.5-5.1); SGOT/AST 16 U/L (15-37); SGPT/ALT 19 U/L (12-78); SODIUM 141 mmol/L (136-145)
[2017-11-28] MEDS ORDERED: metoPROLOL SUCCINATE 25 MG TAB.SR.24H (FP) PO SCH (10:00)
--- NOTE | 2017-11-28 10:43 | PN ---
Progress Note, Physician History of Present Illness: POD#3 c-spine surgery, no current chest pain or palpitations, improving incisional neck discomfort. - Current Medication List Current Medications: Active Medications Acetaminophen (Ofirmev Injection -) 1,000 mg IVPB Q6H PRN PRN Reason: PAIN Last Admin: 11/27/17 16:18 Dose: 1,000 mg Benzocaine/Menthol (Cepacol Lozenge -) 1 each MM PRN PRN PRN Reason: SORE THROAT Docusate Sodium (Colace -) 100 mg PO TID [facility] Last Admin: 11/28/17 06:19 Dose: 100 mg Levothyroxine Sodium (Synthroid -) 50 mcg PO ACBK [facility] Last Admin: 11/28/17 06:19 Dose: 50 mcg Lisinopril (Prinivil) 40 mg PO DAILY [facility] Last Admin: 11/27/17 09:14 Dose: 40 mg Lorazepam (Ativan -) 0.5 mg PO Q24H PRN PRN Reason: ANXIETY Last Admin: 11/26/17 21:24 Dose: 0.5 mg Metoprolol Succinate (Toprol Xl -) 25 mg PO BID [facility] Montelukast Sodium (Singulair -) 10 mg PO HS [facility] Last Admin: 11/27/17 21:32 Dose: 10 mg Mupirocin (Bactroban Ointment (For Decolonization) -) 1 applic NS BID [facility] Stop: 11/30/17 21:59 Last Admin: 11/28/17 06:17 Dose: Not Given Non-Formulary Medication (Patient's Own Med) 1 each PO DAILY [facility] Last Admin: 11/27/17 09:15 Dose: 1 each Ondansetron HCl (Zofran Injection) 4 mg IVPUSH Q6H PRN PRN Reason: NAUSEA AND/OR VOMITING Oxycodone HCl (Roxicodone -) 5 mg PO Q4H PRN PRN Reason: PAIN LEVEL 4-6 Oxycodone HCl (Roxicodone -) 10 mg PO Q4H PRN PRN Reason: PAIN LEVEL 7 - 10 Polyethylene Glycol (Miralax (For Daily Use) -) 17 gm PO DAILY [facility] Last Admin: 11/27/17 09:15 Dose: 17 grams Promethazine HCl (Phenergan Injection -) 12.5 mg IVPB Q6H PRN PRN Reason: NAUSEA-FOR RESCUE AFTER 15 MIN Sertraline HCl (Zoloft -) 25 mg PO DAILY [facility] Last Admin: 11/27/17 09:14 Dose: 25 mg - Objective Vital Signs: Vital Signs Temperature 99.0 F 11/28/17 06:00 Pulse Rate 68 11/28/17 06:00 Respiratory Rate 20 11/28/17 06:00 Blood Pressure 167/79 11/28/17 06:00 O2 Sat by Pulse Oximetry (%) 100 11/27/17 21:00 Constitutional: Yes: No Distress, Calm Neck: Yes: Supple Cardiovascular: Yes: Regular Rate and Rhythm Respiratory: Yes: Regular, CTA Bilaterally Gastrointestinal: Yes: Normal Bowel Sounds, Soft Edema: No Labs: CBC, BMP 11/28/17 08:48 11/28/17 08:48 INR, PTT INR 1.00 (0.82-1.09) 11/22/17 14:25 Problem List - Problems (1) Intermittent palpitations Code(s): R00.2 - PALPITATIONS (2) Hypothyroidism Code(s): E03.9 - HYPOTHYROIDISM, UNSPECIFIED (3) Hypertension Code(s): I10 - ESSENTIAL (PRIMARY) HYPERTENSION Qualifiers: Hypertension type: essential hypertension Qualified Code(s): I10 - Essential (primary) hypertension (4) Myelopathy Code(s): G95.9 - DISEASE OF SPINAL CORD, UNSPECIFIED (5) S/P discectomy Code(s): Z98.890 - OTHER SPECIFIED POSTPROCEDURAL STATES Assessment/Plan 1. Post-operative day #3 post MOLLY C5-C6, C4-5, C6-7 discectomies, C5 & C6 corpectomies, C4, C7 partial corpectomies and C4-C7 ACDF 2. Probable diastolic LV dysfunction with class 0 NYHA classification LV failure 3. HTN, not at goal 4. 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 Hypothyroidism 6. History of palpitations 7. History of anxiety disorder PLAN: 1. Continue Lisinopril 40 qd 2. Increased Toprol XL 25 bid 3. Resume ASA 81 qd once cleared by neurosurgery 4. Pain management as per the primary team 5. DVT prophylaxis
[2017-11-28] MEDS: LISINOPRIL 20 MG TABLET (FP) PO SCH (10:44)
[2017-11-28] MEDS: POLYETHYLENE GLYCOL 3350 119 GM BTL PO SCH (10:44)
[2017-11-28] MEDS: SERTRALINE HCL 25 MG TABLET (FP) PO SCH (10:44)
--- NOTE | 2017-11-28 11:43 | PN ---
Physical Exam: SUBJECTIVE: Patient seen and examined OBJECTIVE: swallow eval, surgery follow up pending Vital Signs Period Temp Pulse Resp BP Sys/Dominguez Pulse Ox Last 24 Hr 98.0 F-99.0 F 65-70 17-20 144-180/68-90 100 GENERAL: The patient is awake, alert, and fully oriented, in no acute distress, reports mild neck pain. HEAD: Normal with no signs of trauma. EYES: PERRL, extraocular movements intact, sclera anicteric, conjunctiva clear. No ptosis. ENT: Ears normal, nares patent, oropharynx clear without exudates, moist mucous membranes. NECK:anterior neck dressing intact LUNGS: Breath sounds equal, clear to auscultation bilaterally, no wheezes, no crackles, no accessory muscle use. HEART: Regular rate and rhythm ABDOMEN: Soft, nontender, nondistended, normoactive bowel sounds, no guarding, no rebound, no hepatosplenomegaly, no masses. EXTREMITIES: 2+ pulses, warm, well-perfused, no edema. NEUROLOGICAL: Cranial nerves II through XII grossly intact. Normal speech, gait not observed. PSYCH: Normal mood, normal affect. SKIN: Warm, dry, normal turgor, no rashes or lesions noted Laboratory Results - last 24 hr 11/28/17 11/28/17 08:48 08:48 WBC 7.1 D RBC 3.88 Hgb 12.2 Hct 36.1 MCV 93.1 MCH 31.3 MCHC 33.6 RDW 14.4 Plt Count 210 MPV 7.7 Neutrophils % 74.3 Lymphocytes % 14.2 D Monocytes % 10.1 Eosinophils % 1.1 D Basophils % 0.3 Sodium 141 Potassium 4.2 Chloride 106 Carbon Dioxide 29 Anion Gap 6 L BUN 14 Creatinine 0.7 Creat Clearance w eGFR > 60 Random Glucose 85 Calcium 8.1 L Magnesium 2.2 Total Bilirubin 0.9 AST 16 ALT 19 Alkaline Phosphatase 59 Total Protein 6.0 L Albumin 3.0 L Active Medications Generic Name Dose Route Start Last Admin Trade Name Freq PRN Reason Stop Dose Admin Acetaminophen 1,000 mg 11/27/17 09:45 11/27/17 16:18 Ofirmev Injection - IVPB 1,000 mg Q6H PRN Administration PAIN Benzocaine/Menthol 1 each 11/26/17 17:53 Cepacol Lozenge - MM PRN PRN SORE THROAT Docusate Sodium 100 mg 11/27/17 14:00 11/28/17 06:19 Colace - PO 100 mg TID [facility] Administration Levothyroxine Sodium 50 mcg 11/27/17 07:00 11/28/17 06:19 Synthroid - PO 50 mcg ACBK [facility] Administration Lisinopril 40 mg 11/27/17 10:00 11/28/17 10:44 Prinivil PO 40 mg DAILY [facility] Administration Lorazepam 0.5 mg 11/26/17 18:00 11/26/17 21:24 Ativan - PO 0.5 mg Q24H PRN Administration ANXIETY Metoprolol Succinate 25 mg 11/28/17 10:00 11/28/17 10:44 Toprol Xl - PO 25 mg BID [facility] Administration Montelukast Sodium 10 mg 11/26/17 22:00 11/27/17 21:32 Singulair - PO 10 mg HS [facility] Administration Mupirocin 1 applic 11/26/17 22:00 11/28/17 10:37 Bactroban Ointment (For Decolonization) - NS 11/30/17 21:59 Not Given BID [facility] Non-Formulary Medication 1 each 11/27/17 10:00 11/28/17 10:44 Patient's Own Med PO 1 each DAILY [facility] Administration Ondansetron HCl 4 mg 11/26/17 18:00 Zofran Injection IVPUSH Q6H PRN NAUSEA AND/OR VOMITING Oxycodone HCl 5 mg 11/26/17 17:53 Roxicodone - PO Q4H PRN PAIN LEVEL 4-6 Oxycodone HCl 10 mg 11/26/17 17:53 Roxicodone - PO Q4H PRN PAIN LEVEL 7 - 10 Polyethylene Glycol 17 gm 11/27/17 10:00 11/28/17 10:44 Miralax (For Daily Use) - PO 17 grams DAILY [facility] Administration Promethazine HCl 12.5 mg 11/26/17 17:56 Phenergan Injection - IVPB Q6H PRN NAUSEA-FOR RESCUE AFTER 15 MIN Sertraline HCl 25 mg 11/27/17 10:00 11/28/17 10:44 Zoloft - PO 25 mg DAILY [facility] Administration ASSESSMENT/PLAN: Patient is a 67 year old female with a significant past medical history of hypertension, hypothyroidism, CVA (s/p TPA with hemorrhagic conversion s/p evacuation/surgery) and multiple back surgeries Patient presented to the ED on 11/22/2017 with worsening headaches, neck pain. She was found to have cervical spine stenosis and is s/p MOLLY C5-C6, C4-C5, C6-C7 discectomies, C5 & C6 corpectomy, C4-C7 partial corpectomies, C4-C7 ACDF with Dr[address] Tovar. Ortho/Surgery Cervical spine stenosis s/p MOLLY, C5-C6 corpectomies, C4 & C7 partial corpectomies, C4-C7 ACDF s/p ICU for airway observation Given Decadron 10mg IV q12h x 2 doses post-op Tylenol IV for pain control, pt has multiple allergies Incentive spirometer Full liquid diet today Swallow evaluation Surgery following Card: Hypertension, elevated Increased Toprol XL to BID On Lisinoprl 40mg daily Endo: Hypothyroidism, chornic On Synthroid Neuro: CVA s/p TPA with hemorrhagic conversion s/p evacuation Neuro following Physical therapy F.E.N. Fluids: tolerating PO Electrolytes: monitor Nutrition: advance as per surgery Prophylaxis: DVT: SCDs GI: deferred Disposition: full code
[2017-11-28] MEDS ORDERED: BISACODYL 10 MG SUPP.RECT PR ONE (13:51)
[2017-11-28] MEDS: MONTELUKAST NA 10 MG TABLET PO SCH (22:00)
[2017-11-28] MEDS: metoPROLOL SUCCINATE 25 MG TAB.SR.24H (FP) PO SCH (22:22)
[2017-11-28] MEDS: ACETAMINOPHEN 1000 MG/100 ML VIAL (NON FORMULARY) IVPB PRN (22:25)
[2017-11-29] MEDS: LEVOTHYROXINE NA 50 MCG TABLET (FP) PO SCH (06:39)
[2017-11-29] MEDS: DOCUSATE SODIUM 100 MG CAPSULE (FP) PO SCH ×3 (06:59→21:54)
[2017-11-29] MEDS: LISINOPRIL 20 MG TABLET (FP) PO SCH (08:02)
[2017-11-29] MEDS: metoPROLOL SUCCINATE 25 MG TAB.SR.24H (FP) PO SCH ×2 (08:03→21:54)
[2017-11-29] MEDS: SERTRALINE HCL 25 MG TABLET (FP) PO SCH (10:02)
[2017-11-29] MEDS: MUPIROCIN 2% TOPICAL OINTMENT FOR DECOLONIZATION NS SCH ×2 (10:02→22:16)
[2017-11-29] MEDS: POLYETHYLENE GLYCOL 3350 119 GM BTL PO SCH (10:02)
--- NOTE | 2017-11-29 11:13 | PN ---
Physical Exam: SUBJECTIVE: Patient seen and examined at the bedside. Feels well, pain is intermittent but improves with Tylenol. OBJECTIVE: Vital Signs Period Temp Pulse Resp BP Sys/Dominguez Pulse Ox Last 24 Hr 98.2 F-98.6 F 65-73 18-19 129-178/61-76 98 GENERAL: The patient is awake, alert, and fully oriented, in no acute distress, reports mild neck pain. HEAD: Normal with no signs of trauma. EYES: PERRL, extraocular movements intact, sclera anicteric, conjunctiva clear. No ptosis. ENT: Ears normal, nares patent, oropharynx clear without exudates, moist mucous membranes. NECK:anterior neck dressing intact LUNGS: Breath sounds equal, clear to auscultation bilaterally, no wheezes, no crackles, no accessory muscle use. HEART: Regular rate and rhythm ABDOMEN: Soft, nontender, nondistended, normoactive bowel sounds, no guarding, no rebound, no hepatosplenomegaly, no masses. EXTREMITIES: 2+ pulses, warm, well-perfused, no edema. NEUROLOGICAL: Cranial nerves II through XII grossly intact. Normal speech, gait not observed. PSYCH: Normal mood, normal affect. SKIN: Warm, dry, normal turgor, no rashes or lesions noted Active Medications Generic Name Dose Route Start Last Admin Trade Name Freq PRN Reason Stop Dose Admin Acetaminophen 1,000 mg 11/27/17 09:45 11/28/17 22:25 Ofirmev Injection - IVPB 1,000 mg Q6H PRN Administration PAIN Benzocaine/Menthol 1 each 11/26/17 17:53 Cepacol Lozenge - MM PRN PRN SORE THROAT Docusate Sodium 100 mg 11/27/17 14:00 11/29/17 06:59 Colace - PO Not Given TID PACO Levothyroxine Sodium 50 mcg 11/27/17 07:00 11/29/17 06:39 Synthroid - PO 50 mcg ACBK PACO Administration Lisinopril 40 mg 11/29/17 08:00 11/29/17 08:02 Prinivil PO 40 mg DAILY@0800 PACO Administration Lorazepam 0.5 mg 11/26/17 18:00 11/26/17 21:24 Ativan - PO 0.5 mg Q24H PRN Administration ANXIETY Metoprolol Succinate 25 mg 11/28/17 22:00 11/29/17 08:03 Toprol Xl - PO 25 mg BID@0800,2200 PACO Administration Montelukast Sodium 10 mg 11/26/17 22:00 11/28/17 22:00 Singulair - PO Not Given HS PACO Mupirocin 1 applic 11/26/17 22:00 11/29/17 10:02 Bactroban Ointment (For Decolonization) - NS 11/30/17 21:59 Not Given BID [facility] Non-Formulary Medication 1 each 11/27/17 10:00 11/29/17 10:02 Patient's Own Med PO 1 each DAILY PACO Administration Ondansetron HCl 4 mg 11/26/17 18:00 Zofran Injection IVPUSH Q6H PRN NAUSEA AND/OR VOMITING Oxycodone HCl 5 mg 11/26/17 17:53 Roxicodone - PO Q4H PRN PAIN LEVEL 4-6 Oxycodone HCl 10 mg 11/26/17 17:53 Roxicodone - PO Q4H PRN PAIN LEVEL 7 - 10 Polyethylene Glycol 17 gm 11/27/17 10:00 11/29/17 10:02 Miralax (For Daily Use) - PO 17 grams DAILY PACO Administration Promethazine HCl 12.5 mg 11/26/17 17:56 Phenergan Injection - IVPB Q6H PRN NAUSEA-FOR RESCUE AFTER 15 MIN Sertraline HCl 25 mg 11/27/17 10:00 11/29/17 10:02 Zoloft - PO 25 mg DAILY PACO Administration ASSESSMENT/PLAN: Patient is a 67 year old female with a significant past medical history of hypertension, hypothyroidism, CVA (s/p TPA with hemorrhagic conversion s/p evacuation/surgery) and multiple back surgeries Patient presented to the ED on 11/22/2017 with worsening headaches, neck pain. She was found to have cervical spine stenosis and is s/p MOLLY C5-C6, C4-C5, C6-C7 discectomies, C5 & C6 corpectomy, C4-C7 partial corpectomies, C4-C7 ACDF with Dr. Tovra. Ortho/Surgery Cervical spine stenosis s/p MOLLY, C5-C6 corpectomies, C4 & C7 partial corpectomies, C4-C7 ACDF s/p ICU for airway observation Given Decadron 10mg IV q12h x 2 doses post-op Tylenol IV for pain control, pt has multiple allergies, added bengay for muscular back pain Incentive spirometer dusphagia diet/chopped as per swallow eval Surgery following Card: Hypertension, improving On Lisinoprl 40mg daily, Toprol XL Endo: Hypothyroidism, chronic On Synthroid Neuro: CVA s/p TPA with hemorrhagic conversion s/p evacuation Neuro following Physical therapy F.E.N. Fluids: tolerating PO Electrolytes: monitor Nutrition: dysphagia whole Prophylaxis: DVT: SCDs GI: deferred Disposition: full code
--- NOTE | 2017-11-29 13:21 | CONSULT ---
Admitting History and Physical - Primary Care Physician PCP: Clyde Butt - Admission History of Present Illness: Per EMR: 67yow with PMHx of HTN, hypothyroidism,CVA s/p TPA with hemorrhagic conversion requiring evacuation/surgery, spinal stenosis s/p multiple back surgeries most recent about 17months ago, who presented to the ED with progressively worsening headache, neck pain radiating to her shoulders and down her arms. Imaging by Dr Tovar showed calcification on previous hardware pressing on the dura. She was scheduled for repair. Today she is s/p removal of hardware, C5-C6 corpectomies , C4 and L1fpytcye corpectomies, C4-C7 ACDF. In the OR EBL 75cc, IVF 2L and UOP 600cc Pt reports h/o anterior fusion 1 1/2 years ago, with subsequent dysphagia, coughing on PO intake, requiring esophageal dilatation. No residual dysphagia reported. 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 Cardiovascular: Yes: HTN ...LMP: 08/23/04 ...: No Musculoskeletal: Yes: Chronic low back pain Endocrine: Yes: Hypothyroidism - Smoking History Smoking history: Never smoked - Alcohol/Substance Use Hx Alcohol Use: No History - Admission Reason For Visit: DISEASE OF SPINAL CORD; NECK PAIN - Diagnostics X-ray: Report Reviewed - General Mental Status: Alert and Oriented, Awake and Alert, Able to Follow Commands Attention: Intact Ability to Follow Directions: Good Head/Neck Control: WFL - Hearing Hearing: Impaired Hearing Aide: No Speech Evaluation - Communication Primary Language: AUSTRIAN Communication: Yes: Within Normal Limits Oral Expression Ability: Yes: No Impairment - Speech Production Able to Make Needs Known: Yes: WNL Intelligibility: Yes: WNL - Speech Characteristics Voice Loudness: Normal Voice Pitch: Yes: Limited Variation (monotonous intonation) Voice Phonatory-based Quality: Yes: Normal Speech Clarity: < 100% Nasal Resonance: Normal Articulation: Yes: Precise - Language/Auditory Comprehension Follows: Yes: 2 Stage Simple Commands - Language/Verbal Expression Able to Respond to Simple Queries: Yes: WNL Able to Communicate Wants and Needs: Yes: WNL Functional Communication Status: Yes: WNL - Swallow Evaluation/Bedside Assessment Current Nutritional Intake: Full Liquids Oral Secretions: Yes: WFL Dentition: Yes: Adequate Facial Symmetry at Rest: Facial Droop Left Facial Symmetry on Retraction: Facial Droop Left Against Resistance Opening: Normal Against Resistance Closing: Normal Pucker Lips: Droops Left Smile: Droops Left Lingual Movement: Symmetric Lingual Speed of Movement: Normal Lingual Movement Strgth Against Opposition: Normal Lingual Movement Characteristics: Normal Velopharyngeal Movement: Normal Laryngeal Movement: Reduced Excursion Bolus Size: WFL Labial Seal: WFL Chewing: WFL Oral Prep Time: WFL A-P Transit: WFL Pocketing: None Timing of Swallow: Delayed Coughing/Throat Clear: No (c/o stasis) Change in Voice: No Recommendations - Speech Evaluation, Impression/Plan Impression: Pt on full fluid diet. Reports pills sticking. With trial of cracker , pt reported it sticking,needing to bring it back up and swallow again, at which time she thought it cleared. r/o aspiration/stasis - Dysphagia Impressions/Plan Dysphagia Impressions: Ongoing Evaluation *Silent aspiration: cannot be R/O at bedside Recommendations: TOPHER Rao
[2017-11-29] MEDS: ACETAMINOPHEN 1000 MG/100 ML VIAL (NON FORMULARY) IVPB PRN (16:38)
[2017-11-29] MEDS: METHYL SALICYLATE/MENTHOL OINT 30 GM TUBE TP SCH ×2 (18:27→21:54)
[2017-11-29] MEDS: MONTELUKAST NA 10 MG TABLET PO SCH (21:54)
[2017-11-30] MEDS: ACETAMINOPHEN 1000 MG/100 ML VIAL (NON FORMULARY) IVPB PRN (03:26)
[2017-11-30] MEDS: DOCUSATE SODIUM 100 MG CAPSULE (FP) PO SCH ×3 (06:14→21:14)
[2017-11-30] MEDS: LEVOTHYROXINE NA 50 MCG TABLET (FP) PO SCH (06:14)
[2017-11-30] MEDS: LORazepam 0.5 MG TABLET PO PRN (09:17)
[2017-11-30] MEDS: MUPIROCIN 2% TOPICAL OINTMENT FOR DECOLONIZATION NS SCH (09:17)
[2017-11-30] MEDS: metoPROLOL SUCCINATE 25 MG TAB.SR.24H (FP) PO SCH ×2 (09:17→21:14)
[2017-11-30] MEDS: LISINOPRIL 20 MG TABLET (FP) PO SCH (09:17)
[2017-11-30] MEDS: SERTRALINE HCL 25 MG TABLET (FP) PO SCH (09:17)
[2017-11-30] MEDS: POLYETHYLENE GLYCOL 3350 119 GM BTL PO SCH (09:18)
[2017-11-30] MEDS: METHYL SALICYLATE/MENTHOL OINT 30 GM TUBE TP SCH ×2 (09:18→21:45)
--- NOTE | 2017-11-30 09:56 | PN ---
Progress Note, Physician Chief Complaint: POD #5 C-spine surgery Post operative pain History of Present Illness: Patient was seen and examined. Awake and alert. Chart was reviewed Denies chest pain, SOB or palpitation - Current Medication List Current Medications: Active Medications Benzocaine/Menthol (Cepacol Lozenge -) 1 each MM PRN PRN PRN Reason: SORE THROAT Docusate Sodium (Colace -) 100 mg PO TID [facility] Last Admin: 11/30/17 06:14 Dose: 100 mg Levothyroxine Sodium (Synthroid -) 50 mcg PO ACBK [facility] Last Admin: 11/30/17 06:14 Dose: 50 mcg Lisinopril (Prinivil) 40 mg PO DAILY@0800 [facility] Last Admin: 11/30/17 09:17 Dose: 40 mg Lorazepam (Ativan -) 0.5 mg PO Q24H PRN PRN Reason: ANXIETY Last Admin: 11/30/17 09:17 Dose: 0.5 mg Methyl Salicylate (Boyd-Elizalde -) 1 applic TP BID [facility] Last Admin: 11/30/17 09:18 Dose: 1 applic Metoprolol Succinate (Toprol Xl -) 25 mg PO BID@0800,2200 [facility] Last Admin: 11/30/17 09:17 Dose: 25 mg Montelukast Sodium (Singulair -) 10 mg PO HS [facility] Last Admin: 11/29/17 21:54 Dose: 10 mg Mupirocin (Bactroban Ointment (For Decolonization) -) 1 applic NS BID [facility] Stop: 11/30/17 21:59 Last Admin: 11/30/17 09:17 Dose: Not Given Non-Formulary Medication (Patient's Own Med) 1 each PO DAILY [facility] Last Admin: 11/30/17 09:17 Dose: 1 each Ondansetron HCl (Zofran Injection) 4 mg IVPUSH Q6H PRN PRN Reason: NAUSEA AND/OR VOMITING Polyethylene Glycol (Miralax (For Daily Use) -) 17 gm PO DAILY [facility] Last Admin: 11/30/17 09:18 Dose: 17 grams Promethazine HCl (Phenergan Injection -) 12.5 mg IVPB Q6H PRN PRN Reason: NAUSEA-FOR RESCUE AFTER 15 MIN Sertraline HCl (Zoloft -) 25 mg PO DAILY [facility] Last Admin: 11/30/17 09:17 Dose: 25 mg - Objective Vital Signs: Vital Signs Temperature 98.8 F 11/30/17 04:00 Pulse Rate 58 L 11/30/17 04:00 Respiratory Rate 20 11/30/17 04:00 Blood Pressure 143/75 11/30/17 04:00 O2 Sat by Pulse Oximetry (%) 97 11/29/17 21:00 HENT: Yes: Atraumatic Neck: Yes: Supple Cardiovascular: Yes: Regular Rate and Rhythm, S1, S2 Respiratory: Yes: CTA Bilaterally Edema: No Labs: CBC, BMP 11/28/17 08:48 11/28/17 08:48 Problem List - Problems (1) Hypertension Code(s): I10 - ESSENTIAL (PRIMARY) HYPERTENSION Qualifiers: Hypertension type: essential hypertension Qualified Code(s): I10 - Essential (primary) hypertension (2) Hypothyroidism Code(s): E03.9 - HYPOTHYROIDISM, UNSPECIFIED (3) Neck pain Code(s): M54.2 - CERVICALGIA (4) S/P discectomy Code(s): Z98.890 - OTHER SPECIFIED POSTPROCEDURAL STATES (5) Spinal stenosis Code(s): M48.00 - SPINAL STENOSIS, SITE UNSPECIFIED Assessment/Plan 1. Post-operative day #5 post C5-C6, C4-5, C6-7 discectomy, C5 & C6 corpectomy, C4, C7 partial corpectomy 2. Probable diastolic LV dysfunction with class 0 NYHA classification LV failure 3. HTN 4. 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 Hypothyroidism 6. History of palpitations 7. History of anxiety disorder PLAN: 1. Continue Lisinopril 40 qd 2. Continue Toprol XL 25 bid 3. Resume ASA once cleared by neurosurgery 4. Pain management 5. DVT prophylaxis Further plans are to follow Vitaliy Mcgraw MD
[2017-11-30 10:39] LABS: BASO % 0.2 % (0-2.0); EOS % 1.7 % (0-4.5); HEMATOCRIT 35.4 % (32.4-45.2); HEMOGLOBIN 12.2 GM/dL (10.7-15.3); LYMPH % 16.6 % (8-40); MCH 31.9 pg (25.7-33.7); MCHC 34.4 g/dl (32.0-36.0); MEAN CELL VOLUME 92.7 fl (80-96); MEAN PLT VOLUME 7.7 fl (7.5-11.1); MONO % 10.4 % (3.8-10.2); NEUT % 71.1 % (42.8-82.8); PLATELET COUNT 241 K/MM3 (134-434); RBC 3.82 M/mm3 (3.60-5.2); RDW 14.4 % (11.6-15.6); WHITE BLOOD COUNT 5.3 K/mm3 (4.0-10.0)
[2017-11-30 11:11] LABS: ANION GAP 7 (8-16); BLOOD UREA NITROGEN 14 mg/dL (7-18); CALCIUM 8.4 mg/dL (8.5-10.1); CHLORIDE 105 mmol/L (98-107); CO2 29 mmol/L (21-32); GLUCOSE,RANDOM 109 mg/dL (74-106); MAGNESIUM 2.2 mg/dL (1.8-2.4); POTASSIUM 3.8 mmol/L (3.5-5.1); SGOT/AST 33 U/L (15-37); SGPT/ALT 40 U/L (12-78); SODIUM 141 mmol/L (136-145)
[2017-11-30 11:14] LABS: ALK PHOS 63 U/L (45-117); BILIRUBIN,TOTAL 0.8 mg/dL (0.2-1.0); CREATININE 0.9 mg/dL (0.55-1.02); TOT PROT 6.2 g/dl (6.4-8.2)
[2017-11-30] MEDS: MULTIVITAMINS (DAILY MVI) TABLET (FP) PO SCH (14:50)
--- NOTE | 2017-11-30 16:15 | PN ---
Physical Exam: SUBJECTIVE: Patient seen and examined at the bedside. Feels well today, still having some shoulder pain. Seen by Dr. Tovar Patient wants to go to rehab OBJECTIVE: Vital Signs Period Temp Pulse Resp BP Sys/Dominguez Pulse Ox Last 24 Hr 98.4 F-99.2 F 58-71 17-20 143-161/62-79 97-99 GENERAL: The patient is awake, alert, and fully oriented, in no acute distress, reports mild neck pain. HEAD: Normal with no signs of trauma. EYES: PERRL, extraocular movements intact, sclera anicteric, conjunctiva clear. No ptosis. ENT: Ears normal, nares patent, oropharynx clear without exudates, moist mucous membranes. NECK:anterior neck dressing intact LUNGS: Breath sounds equal, clear to auscultation bilaterally, no wheezes, no crackles, no accessory muscle use. HEART: Regular rate and rhythm ABDOMEN: Soft, nontender, nondistended, normoactive bowel sounds, no guarding, no rebound, no hepatosplenomegaly, no masses. EXTREMITIES: 2+ pulses, warm, well-perfused, no edema. NEUROLOGICAL: Cranial nerves II through XII grossly intact. Normal speech, gait not observed. PSYCH: Normal mood, normal affect. SKIN: Warm, dry, normal turgor, no rashes or lesions noted Laboratory Results - last 24 hr 11/30/17 11/30/17 10:00 10:00 WBC 5.3 RBC 3.82 Hgb 12.2 Hct 35.4 MCV 92.7 MCH 31.9 MCHC 34.4 RDW 14.4 Plt Count 241 MPV 7.7 Neutrophils % 71.1 Lymphocytes % 16.6 Monocytes % 10.4 H Eosinophils % 1.7 Basophils % 0.2 Sodium 141 Potassium 3.8 Chloride 105 Carbon Dioxide 29 Anion Gap 7 L BUN 14 Creatinine 0.9 Creat Clearance w eGFR > 60 Random Glucose 109 H Calcium 8.4 L Magnesium 2.2 Total Bilirubin 0.8 AST 33 ALT 40 Alkaline Phosphatase 63 Total Protein 6.2 L Albumin 3.0 L Active Medications Generic Name Dose Route Start Last Admin Trade Name Freq PRN Reason Stop Dose Admin Benzocaine/Menthol 1 each 11/26/17 17:53 Cepacol Lozenge - MM PRN PRN SORE THROAT Docusate Sodium 100 mg 11/27/17 14:00 11/30/17 14:49 Colace - PO 100 mg TID PACO Administration Levothyroxine Sodium 50 mcg 11/27/17 07:00 11/30/17 06:14 Synthroid - PO 50 mcg ACBK PACO Administration Lisinopril 40 mg 11/29/17 08:00 11/30/17 09:17 Prinivil PO 40 mg DAILY@0800 PACO Administration Lorazepam 0.5 mg 11/26/17 18:00 11/30/17 09:17 Ativan - PO 0.5 mg Q24H PRN Administration ANXIETY Methyl Salicylate 1 applic 11/29/17 17:45 11/30/17 09:18 Boyd-Elizalde - TP 1 applic BID [facility]O Administration Metoprolol Succinate 25 mg 11/28/17 22:00 11/30/17 09:17 Toprol Xl - PO 25 mg BID@0800,2200 [facility]O Administration Montelukast Sodium 10 mg 11/26/17 22:00 11/29/17 21:54 Singulair - PO 10 mg HS PACO Administration Multivitamins/Minerals/Vitamin C 1 tab 11/30/17 14:15 11/30/17 14:50 Tab-A-Vit - PO 1 tab DAILY [facility]O Administration Mupirocin 1 applic 11/26/17 22:00 11/30/17 09:17 Bactroban Ointment (For Decolonization) - NS 11/30/17 21:59 Not Given BID [facility] Non-Formulary Medication 1 each 11/27/17 10:00 11/30/17 09:17 Patient's Own Med PO 1 each DAILY [facility]O Administration Ondansetron HCl 4 mg 11/26/17 18:00 Zofran Injection IVPUSH Q6H PRN NAUSEA AND/OR VOMITING Polyethylene Glycol 17 gm 11/27/17 10:00 11/30/17 09:18 Miralax (For Daily Use) - PO 17 grams DAILY [facility] Administration Promethazine HCl 12.5 mg 11/26/17 17:56 Phenergan Injection - IVPB Q6H PRN NAUSEA-FOR RESCUE AFTER 15 MIN Sertraline HCl 25 mg 11/27/17 10:00 11/30/17 09:17 Zoloft - PO 25 mg DAILY [facility]O Administration ASSESSMENT/PLAN: Patient is a 67 year old female with a significant past medical history of hypertension, hypothyroidism, CVA (s/p TPA with hemorrhagic conversion s/p evacuation/surgery) and multiple back surgeries Patient presented to the ED on 11/22/2017 with worsening headaches, neck pain. She was found to have cervical spine stenosis and is s/p MOLLY C5-C6, C4-C5, C6-C7 discectomies, C5 & C6 corpectomy, C4-C7 partial corpectomies, C4-C7 ACD[address] Dr[address] Tovar. Ortho/Surgery Cervical spine stenosis s/p MOLLY, C5-C6 corpectomies, C4 & C7 partial corpectomies, C4-C7 ACDF s/p ICU for airway observation Given Decadron 10mg IV q12h x 2 doses post-op Tylenol PO for pain control, pt has multiple allergies, added bengay for muscular back pain Incentive spirometer Now on soft diet, pt not tolerating chopped diet Surgery following, discussed POC with surgery Patient to have dressing changed with surgery as an outpatient Card: Hypertension, improving On Lisinoprl 40mg daily, Toprol XL Cardiology following Endo: Hypothyroidism, chronic On Synthroid Neuro: CVA s/p TPA with hemorrhagic conversion s/p evacuation Neuro following Physical therapy F.E.N. Fluids: tolerating PO Electrolytes: monitor Nutrition: dysphagia whole Prophylaxis: DVT: SCDs GI: deferred Disposition: full code
[2017-11-30] MEDS: MONTELUKAST NA 10 MG TABLET PO SCH (21:14)
[2017-11-30] MEDS: ACETAMINOPHEN 325 MG TABLET (FP) PO PRN (21:15)
[2017-12-01] MEDS: DOCUSATE SODIUM 100 MG CAPSULE (FP) PO SCH ×3 (06:32→21:34)
[2017-12-01] MEDS: LEVOTHYROXINE NA 50 MCG TABLET (FP) PO SCH (06:32)
[2017-12-01] MEDS: metoPROLOL SUCCINATE 25 MG TAB.SR.24H (FP) PO SCH (07:50)
[2017-12-01] MEDS: LISINOPRIL 20 MG TABLET (FP) PO SCH (07:50)
--- NOTE | 2017-12-01 10:16 | PN ---
Progress Note (short form) - Note Progress Note: Chief Complaint: Events noted, notes reviewed, complaining of bilateral shoulder discomfort, denies any chest pain or dyspnea, denies palpitations History of Present Illness: Seen and examined on med/surg floor. Events noted, notes reviewed, complaining of bilateral shoulder discomfort, denies any chest pain or dyspnea, denies palpitations - Current Medication List Current Medications Acetaminophen (Tylenol -) 650 mg PO Q6H PRN PRN Reason: PAIN LEVEL 7 - 10 Last Admin: 11/30/17 21:15 Dose: 650 mg Benzocaine/Menthol (Cepacol Lozenge -) 1 each MM PRN PRN PRN Reason: SORE THROAT Docusate Sodium (Colace -) 100 mg PO TID [facility] Last Admin: 12/01/17 06:32 Dose: 100 mg Levothyroxine Sodium (Synthroid -) 50 mcg PO ACBK [facility] Last Admin: 12/01/17 06:32 Dose: 50 mcg Lisinopril (Prinivil) 40 mg PO DAILY@0800 [facility] Last Admin: 12/01/17 07:50 Dose: 40 mg Lorazepam (Ativan -) 0.5 mg PO Q24H PRN PRN Reason: ANXIETY Last Admin: 11/30/17 09:17 Dose: 0.5 mg Methyl Salicylate (Boyd-Elizalde -) 1 applic TP BID [facility] Last Admin: 11/30/17 21:45 Dose: 1 applic Metoprolol Succinate (Toprol Xl -) 25 mg PO BID@0800,2200 [facility] Last Admin: 12/01/17 07:50 Dose: 25 mg Montelukast Sodium (Singulair -) 10 mg PO HS [facility] Last Admin: 11/30/17 21:14 Dose: 10 mg Multivitamins/Minerals/Vitamin C (Tab-A-Vit -) 1 tab PO DAILY [facility] Last Admin: 11/30/17 14:50 Dose: 1 tab Non-Formulary Medication (Patient's Own Med) 1 each PO DAILY [facility] Last Admin: 11/30/17 09:17 Dose: 1 each Ondansetron HCl (Zofran Injection) 4 mg IVPUSH Q6H PRN PRN Reason: NAUSEA AND/OR VOMITING Polyethylene Glycol (Miralax (For Daily Use) -) 17 gm PO DAILY [facility] Last Admin: 11/30/17 09:18 Dose: Not Given Promethazine HCl (Phenergan Injection -) 12.5 mg IVPB Q6H PRN PRN Reason: NAUSEA-FOR RESCUE AFTER 15 MIN Sertraline HCl (Zoloft -) 25 mg PO DAILY [facility] Last Admin: 11/30/17 09:17 Dose: 25 mg - Objective Vital Signs: Last Vital Signs Temp Pulse Resp BP Pulse Ox 98.2 F 56 L 20 158/76 99 12/01/17 06:04 12/01/17 06:04 12/01/17 06:04 12/01/17 06:04 11/30/17 21:00 Intake & Output 11/28/17 11/29/17 11/30/17 12/01/17 23:59 23:59 23:59 23:59 Intake Total 030 409 7062 500 Balance 793 112 3293 500 Weight 130 lb 8 oz 124 lb 14.4 oz 124 lb 8 oz 127 lb 9 oz Constitutional: No Distress, Anxious Neck: Negative JVD Cardiovascular: S1 S2 Regular Rate and Rhythm No Murmurs Respiratory: Clear Bilaterally Gastrointestinal: soft Benign Normal Bowel Sounds Ext: No Edema Labs: CBC, BMP 11/30/17 10:00 11/30/17 10:00 Hepatic Panel Total Bilirubin 0.8 mg/dL (0.2-1.0) 11/30/17 10:00 AST 33 U/L (15-37) 11/30/17 10:00 ALT 40 U/L (12-78) 11/30/17 10:00 Alkaline Phosphatase 63 U/L (45-117) 11/30/17 10:00 Albumin 3.0 g/dl (3.4-5.0) L 11/30/17 10:00 INR, PTT INR 1.00 (0.82-1.09) 11/22/17 14:25 Assessment/Plan ASSESSMENT: 1. Post-operative day #6 post MOLLY C5-C6, C4-5, C6-7 discectomies, C5 & C6 corpectomies, C4, C7 partial corpectomies and C4-C7 ACDF 2. Probable diastolic LV dysfunction with class 0 NYHA classification LV failure 3. HTN, not at goal 4. 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 Hypothyroidism 6. History of palpitations 7. History of anxiety disorder PLAN: 1. Continue Lisinopril 2. Continue Toprol XL and titrate dosage as needed and as tolerated 3. Recommend resumption of ASA once cleared by neurosurgery 4. Pain management as per the primary team Mari Lopez MD
[2017-12-01 10:39] LABS: BASO % 0.5 % (0-2.0); EOS % 2.9 % (0-4.5); HEMATOCRIT 35.1 % (32.4-45.2); HEMOGLOBIN 11.9 GM/dL (10.7-15.3); LYMPH % 18.6 % (8-40); MCH 31.6 pg (25.7-33.7); MEAN CELL VOLUME 93.1 fl (80-96); MEAN PLT VOLUME 7.3 fl (7.5-11.1); MONO % 15.2 % (3.8-10.2); NEUT % 62.8 % (42.8-82.8); PLATELET COUNT 265 K/MM3 (134-434); RBC 3.77 M/mm3 (3.60-5.2); RDW 14.4 % (11.6-15.6); WHITE BLOOD COUNT 5.3 K/mm3 (4.0-10.0)
[2017-12-01] MEDS: POLYETHYLENE GLYCOL 3350 119 GM BTL PO SCH (10:53)
[2017-12-01] MEDS: METHYL SALICYLATE/MENTHOL OINT 30 GM TUBE TP SCH ×2 (10:53→21:35)
[2017-12-01] MEDS: MULTIVITAMINS (DAILY MVI) TABLET (FP) PO SCH (10:54)
[2017-12-01] MEDS: SERTRALINE HCL 25 MG TABLET (FP) PO SCH (10:54)
[2017-12-01 11:00] LABS: ALBUMIN 2.9 g/dl (3.4-5.0); ANION GAP 6 (8-16); BILIRUBIN,TOTAL 0.7 mg/dL (0.2-1.0); BLOOD UREA NITROGEN 12 mg/dL (7-18); CALCIUM 8.4 mg/dL (8.5-10.1); CHLORIDE 104 mmol/L (98-107); CO2 31 mmol/L (21-32); CREATININE 0.8 mg/dL (0.55-1.02); GLUCOSE,RANDOM 82 mg/dL (74-106); MAGNESIUM 2.2 mg/dL (1.8-2.4); POTASSIUM 4.1 mmol/L (3.5-5.1); SGOT/AST 24 U/L (15-37); SGPT/ALT 37 U/L (12-78); SODIUM 141 mmol/L (136-145)
[2017-12-01 11:05] LABS: ALK PHOS 60 U/L (45-117)
[2017-12-01] MEDS ORDERED: metoPROLOL SUCCINATE 25 MG TAB.SR.24H (FP) PO ONE (11:45)
[2017-12-01] MEDS: ACETAMINOPHEN 325 MG TABLET (FP) PO PRN ×2 (12:06→21:34)
--- NOTE | 2017-12-01 14:06 | PN ---
Physical Exam: SUBJECTIVE: Patient seen and examined at the bedside. Patient wants to go to rehab, feels weak. OBJECTIVE: BP remains elevated this morning, increased Toprol XL Vital Signs Period Temp Pulse Resp BP Sys/Dominguez Pulse Ox Last 24 Hr 98.2 F-98.8 F 56-68 17-21 148-175/72-79 99-99 GENERAL: The patient is awake, alert, and fully oriented, in no acute distress, reports mild neck pain. HEAD: Normal with no signs of trauma. EYES: PERRL, extraocular movements intact, sclera anicteric, conjunctiva clear. No ptosis. ENT: Ears normal, nares patent, oropharynx clear without exudates, moist mucous membranes. NECK:anterior neck dressing intact LUNGS: Breath sounds equal, clear to auscultation bilaterally, no wheezes, no crackles, no accessory muscle use. HEART: Regular rate and rhythm ABDOMEN: Soft, nontender, nondistended, normoactive bowel sounds, no guarding, no rebound, no hepatosplenomegaly, no masses. EXTREMITIES: 2+ pulses, warm, well-perfused, no edema. NEUROLOGICAL: Normal speech, gait not observed. PSYCH: Normal mood, normal affect. Laboratory Results - last 24 hr 12/01/17 12/01/17 10:00 10:00 WBC 5.3 RBC 3.77 Hgb 11.9 Hct 35.1 MCV 93.1 MCH 31.6 MCHC 34.0 RDW 14.4 Plt Count 265 MPV 7.3 L Neutrophils % 62.8 Lymphocytes % 18.6 Monocytes % 15.2 H Eosinophils % 2.9 Basophils % 0.5 Sodium 141 Potassium 4.1 Chloride 104 Carbon Dioxide 31 Anion Gap 6 L BUN 12 Creatinine 0.8 Creat Clearance w eGFR > 60 Random Glucose 82 Calcium 8.4 L Magnesium 2.2 Total Bilirubin 0.7 AST 24 ALT 37 Alkaline Phosphatase 60 Total Protein 6.0 L Albumin 2.9 L Active Medications Generic Name Dose Route Start Last Admin Trade Name Freq PRN Reason Stop Dose Admin Acetaminophen 650 mg 11/30/17 16:16 12/01/17 12:06 Tylenol - PO 650 mg Q6H PRN Administration PAIN LEVEL 7 - 10 Benzocaine/Menthol 1 each 11/26/17 17:53 Cepacol Lozenge - MM PRN PRN SORE THROAT Docusate Sodium 100 mg 05/16/18 14:00 12/01/17 06:32 Colace - PO 100 mg TID PACO Administration Levothyroxine Sodium 50 mcg 11/27/17 07:00 12/01/17 06:32 Synthroid - PO 50 mcg ACBK PACO Administration Lisinopril 40 mg 11/29/17 08:00 12/01/17 07:50 Prinivil PO 40 mg DAILY@0800 PACO Administration Lorazepam 0.5 mg 11/26/17 18:00 11/30/17 09:17 Ativan - PO 0.5 mg Q24H PRN Administration ANXIETY Methyl Salicylate 1 applic 11/29/17 17:45 12/01/17 10:53 Boyd-Elizalde - TP 1 applic BID PACO Administration Metoprolol Succinate 50 mg 12/01/17 22:00 Toprol Xl - PO BID@0800,2200 PACO Montelukast Sodium 10 mg 11/26/17 22:00 11/30/17 21:14 Singulair - PO 10 mg HS PACO Administration Multivitamins/Minerals/Vitamin C 1 tab 11/30/17 14:15 12/01/17 10:54 Tab-A-Vit - PO 1 tab DAILY PACO Administration Non-Formulary Medication 1 each 11/27/17 10:00 12/01/17 10:54 Patient's Own Med PO 1 each DAILY PACO Administration Ondansetron HCl 4 mg 11/26/17 18:00 Zofran Injection IVPUSH Q6H PRN NAUSEA AND/OR VOMITING Polyethylene Glycol 17 gm 11/27/17 10:00 12/01/17 10:53 Miralax (For Daily Use) - PO Not Given DAILY PACO Promethazine HCl 12.5 mg 11/26/17 17:56 Phenergan Injection - IVPB Q6H PRN NAUSEA-FOR RESCUE AFTER 15 MIN Sertraline HCl 25 mg 11/27/17 10:00 12/01/17 10:54 Zoloft - PO 25 mg DAILY PACO Administration ASSESSMENT/PLAN: Patient is a 67 year old female with a significant past medical history of hypertension, hypothyroidism, CVA (s/p TPA with hemorrhagic conversion s/p evacuation/surgery) and multiple back surgeries Patient presented to the ED on 11/22/2017 with worsening headaches, neck pain. She was found to have cervical spine stenosis and is s/p MOLLY C5-C6, C4-C5, C6-C7 discectomies, C5 & C6 corpectomy, C4-C7 partial corpectomies, C4-C7 ACDF with Dr. Tovar. Ortho/Surgery Cervical spine stenosis s/p MOLLY, C5-C6 corpectomies, C4 & C7 partial corpectomies, C4-C7 ACDF s/p ICU for airway observation Given Decadron 10mg IV q12h x 2 doses post-op Tylenol IV for pain control, pt has multiple allergies, added bengay for muscular back pain Incentive spirometer Tolerating soft diet Surgery following Card: Hypertension, elevated today Increased Metoprolol, on Lisinoprl 40mg daily Endo: Hypothyroidism, chronic On Synthroid Neuro: CVA s/p TPA with hemorrhagic conversion s/p evacuation Neuro following Physical therapy F.E.N. Fluids: tolerating PO Electrolytes: monitor Nutrition: soft diet Prophylaxis: DVT: SCDs GI: deferred Disposition: full code Visit type - Emergency Visit Emergency Visit: Yes ED Registration Date: 11/22/17 Care time: The patient presented to the Emergency Department on the above date and was hospitalized for further evaluation of their emergent condition. - New Patient This patient is new to me today: No - Critical Care Critical Care patient: No - Discharge Referral Referred to [facility] Med P.C.: No
[2017-12-01] MEDS: MONTELUKAST NA 10 MG TABLET PO SCH (21:34)
[2017-12-02] MEDS: DOCUSATE SODIUM 100 MG CAPSULE (FP) PO SCH ×2 (06:16→15:15)
[2017-12-02] MEDS: LEVOTHYROXINE NA 50 MCG TABLET (FP) PO SCH (06:16)
[2017-12-02 08:41] VITALS: BP 139/78
[2017-12-02] MEDS ORDERED: PT OWN MED DRAWER 7, Y5N ONE ×2 (08:50→16:24)
[2017-12-02] MEDS: SERTRALINE HCL 25 MG TABLET (FP) PO SCH (08:55)
[2017-12-02] MEDS: LISINOPRIL 20 MG TABLET (FP) PO SCH (08:55)
--- NOTE | 2017-12-02 08:55 | DS ---
Physical Exam: SUBJECTIVE: Patient seen and examined at the bedside. Feels well, in no acute distress. Wants to go to rehab OBJECTIVE: Discharge planning to rehab BP improved with uptitration of Toprol s/p Post op C-spine surgery Vital Signs Period Temp Pulse Resp BP Sys/Dominguez Pulse Ox Last 24 Hr 98.4 F-98.8 F 60-77 17-20 139-175/72-78 98-99 PHYSICAL EXAM GENERAL: The patient is awake, alert, and fully oriented, in no acute distress, reports mild neck pain. HEAD: Normal with no signs of trauma. EYES: PERRL, extraocular movements intact, sclera anicteric, conjunctiva clear. No ptosis. ENT: Ears normal, nares patent, oropharynx clear without exudates, moist mucous membranes. NECK:anterior neck dressing intact LUNGS: Breath sounds equal, clear to auscultation bilaterally, no wheezes, no crackles, no accessory muscle use. HEART: Regular rate and rhythm ABDOMEN: Soft, nontender, nondistended, normoactive bowel sounds, no guarding, no rebound, no hepatosplenomegaly, no masses. EXTREMITIES: 2+ pulses, warm, well-perfused, no edema. NEUROLOGICAL: Normal speech, gait not observed. PSYCH: Normal mood, normal affect. Laboratory Results - last 24 hr 12/01/17 12/01/17 10:00 10:00 WBC 5.3 RBC 3.77 Hgb 11.9 Hct 35.1 MCV 93.1 MCH 31.6 MCHC 34.0 RDW 14.4 Plt Count 265 MPV 7.3 L Neutrophils % 62.8 Lymphocytes % 18.6 Monocytes % 15.2 H Eosinophils % 2.9 Basophils % 0.5 Sodium 141 Potassium 4.1 Chloride 104 Carbon Dioxide 31 Anion Gap 6 L BUN 12 Creatinine 0.8 Creat Clearance w eGFR > 60 Random Glucose 82 Calcium 8.4 L Magnesium 2.2 Total Bilirubin 0.7 AST 24 ALT 37 Alkaline Phosphatase 60 Total Protein 6.0 L Albumin 2.9 L HOSPITAL COURSE: Date of Admission:11/22/17 Date of Discharge: 12/02/17 Subsequent Hospital Course/Progress Note/Discharge Summary by a/p: Patient is a 67 year old female with a significant past medical history of hypertension, hypothyroidism, CVA (s/p TPA with hemorrhagic conversion s/p evacuation/surgery) and multiple back surgeries Patient presented to the ED on 11/22/2017 with worsening headaches, neck pain. She was found to have cervical spine stenosis and is s/p MOLLY C5-C6, C4-C5, C6-C7 discectomies, C5 & C6 corpectomy, C4-C7 partial corpectomies, C4-C7 ACDF [address] Tovar. Ortho/Surgery Cervical spine stenosis s/p MOLLY, C5-C6 corpectomies, C4 & C7 partial corpectomies, C4-C7 ACDF s/p ICU for airway observation Given Decadron 10mg IV q12h x 2 doses post-op Tylenol IV for pain control, pt has multiple allergies, added bengay for muscular back pain Incentive spirometer Tolerating soft diet As per Dr. Tovar, dressing 10 days post surgery Card: Hypertension, controlled Metoprolol 50mg BID, on Lisinoprl 40mg daily Endo: Hypothyroidism, chronic On Synthroid Neuro: CVA s/p TPA with hemorrhagic conversion s/p evacuation Neuro following Physical therapy Disposition: full code Minutes to complete discharge: 60 Discharge Summary Reason For Visit: DISEASE OF SPINAL CORD; NECK PAIN Current Active Problems Hypertension (Acute) Hypothyroidism (Acute) Intermittent palpitations (Acute) Myelopathy (Acute) Neck pain (Acute) Pre-operative cardiovascular examination (Acute) S/P discectomy (Acute) Spinal stenosis (Acute) Condition: Improved - Instructions Diet, Activity, Other Instructions: Please return to the emergency department with any new or worsening symptoms or concerns. Please follow up with your primary care physician within 72 hours. Do not resume your Aspirin 81mg unless you are cleared by the neurosurgeon, Dr. Tovar. Please note that your blood pressure was elevated during your hospitalization and your Toprol XL was increased to Toprol 50mg twice per day. Continue Lisinopril 40mg daily also. Please follow up with the quality assurance monitor within 2 weeks after discharge for close monitoring of your blood pressure. You will be sent to [facility] on discharge. Please call me with any questions that you may have [facility] @ [facility] [phone] [facility] Referrals: ON STAFF,NOT [Primary Care Provider] - Aldo Tovar MD [Staff Physician] - Disposition: [facility] - Home Medications Comprehensive Discharge Medication List: Ambulatory Orders Aspirin [ASA -] 81 mg PO DAILY 11/22/17 Famotidine [Pepcid -] 40 mg PO DAILY 11/22/17 Fluticasone Prop 0.05% Nasal [Flonase -] 1 - 2 spray NS DAILY 11/22/17 LORazepam [Ativan] 0.5 mg PO DAILY 11/22/17 Levothyroxine [Synthroid -] 50 mcg PO DAILY 11/22/17 Lisinopril [Prinivil -] 40 mg PO DAILY 11/22/17 Metoprolol Tartrate 25 mg PO DAILY 11/22/17 Montelukast Sodium [Singulair] 10 mg PO DAILY 11/22/17 Sertraline HCl [Zoloft] 25 mg PO DAILY 11/22/17 This patient is new to me today: No Emergency Visit: Yes ED Registration Date: 11/22/17 Care time: The patient presented to the Emergency Department on the above date and was hospitalized for further evaluation of their emergent condition. Critical Care patient: No - Discharge Referral Referred to [facility] Med P.C.: No
[2017-12-02] MEDS: MULTIVITAMINS (DAILY MVI) TABLET (FP) PO SCH (08:56)
[2017-12-02] MEDS: POLYETHYLENE GLYCOL 3350 119 GM BTL PO SCH (08:58)
[2017-12-02] MEDS: METHYL SALICYLATE/MENTHOL OINT 30 GM TUBE TP SCH (09:02)
[2017-12-02 11:20] LABS: BASO % 0.6 % (0-2.0); EOS % 2.3 % (0-4.5); HEMATOCRIT 33.3 % (32.4-45.2); HEMOGLOBIN 11.4 GM/dL (10.7-15.3); LYMPH % 14.1 % (8-40); MCH 31.6 pg (25.7-33.7); MCHC 34.1 g/dl (32.0-36.0); MEAN CELL VOLUME 92.5 fl (80-96); MEAN PLT VOLUME 7.2 fl (7.5-11.1); PLATELET COUNT 265 K/MM3 (134-434); RDW 14.5 % (11.6-15.6); WHITE BLOOD COUNT 6.5 K/mm3 (4.0-10.0)
[2017-12-02 11:31] LABS: ALBUMIN 2.9 g/dl (3.4-5.0); ANION GAP 6 (8-16); BILIRUBIN,TOTAL 0.7 mg/dL (0.2-1.0); BLOOD UREA NITROGEN 13 mg/dL (7-18); CALCIUM 8.1 mg/dL (8.5-10.1); CHLORIDE 108 mmol/L (98-107); CO2 27 mmol/L (21-32); CREATININE 0.8 mg/dL (0.55-1.02); GLUCOSE,RANDOM 99 mg/dL (74-106); MAGNESIUM 2.3 mg/dL (1.8-2.4); SGOT/AST 17 U/L (15-37); SGPT/ALT 30 U/L (12-78); SODIUM 141 mmol/L (136-145)
[2017-12-02 11:33] LABS: ALK PHOS 60 U/L (45-117); TOT PROT 6.1 g/dl (6.4-8.2)
--- NOTE | 2017-12-02 11:39 | PN ---
Progress Note, IT SECURITY CONSULTING DIRECTOR - Note Progress Note: Selected Entries 12/01/17 12/01/17 12/01/17 06:04 10:43 14:00 Breakfast 25% Lunch 25% Supper Temperature 98.2 F 98.6 F 98.5 F 12/01/17 12/01/17 12/02/17 18:00 22:00 06:00 Breakfast Lunch Supper 50% Temperature 98.8 F 98.7 F 98.7 F 12/02/17 12/02/17 08:15 10:15 Breakfast 50% Lunch Supper Temperature 98.4 F Laboratory Tests 11/30/17 12/01/17 10:00 10:00 WBC 5.3 5.3 Pt on soft diet/thin liquids. Reviewed compensatory strategies to reduce pharyngeal stasis. Effortful swallow , multiple swallow, alternate solid with liquid. Pt reports doing well. Pills still stick intermittently, requiring increased water intake, before and after tking the pill, to assist in passage.
--- NOTE | 2017-12-02 12:39 | PN ---
Progress Note, Physician Chief Complaint: Post op C-spine surgery Still with intermittent pain at the site of surgery History of Present Illness: Patient was seen and examined. Awake and alert. Chart was reviewed Denies chest pain, SOB or palpitation - Current Medication List Current Medications: Active Medications Acetaminophen (Tylenol -) 650 mg PO Q6H PRN PRN Reason: PAIN LEVEL 7 - 10 Last Admin: 12/01/17 21:34 Dose: 650 mg Benzocaine/Menthol (Cepacol Lozenge -) 1 each MM PRN PRN PRN Reason: SORE THROAT Docusate Sodium (Colace -) 100 mg PO TID [facility] Last Admin: 12/02/17 06:16 Dose: 100 mg Levothyroxine Sodium (Synthroid -) 50 mcg PO ACBK [facility] Last Admin: 12/02/17 06:16 Dose: 50 mcg Lisinopril (Prinivil) 40 mg PO DAILY@0800 [facility] Last Admin: 12/02/17 08:55 Dose: 40 mg Lorazepam (Ativan -) 0.5 mg PO Q24H PRN PRN Reason: ANXIETY Last Admin: 11/30/17 09:17 Dose: 0.5 mg Methyl Salicylate (Boyd-Elizalde -) 1 applic TP BID [facility] Last Admin: 12/02/17 09:02 Dose: 1 applic Metoprolol Succinate (Toprol Xl -) 50 mg PO BID@0800,2200 [facility] Last Admin: 12/02/17 08:55 Dose: 50 mg Montelukast Sodium (Singulair -) 10 mg PO HS [facility] Last Admin: 12/01/17 21:34 Dose: 10 mg Multivitamins/Minerals/Vitamin C (Tab-A-Vit -) 1 tab PO DAILY [facility] Last Admin: 12/02/17 08:56 Dose: 1 tab Non-Formulary Medication (Patient's Own Med) 1 each PO DAILY [facility] Last Admin: 12/02/17 08:56 Dose: 1 each Ondansetron HCl (Zofran Injection) 4 mg IVPUSH Q6H PRN PRN Reason: NAUSEA AND/OR VOMITING Polyethylene Glycol (Miralax (For Daily Use) -) 17 gm PO DAILY [facility] Last Admin: 12/02/17 08:58 Dose: 17 grams Promethazine HCl (Phenergan Injection -) 12.5 mg IVPB Q6H PRN PRN Reason: NAUSEA-FOR RESCUE AFTER 15 MIN Sertraline HCl (Zoloft -) 25 mg PO DAILY PACO Last Admin: 12/02/17 08:55 Dose: 25 mg - Objective Vital Signs: Vital Signs Temperature 98.4 F 12/02/17 08:15 Pulse Rate 77 12/02/17 08:15 Respiratory Rate 18 12/02/17 08:15 Blood Pressure 139/78 12/02/17 08:15 O2 Sat by Pulse Oximetry (%) 98 12/01/17 21:00 Neck: Yes: Supple Cardiovascular: Yes: Regular Rate and Rhythm, S1, S2 Respiratory: Yes: CTA Bilaterally Gastrointestinal: Yes: Normal Bowel Sounds, Soft. No: Tenderness Edema: No Labs: CBC, BMP 12/02/17 10:45 12/02/17 10:45 Problem List - Problems (1) Hypertension Code(s): I10 - ESSENTIAL (PRIMARY) HYPERTENSION Qualifiers: Hypertension type: essential hypertension Qualified Code(s): I10 - Essential (primary) hypertension (2) Hypothyroidism Code(s): E03.9 - HYPOTHYROIDISM, UNSPECIFIED Qualifiers: Hypothyroidism type: unspecified Qualified Code(s): E03.9 - Hypothyroidism , unspecified (3) Neck pain Code(s): M54.2 - CERVICALGIA (4) S/P discectomy Code(s): Z98.890 - OTHER SPECIFIED POSTPROCEDURAL STATES (5) Spinal stenosis Code(s): M48.00 - SPINAL STENOSIS, SITE UNSPECIFIED Qualifiers: Spinal region: unspecified Qualified Code(s): M48.00 - Spinal stenosis, site unspecified Assessment/Plan 1. Post C5-C6, C4-5, C6-7 discectomy, C5 & C6 corpectomy, C4, C7 partial corpectomy 2. Probable diastolic LV dysfunction with class 0 NYHA classification LV failure 3. HTN 4. 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 Hypothyroidism 6. History of palpitations 7. History of anxiety disorder PLAN: 1. Continue Lisinopril 40 qd 2. Continue Toprol XL 25 bid 3. Resume ASA once cleared by neurosurgery 4. Pain management 5. DVT prophylaxis Further plans are to follow. Discharge planning Vitaliy Mcgraw MD
[2017-12-02 13:43] VITALS: PULSE 63; TEMP 98.3
[2017-12-02] MEDS: ACETAMINOPHEN 325 MG TABLET (FP) PO PRN (13:44)
== END 2017-12-02 16:43 | DRG 473 ==
LOC: JER 13:22 → JERBED 17:24 → J5S 20:08 → JICU 11-25 17:20 → J6S 11-27 10:51
PROVIDERS: ADMIT Internal Medicine; ATTEND Nurse Practitioner Family
PROC: 0RB30ZZ Excision of Cervical Vertebral Disc, Open Approach (ICD-10-PCS; 2017-11-25)
PROC: 0PB30ZZ Excision of Cervical Vertebra, Open Approach (ICD-10-PCS; 2017-11-25)
PROC: 00JV0ZZ Inspection of Spinal Cord, Open Approach (ICD-10-PCS; 2017-11-25)
PROC: 0RP10JZ Removal of Synthetic Substitute from Cervical Vertebral Joint, Open Approach (ICD-10-PCS; 2017-11-25)
PROC: 0RG20A0 Fusion of 2 or more Cervical Vertebral Joints with Interbody Fusion Device, Anterior Approach, Anterior Column, Open Approach (ICD-10-PCS; principal; 2017-11-25 17:30)
DX: M48.02 Spinal stenosis, cervical region (principal); I10 Essential (primary) hypertension; E03.9 Hypothyroidism, unspecified; F41.9 Anxiety disorder, unspecified; Z86.73 Personal history of transient ischemic attack (TIA), and cerebral infarction without residual deficits; R00.2 Palpitations
CPT/HCPCS: 36415; 71045-TC-FY; 74230-TC-FY; 76000-TC-FY; 80048; 80053; 81003; 81015; 82550; 83735; 84100; 84484; 85025; 85027; 85610; 85730; 86850; 86870; 86900; 86901; 86902; 88300-TC; 88304-TC; 92611-GN; 93005; 93010; 94010; 94760; 97116-GP; 97161-GP; 99284-25; J0131; J1100

== ENCOUNTER 2021-10-09 18:44 | Emergency (ER) | payer OTHER ==
[2021-10-09 19:40] VITALS: TEMP 98.4; BMI 25.2
[2021-10-09 21:37] LABS: BASO % 0.7 % (0-2.0); EOS % 2.2 % (0-4.5); HEMATOCRIT 36.5 % (32.4-45.2); HEMOGLOBIN 12.8 GM/dL (10.7-15.3); LYMPH % 30.5 % (8-40); MCH 31.9 pg (25.7-33.7); MCHC 34.9 g/dl (32.0-36.0); MEAN CELL VOLUME 91.2 fl (80-96); MEAN PLT VOLUME 7.7 fl (7.5-11.1); MONO % 13.9 % (3.8-10.2); NEUT % 52.7 % (42.8-82.8); PLATELET COUNT 230 10^3/uL (134-434); RBC 4.01 M/mm3 (3.60-5.2); RDW 14.9 % (11.6-15.6); WHITE BLOOD COUNT 5.3 K/mm3 (4.0-10.0)
[2021-10-09 21:56] LABS: ALBUMIN 3.6 g/dl (3.4-5.0); CALCIUM 8.7 mg/dL (8.5-10.1)
[2021-10-09 21:57] LABS: BLOOD UREA NITROGEN 26.3 mg/dL (7-18)
[2021-10-09 22:00] LABS: CREATININE 0.9 mg/dL (0.55-1.3)
[2021-10-09 22:01] LABS: BILIRUBIN,TOTAL 1.1 mg/dL (0.2-1); TOT PROT 6.9 g/dl (6.4-8.2)
[2021-10-09] MEDS ORDERED: ACETAMINOPHEN 325 MG TABLET (FP) PO ONE (22:08)
[2021-10-09] MEDS ORDERED: ACETAMINOPHEN 325 MG TABLET (FP) ONE (22:18)
[2021-10-09] MEDS ORDERED: cloNIDine HCL 0.1 MG TABLET PO ONE (23:44)
[2021-10-10] MEDS ORDERED: cloNIDine HCL 0.1 MG TABLET ONE (00:03)
[2021-10-10 01:28] VITALS: BP 111/60; PULSE 67
== END 2021-10-10 01:30 | disposition home or self-care (01) ==
LOC: JER 18:44
DX: R07.9 Chest pain, unspecified (principal); R53.83 Other fatigue
CPT/HCPCS: 36415; 71045-TC-FY; 80053; 84443; 84484; 85025; 93005; 93010; 99285-25; J0735